=== PATIENT | female | born 1940 | race Caucasian/White ===

== ENCOUNTER 2020-01-09 15:05 | Inpatient (IN) | payer MEDICARE, SELFPAY ==
[2020-01-09] VITALS (9 sets, daily range): BP systolic 129–174; BP diastolic 68–102; PULSE 71–89; RESP 16–24; TEMP 36.3–36.4; O2SAT 91–99; BMI 22.2
--- NOTE | ~2020-01-09 | CT_ITS ---
EXAMINATION: CT brain wo con DATE: 01/09/2020 20:08 INDICATION: Headache TECHNIQUE: Computed tomography (CT) of the head was performed without intravenous contrast. The dose- length product was 605.33 mGy-cm. Contrast is identified from prior CT arteriogram procedure. COMPARISON: None FINDINGS: Mild generalized atrophy. There are scattered mild periventricular and subcortical white ma tter changes, most likely related to small vessel ischemic disease (microangiopathy). There is a meeting specialist madeline lacunar infarction of the courtney. No acute intracranial hemorrhage, infarction, mass or mass effect . Midline sagittal images are unremarkable. IMPRESSION: 1. No acute intracranial abnormality. 2: Chronic lacunar infarction of the courtney. 3: Chronic age-related findings. Reviewed, dictated and finalized at location A.
--- NOTE | ~2020-01-09 | US_ITS ---
EXAMINATION: US arterial duplex UE RT DATE: 01/10/2020 10:10 INDICATION: Right brachial artery occlusion. TECHNIQUE: Multiple grayscale and Doppler ultrasound images of the right upper limb were obtained. COMPARISON: CTA 01/09/2020 FINDINGS: There is thrombus in distal right brachial artery with total occlusion of proximal ulnar ar ashish. There is reconstitution of flow in more distal ulnar artery. Peak systolic velocities are 94 cm /s in right innominate artery, 85 cm/s in right subclavian artery, 69 cm/s in right axillary artery, 114 cm/s in mid right brachial artery, 71 cm/s in right radial artery, and 40 cm/s in right ulnar art anisa. IMPRESSION: 1. Total occlusion of the junction of right brachial artery and ulnar artery with reconstitution. Reviewed, dictated and finalized at location A. IMPRESSION: 1. Total occlusion of the junction of right brachial artery and ulnar artery wi th reconstitution.
--- NOTE | ~2020-01-09 | CT_ITS ---
EXAMINATION: CTA UE RT DATE: 01/09/2020 17:27 INDICATION: Numbness in the arm for one hour. Arm is cold. Physician unable to find ulnar and radial pulses. TECHNIQUE: Computed tomography (CT) of the right upper extremity arteries was performed with 150 cc O mnipaque 350 intravenous contrast. The dose-length product was 1104.87 mGy-cm. Automated exposure con trol and iterative reconstruction technique were employed. COMPARISON: None FINDINGS: There is focal occlusion involving approximately 1.7 cm length of the right brachial artery distally at the level of the antecubital fossa. No adjacent obstructing masses or fluid collections identified. No evidence for hematoma or active extravasation of contrast. There is reconstitution of the radial and ulnar arteries after the segment. Attenuated flow in the ulnar artery. IMPRESSION: 1. Focal segmental occlusion right brachial artery at the level of the antecubital fossa with reconst itution distally in the radial and ulnar arteries. Attenuated flow noted in the ulnar artery. Reviewed, dictated and finalized at location A. IMPRESSION: 1. Focal segmental occlusion right brachial artery at the level of the antecubi jameson fossa with reconstitution distally in the radial and ulnar arteries. Attenu ated flow noted in the ulnar artery.
--- NOTE | 2020-01-09 16:14 | PC.NURSE ---
UNABLE TO PALPATE PULSE R RADIAL, ATTEMPTED TO DOPPLER, UNABLE TO FIND PULSE WITH DOPPLER.
--- NOTE | 2020-01-09 16:22 | PC.NURSE ---
JOHN BASHIR AT BEDSIDE. ATTEMPTING TO DOPPLE PULSES.
[2020-01-09 16:31] LABS: Basophils Percent Auto 0.4 % (0.2-1.2); Eosinophils Absolute Auto 0.1 K/mm3 (0-0.3); Eosinophils Percent Auto 0.7 % (0-4.4); Hematocrit 43.7 % (37.0-47.0); Hemoglobin 15.1 g/dL (12.0-15.0); Immature Granulocyte Percent A 0.9 % (0-0.5); Lymphocytes Absolute Auto 1.61 K/mm3 (0.9-3.2); Lymphocytes Percent Auto 14.1 % (18.3-44.2); Mean Corpuscular HGB Conc 34.6 g/dl (32-36); Mean Corpuscular Hemoglobin 31.2 pg (26-34); Mean Corpuscular Volume 90.3 fl (80-100); Mean Platelet Volume 10.8 fl (7.4-10.4); Monocytes Absolute Auto 0.8 K/mm3 (0.1-0.6); Monocytes Percent Auto 7.1 % (2.6-8.5); Neutrophils Absolute Auto 8.8 K/mm3 (1.3-6.7); Neutrophils Percent Auto 76.8 % (45.5-73.1); Platelet Count Result 151 k/mm3 (150-375); Red Blood Count 4.84 M/mm3 (4.2-5.4); Red Cell Distribution Width 11.9 % (11.5-14.5); White Blood Count 11.4 K/mm3 (4.5-10.0)
--- NOTE | 2020-01-09 16:32 | ED.UPPEXIN ---
HPI - Extremity Injury (Upper) General Chief Complaint: Extremity Injury, Upper Stated Complaint: tingling in arm/cold arm Time Seen by Provider: 01/09/20 16:11 Source: patient Mode of arrival: ambulatory Limitations: no limitations History of Present Illness HPI narrative: This patient is a 79 year old female who presents for evaluation of right arm numbness and tingling. She states starting 2 hours ago she developed tingling to her right arm while working in the garden. She also noticed that her right hand seemed to be cold and her states he felt a weaker pulse in her right hand. She also states she had weakness to right hand. Her symptoms appear to be lessening. She takes coumadin for atrial fibrillation. On Thursday she decreased her coumadin in half to 2 mg because she was starting antibiotics. She denies other focal deficits. She denies slurred speech. complaint: injury to: right Related Data Home Medications Medication Instructions Recorded Confirmed albuterol sulfate 2 puff INHALATION DAILY 01/09/20 01/09/20 doxycycline hyclate 100 mg PO DAILY 01/09/20 01/09/20 lisinopril 20 mg PO DAILY 01/09/20 01/09/20 omeprazole 20 mg PO DAILY 01/09/20 01/09/20 oxycodone-acetaminophen [Percocet] 1 tablet PO Q8H PRN 01/09/20 01/09/20 potassium chloride 20 meq PO DAILY 01/09/20 01/09/20 simvastatin 40 mg PO DAILY 01/09/20 01/09/20 warfarin 4 mg PO DAILY 01/09/20 01/09/20 Allergies Allergy/AdvReac Type Severity Reaction Status Date / Time No Known Allergies Allergy Verified 01/09/20 16:07 Review of Systems Review of Systems: All systems reviewed & are unremarkable except as noted in HPI and below Eyes: Eyes: Reports no additional eye complaints ENT: Denies epistaxis Cardiovascular: Cardiovascular: Denies chest pain Respiratory: Respiratory: Reports cough (chronic) and Denies dyspnea Gastrointestinal: Gastrointestinal: Denies abdominal pain, Denies nausea and Denies vomiting Neurologic: Denies headache(s), Reports focal weakness and Reports numbness PMFSH Past Medical History Medical History (Updated 01/09/20 @ 23:38 by Nicolasa Crowley MD) Atrial fibrillation on chronic anticoagulation with Coumadin GERD (gastroesophageal reflux disease) Kidney stones Rheumatoid arthritis Surgical History Surgical History (Updated 01/09/20 @ 23:29 by Tanisha Dumont DO) History of dilation and curettage 1998 History of lobectomy of lung right middle lobe 12/2013 History of tubal ligation 1974 Family History Family History (Updated 01/09/20 @ 23:30 by Tanisha Dumont DO) Mother Cancer Hypertension CHF (congestive heart failure) Acute myocardial infarction Father Cancer Social History Social History (Updated 01/09/20 @ 23:31 by Tanisha Dumont DO) Social History: Primary care physician: Dr. Kj Langley Code status: Full code Smoking packs per day: 1.5 Smoking cigarettes per day: 30.0 Years smoked: 62 Smoking pack-years: 93.00 Smoking status: Current every day smoker Alcohol intake: current Substance use: never Substance use type: does not use Gender identity (if verbalized by the patient): Female Spiritual care concerns: No Exam Narrative: Exam Narrative: GENERAL: Well-appearing, well-nourished, and in no acute distress. HEAD: Normocephalic, atraumatic EYES: PERRLA and EOMI, conjunctiva clear without discharge EARS: TM's clear bilaterally without erythema or dullness NOSE: Nares clear, no rhinorrhea or epistaxis THROAT:Mucous membranes moist, Oropharynx normal without erythema, exudate, peritonsillar swelling or fluctuance NECK: Supple, without lymphadenopathy or mass RESPIRATORY: No respiratory distress, Airway patent, Respirations non-labored, Clear to auscultation without rales, rhonchi or wheeze HEART: Regular rate and rhythm. No murmur heard. Normal peripheral pulses. ABDOMEN: Soft, nontender, nondistended, normal act
[2020-01-09 16:44] LABS: INR 1.6; Prothrombin Time 18.5 Seconds (11.1-14.7)
[2020-01-09 16:45] LABS: Partial Thromboplastin Time 28.4 SECONDS (22.3-36.8)
[2020-01-09 16:50] LABS: Anion Gap 13.8 mmol/L (7-16); Blood Urea Nitrogen 19 mg/dL (7-17); Calcium 7.7 mg/dL (8.4-10.2); Carbon Dioxide 25 mmol/L (22-30); Chloride 104 mmol/L (98-107); Estimated CRCL calculation 64 ml/min; Estimated Glomerular Filt Rate > 60; Glucose 175 mg/dL (65-105); Potassium 2.8 mmol/L (3.4-5.0); Sodium 140 mmol/L (137-145)
--- NOTE | 2020-01-09 17:02 | PC.NURSE ---
PT IN ULTRASOUND AT THIS TIME WILL MEDICATE PER PROVIDER ORDER UPON RETURN.
--- NOTE | 2020-01-09 17:05 | ECG_ITS ---
Measurements Intervals [place] Rate: 79 P: MI: 0 QRS: 29 QRSD: 92 T: 46 QT: 407 QTc: 469 Interpretive Statements ATRIAL FIBRILLATION BORDERLINE R WAVE PROGRESSION, ANTERIOR LEADS NONSPECIFIC ST & T-WAVE ABNORMALITY- INF/LAT LEADS ABNORMAL ECG Electronically Signed On 01-09-2020 19:59:13 CDT by Rashawn Castro D.O.
[2020-01-09] MEDS: HEPARIN SOD/D5W 100 UNITS/ML 25,000 UNITS/250 ML BAG 13 UNITS IV CONT (17:29)
[2020-01-09] MEDS: HEPARIN SODIUM 5,000 UNITS/ML VIAL 5500 UNITS IV PUSH (17:29)
--- NOTE | 2020-01-09 17:31 | PC.NURSE ---
PT BACK FROM CT/ULTRASOUND, HAS BEEN MEDICATED PER PROVIDER ORDER.
[2020-01-09] MEDS: NITROGLYCERIN OINTMENT 1 INCH DOSE TRANSDERM (18:15)
--- NOTE | 2020-01-09 18:18 | PC.NURSE ---
PER JOHN BASHIR, MEAL TRAY CAN BE CALLED AT THIS TIME PRIOR TO CAFE CLOSING, BUT PT CANNOT EAT UNTIL THE VASCULAR SURGEON CALL THE EDP BACK.
[2020-01-09] MEDS: POTASSIUM CHLORIDE 20 MEQ TABLET 40 MEQ PO (18:23)
--- NOTE | 2020-01-09 19:02 | PC.NURSE ---
PER ERP KRYSTEN, PT CAN EAT, NITRO PASTE IS TO BE MOVED FROM PT CHEST TO HER R LOWER ARM, RADIAL PULSES HAVE RETURNED PER ERP KRYSTEN.
--- NOTE | 2020-01-09 19:07 | PC.NURSE ---
PT REPORT TO JEFFREY ESPARZA AT THIS TIME, HE HAS ASSUMED PT CARE.
--- NOTE | 2020-01-09 20:02 | PC.NURSE ---
Upon assessment this nurse assessment Pt states right side of her head hurts and it radiates to right side of neck. Pt stated to MD Crowley the top of her head hurts with pain radiating to right side of her neck. Denies any leg or arm pain at this time. New orders given and fulfilled at this time.
--- NOTE | 2020-01-09 22:08 | ADMGEN ---
This patient, Sonia Green, was admitted to IMU Room 202-01. Patient/family oriented to hospital policies and general routines including ID bracelet, bed and alarms, visiting hours, pain management, procedures, bathroom and other care routines, personal items, smoking policy, room service/diet, and visiting hours. Valuables list has been completed. Information on how to activate the Rapid Response Team has been discussed. Patient/Family are encouraged to report perceived risks to care and to ask questions if they do not understand what they are told or what they should do.
--- NOTE | 2020-01-09 23:25 | PM.IMHP ---
H&P: HPI History of Present Illness Chief complaint: subtherapeutic INR, intermittent right arm Narrative: Date and time of patient contact: 01/09/2020 at 11:30 p.m. Sonia Green is a 79 year old female with a past medical history of atrial fibrillation on chronic anticoagulation with Coumadin who presented to the ER with cold painful right upper extremity. the patient reports that she was out picking blackberries when she began having tingling in her right hand. Her hand rapidly became cold and quite painful. she noticed that she could no longer see her pulse and her wrist. She was having trouble opening and closing her fist. When the symptoms were worsening over a 20 or 30 minutes. She decided to come immediately to the ER. In the ER was noted that she did not have a pulse in her right radial artery. She had a CTA of the upper extremity which demonstrated focal segmental occlusion of the right brachial artery at the level of the antecubital fossa with reconstitution distally the radial ulnar arteries. Patient was started on heparin drip with immediate improvement in her symptoms. The patient had recently been placed on antibiotic therapy for a bronchitis. Her Coumadin dose had been decreased by her primary care physician at the time of initiation of antibiotic therapy. When she arrived to the ER the patient's INR was noted to be 1.6. Review of Systems Review of Systems: Narrative: 12 systems were reviewed with pertinent positives and negatives per HPI. Except as documented in the HPI, all other systems were reviewed and are negative. [facility] Past Medical History Medical History (Updated 01/10/20 @ 08:40 by Eris Ahumada MD) Atrial fibrillation on chronic anticoagulation with Coumadin GERD (gastroesophageal reflux disease) Kidney stones Rheumatoid arthritis Surgical History Surgical History (Updated 01/10/20 @ 08:45 by Tanisha Dumont DO) History of bilateral carpal tunnel release in the 1980s History of dilation and curettage 1998 History of lobectomy of lung right middle lobe 12/2013 History of tubal ligation 1974 Family History Family History Mother , in her 80s due to heart failure Hypertension CHF (congestive heart failure) Acute myocardial infarction Fallopian tube cancer, carcinoma Father Carcinoma of colon Social History Social History (Updated 01/10/20 @ 08:44 by Tanisha Dumont DO) Social History: Primary care physician: Dr. Kj Langley Code status: Full code Smoking packs per day: 1.5 Smoking cigarettes per day: 30.0 Years smoked: 62 Smoking pack-years: 93.00 Smoking status: Current every day smoker Alcohol intake: current Substance use: never Substance use type: does not use Additional living arrangements comments: She lives with her of 53 years. 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 Gender identity (if verbalized by the patient): Female Spiritual care concerns: No Meds Home Medications and Allergies Home Medications Medication Instructions Recorded Confirmed Type albuterol sulfate 2 puff INHALATION DAILY 01/09/20 01/09/20 History doxycycline hyclate 100 mg PO DAILY 01/09/20 01/09/20 History lisinopril 20 mg PO DAILY 01/09/20 01/09/20 History omeprazole 20 mg PO DAILY 01/09/20 01/09/20 History oxycodone-acetaminophen [Percocet] 1 tablet PO Q8H PRN 01/09/20 01/09/20 History potassium chloride 20 meq PO DAILY 01/09/20 01/09/20 History simvastatin 40 mg PO DAILY 01/09/20 01/09/20 History warfarin 4 mg PO DAILY 01/09/20 01/09/20 History Allergies Allergy/AdvReac Type Severity Reaction Status Date / Time No Known Allergies Allergy Verified 01/09/20 16:07 Vital Signs Vital Signs - 24 hr 01/09/20 15:23 01/09/20 16:22 01/09/20 17:25 Temperature 97.4 F L Pulse Rate 75 71 89 Re
[2020-01-09 23:56] LABS: Partial Thromboplastin Time > 200.0 SECONDS (22.3-36.8)
[2020-01-10] VITALS (12 sets, daily range): BP systolic 138–154; BP diastolic 71–82; PULSE 64–87; RESP 18–20; TEMP 36.1–36.8; O2SAT 95–98
--- NOTE | 2020-01-10 | ECHO_ITS ---
Patient Info Name: Sonia Green Age: 79 years : 1940 Gender: Female Ht: 67 in Wt: 142 lbs BSA: 1.75 m2 HR: 75 bpm BP: 152 / 82 mmHg Heart Rhythm: Atrial Fibrillation Technical Quality: Excellent Exam Date: 01/10/2020 7:58 AM Exam Location: [facility] Patient Status: Outpatient Admit Date: 01/09/2020 Staff Ordering Physician: Eris Ahumada MD Car Dryer: Kajal Layne RDCS Attending Provider: Claudette Valdez PA-C Exam Type: CA echo doppler color flow Study Info Indications I48.1 - Persistent atrial fibrillation Complete two-dimensional, color flow and Doppler transthoracic echocardiogram is performed. Summary 1. Left ventricular chamber dimension is normal. 2. Left ventricular wall thickness is normal. 3. A small intramural thrombus is visualized in the left ventricular apex. 4. Mild hypokinesis of the left ventricular apical cap. 5. Left ventricular systolic function is mildly reduced with an ejection fraction by Biplane Method of Discs of 48 %. 6. Evidence for elevated left venticular end-diastolic pressure. 7. E/e' 16.0 is elevated. 8. Left atrial chamber dimension is moderately enlarged. 9. There is mild to moderate mitral valve regurgitation. 10. There is mild to moderate tricuspid valve regurgitation. 11. Mild pulmonary hypertension, estimated pulmonary arterial systolic pressure is 44 mmHg. Left Ventricle Left ventricular chamber dimension is normal. Left ventricular wall thickness is normal. A small intramural thrombus is visualized in the left ventricular apex. Mild hypokinesis of the left ventricular apical cap. Left ventricular systolic function is mildly reduced with an ejection fraction by Biplane Method of Discs of 48 %. Evidence for elevated left venticular end-diastolic pressure. E/e' 16.0 is elevated. Left ventricular chamber dimension is normal. Left ventricular systolic function is mildly reduced, estimated at Empty. E/e' 16.0 is elevated. Right Ventricle Right ventricular chamber dimension is normal. Right ventricular wall thickness is normal. Right ventricular systolic function is normal. Right ventricular chamber dimension is normal. Right ventricular systolic function is normal. Left Atria Left atrial chamber dimension is moderately enlarged. Left atrial chamber dimension is moderately enlarged. Right Atria Right atrial chamber dimension is mildly enlarged. Right atrial chamber dimension is mildly enlarged. Atrial Septum Interatrial septum not well visualized by 2D imaging. Interatrial septum not well visualized by 2D imaging. Aortic Valve mild sclerosis of the aortic valve leaflets. There is trace aortic valve regurgitation. There is no aortic valve stenosis. There is no aortic valve stenosis. There is trace aortic valve regurgitation. Pulmonic Valve Pulmonary valve is not well visualized. There is trace pulmonic regurgitation. There is no pulmonic valve stenosis. There is no pulmonic valve stenosis. There is trace pulmonic regurgitation. Mitral Valve The mitral valve has thickened leaflets. There is mild to moderate mitral valve regurgitation. There is no mitral valve stenosis. The mitral valve has thickened leaflets. There is no mitral valve stenosis. There is mild to moderate mitral valve regurgitation. Tricuspid Valve The tricuspid valve leaflets are normal. There is mild to moderate tricuspid valve regurgitation. Mild pulmonary hypertension, estimated pulmonary ar
[2020-01-10 05:06] LABS: Basophils Percent Auto 0.3 % (0.2-1.2); Eosinophils Absolute Auto 0.1 K/mm3 (0-0.3); Eosinophils Percent Auto 0.6 % (0-4.4); Hematocrit 41.5 % (37.0-47.0); Hemoglobin 14.1 g/dL (12.0-15.0); Immature Granulocyte Absolute 0.08 K/mm3 (0.00-0.031); Immature Granulocyte Percent A 0.6 % (0-0.5); Immature Platelet Fraction Pct 6.4 % (0.9-11.2); Lymphocytes Percent Auto 25.3 % (18.3-44.2); Mean Corpuscular Hemoglobin 30.3 pg (26-34); Mean Corpuscular Volume 89.2 fl (80-100); Mean Platelet Volume 11.3 fl (7.4-10.4); Monocytes Absolute Auto 0.9 K/mm3 (0.1-0.6); Neutrophils Absolute Auto 8.6 K/mm3 (1.3-6.7); Neutrophils Percent Auto 66.2 % (45.5-73.1); Platelet Count Result 132 k/mm3 (150-375); Red Blood Count 4.65 M/mm3 (4.2-5.4); Red Cell Distribution Width 11.8 % (11.5-14.5)
[2020-01-10 05:20] LABS: Anion Gap 9.9 mmol/L (7-16); Blood Urea Nitrogen 16 mg/dL (7-17); Calcium 7.6 mg/dL (8.4-10.2); Carbon Dioxide 27 mmol/L (22-30); Chloride 104 mmol/L (98-107); Estimated CRCL calculation 64 ml/min; Estimated Glomerular Filt Rate > 60; Glucose 91 mg/dL (65-105); Potassium 2.9 mmol/L (3.4-5.0); Sodium 138 mmol/L (137-145)
--- NOTE | 2020-01-10 08:31 | PM.CNCAR ---
Assessment and Plan Assessment and plan (1) Ischemia of right upper extremity: Code(s): I99.8 - Other disorder of circulatory system Status: Acute Assessment and Plan: She seems to have acute occlusion of right brachial artery, likely is due to thrombus from cardiac source as she has atrial fibrillation. She seems to be much better now with heparin, and nitroglycerin, will repeat arterial duplex to look at the lesion site, now is that she has better pulse is I think the clot is resolved. If there is no residual lesion then she can be switched to Eliquis 10 twice a day for 7 days and continue with 5 bid for treatment for atrial fibrillation (2) Chronic hypokalemia: Code(s): E87.6 - Hypokalemia Status: Acute (3) Subtherapeutic international normalized ratio (INR): Code(s): R79.1 - Abnormal coagulation profile Status: Acute Assessment and Plan: due to the event she has no longer a candidate for Coumadin she should be switched to Eliquis long-term (4) Critical ischemia of upper extremity: Code(s): I99.8 - Other disorder of circulatory system Status: Acute Assessment and Plan: with subacute occlusion of the distal brachial artery, now better with the use of heparin and nitroglycerin, she needs to be on Eliquis for long-term anticoagulation (5) Chronic atrial fibrillation: Code(s): I48.20 - Chronic atrial fibrillation, unspecified Status: Acute Assessment and Plan: she has chronic atrial fibrillation rate is well controlled, which he needs to be on better agent for anticoagulation. Echocardiogram done today showed slightly abnormal left ventricular systolic function with EF 45% and lateral hypokinesis. History of Present Illness History of Present Illness Consult date/time: 01/10/20 08:31 chief complaint is right arm pain and numbness 79-year-old lady with history of hypertension, history of chronic atrial fibrillation and history of dyslipidemia into the hospital because of sudden onset feeling of pain and numbness of the right arm. As she was working outside in the y[place] she had sudden onset feeling of numbness of the l right arm at the level of the elbow and from there below subsequently had significant weakness and pain to that area and then the pain and numbness start climbing up to the level of close to right shoulder. Initially noted not to have pulse at the radial per ER note, CT of the arm was done showed subtotal occlusion of the brachial artery, with some blood flowing distally to ulnar and radial artery. She was started on heparin and nitroglycerin locally, subsequently pulse improved and subsequently she felt better. Apparently she is on Coumadin for atrial fibrillation and her INR is 1.6. Was recently changed due to the fact that she was started on antibiotics. She is on Coumadin for AFib and is managed by primary care physician. No history of stroke nausea palpitation no history of dizziness. No history of known coronary artery disease no history of previous myocardial infarction. Reason For Visit: subtherapeutic INR, intermittent right arm Review of Systems Constitutional: Constitutional: Reports fatigue Cardiovascular: Cardiovascular: Reports as per HPI Respiratory: Respiratory: Reports dyspnea on exertion PMFSH Past Medical History Medical History Atrial fibrillation on chronic anticoagulation with Coumadin GERD (gastroesophageal reflux disease) Kidney stones Rheumatoid arthritis Surgical History Surgical History History of dilation and curettage 1998 History of lobectomy of lung right middle lobe 12/2013 History of tubal ligation 1974 Family History Family History Mother Cancer Hypertension CHF (congestive heart failure) Acute myocardial infarction
[2020-01-10 08:52] LABS: Partial Thromboplastin Time > 200.0 SECONDS (22.3-36.8)
[2020-01-10] MEDS: APIXABAN 5 MG TABLET 10 MG PO (10:05)
[2020-01-10] MEDS: amLODIPine BESYLATE 2.5 MG TABLET PO ×2 (10:06→16:50)
[2020-01-10] MEDS: PANTOPRAZOLE 40 MG TABLET PO (10:08)
[2020-01-10] MEDS: SIMVASTATIN 20 MG TABLET 40 MG PO (10:09)
[2020-01-10] MEDS: POTASSIUM CHLORIDE 20 MEQ TABLET.ER 40 MEQ PO (10:09)
[2020-01-10] MEDS: lisinopriL 20 MG TABLET PO (11:21)
[2020-01-10 12:04] LABS: Potassium 3.7 mmol/L (3.4-5.0)
[2020-01-10 12:07] LABS: Magnesium 0.5 mg/dL (1.6-2.3)
[2020-01-10] MEDS: MAGNESIUM SULFATE 3GM/D5W100ML 3 GM/100 ML BAG IVPB (13:15)
[2020-01-10 15:17] LABS: Magnesium 1.8 mg/dL (1.6-2.3)
--- NOTE | 2020-01-10 15:41 | PM.DS ---
DS: Admitting Diagnosis Admitting Diagnosis Admitting Diagnosis: Other disorder of circulatory system DS: Discharge Diagnosis Discharge Diagnosis (1) Critical ischemia of upper extremity: Code(s): I99.8 - Other disorder of circulatory system Status: Acute Assessment and Plan: ----- on admission, the patient had pain and numbness to right upper extremity and the extremity was cold. In the ER she had an upper extremity CTA which showed focal segmental occlusion of the right brachial artery at the level of the antecubital fossa with reconstruction distally in the radial and ulnar arteries. Attenuated flow noted in the ulnar artery. Patient was already on Coumadin but her INR was subtherapeutic. She was placed on a heparin drip and her symptoms improved. She saw Dr. Ahumada while hospitalized. She had good pulses and was back to baseline throughout her stay. She did undergo a Doppler ultrasound which showed total occlusion although she had good pulses without symptoms. I spoke with Dr. Ahumada about these results and he said to transition her to Eliquis and follow-up in the office in 1 week. The patient has a history of atrial fibrillation with subtherapeutic INR. (2) Chronic atrial fibrillation: Code(s): I48.20 - Chronic atrial fibrillation, unspecified Status: Acute Assessment and Plan: ----- Rate controlled, now on Eliquis. (3) Subtherapeutic international normalized ratio (INR): Code(s): R79.1 - Abnormal coagulation profile Status: Acute Assessment and Plan: ----- Patient transition to Eliquis (4) Chronic hypokalemia: Code(s): E87.6 - Hypokalemia Status: Acute Assessment and Plan: ----- hypokalemic likely due to her magnesium which was 0.6. This was replaced and she was placed on magnesium at discharge. Repeat BMP [address] Ahumada agrees to follow with this. (5) GERD (gastroesophageal reflux disease): Code(s): K21.9 - Gastro-esophageal reflux disease without esophagitis Status: Acute Assessment and Plan: ----- Continue home medications (6) Hypertension: Code(s): I10 - Essential (primary) hypertension Status: Acute Assessment and Plan: ----- blood pressure 138/74. Continue home medications (7) Hypomagnesemia: Code(s): E83.42 - Hypomagnesemia Status: Acute Assessment and Plan: ----- Supplement (8) PVCs (premature ventricular contractions): Code(s): I49.3 - Ventricular premature depolarization Status: Acute Assessment and Plan: ----- asymptomatic and likely due to decreased Mag. Mag was given at discharge as well as metoprolol started. (9) Systolic heart failure: Code(s): I50.20 - Unspecified systolic (congestive) heart failure Status: Acute Assessment and Plan: newly diagnosed but euvolemic and not in exacerbation. Plan is to follow-up with cardiology for an outpatient catheterization. She does have mild hypokinesis with an EF of 48%. DS: Summary Hospital Course Reason for hospitalization: right limb ischemia Hospital Course: patient is a 79-year-old female who presented emergency room for sudden onset of right arm numbness and tingling found to have a cold limb. Vitals were stable in the ER. Initial white blood cell count 11.4, hemoglobin 15.1, hematocrit 43.7, platelets 151. BMP showed a critical potassium 2.8 which was replaced. Patient's symptoms were resolving while in the ER and was admitted to the hospitalist service With cardiology consult. Please see above for further details. Patient was educated about the worrisome signs and symptoms come back to emergency room for was discharged stable condition and plans to follow-up with cardiology in 1 week. Status at Discharge Functional status at discharge: independent ambulation Overall status at discharge: patient is back to baseline Time
== END 2020-01-10 17:27 | disposition home or self-care (01) | DRG 303 ==
LOC: ANHED 19:13 → ANHIMU 20:48
PROVIDERS: Physician Assistant; Admitting Provider Internal Medicine; Emergency Provider General Practice; PCP Family Medicine; Visit Provider Internal Medicine
DX: I99.8 Other disorder of circulatory system (principal); E83.42 Hypomagnesemia; E87.6 Hypokalemia; I48.20 Chronic atrial fibrillation, unspecified; I11.0 Hypertensive heart disease with heart failure; I50.20 Unspecified systolic (congestive) heart failure; I49.3 Ventricular premature depolarization; R79.1 Abnormal coagulation profile; K21.9 Gastro-esophageal reflux disease without esophagitis; M06.9 Rheumatoid arthritis, unspecified; F17.210 Nicotine dependence, cigarettes, uncomplicated; Z79.01 Long term (current) use of anticoagulants; Z79.899 Other long term (current) drug therapy; Z87.442 Personal history of urinary calculi
CPT/HCPCS: 36415; 70450; 73206; 80048; 83735; 84132; 85025; 85055; 85610; 85730; 93005; 93306; 93931; 96365; 96366; 96375; 99285; A9270; G0378; J0131; J1644; J3475; Q9967

== ENCOUNTER 2020-08-14 14:38 | Outpatient (CLI) | payer MEDICARE, SELFPAY | END 2020-08-14 14:39 | disposition home or self-care (01) | LOC: ANHCOVIDVC 14:38 | PROVIDERS: PCP Family Medicine; Visit Provider Family Medicine | DX: Z23 Encounter for immunization (principal) | CPT/HCPCS: 0001A; 91300 ==

== ENCOUNTER 2020-09-04 14:37 | Outpatient (CLI) | payer MEDICARE, SELFPAY | END 2020-09-04 14:38 | disposition home or self-care (01) | LOC: ANHCOVIDVC 14:37 | PROVIDERS: PCP Family Medicine | DX: Z23 Encounter for immunization (principal) | CPT/HCPCS: 0002A; 91300 ==

== ENCOUNTER → 2021-11-18 14:59 | Outpatient (CLI) | payer MEDICARE, SELFPAY ==
--- NOTE | ~2021-11-18 | XR_ITS ---
XR lumbar spine min 4V DATE: 11/18/2021 15:20 INDICATION: Lumbago, sciatica TECHNIQUE: AP, bilateral oblique, lateral and coned lateral lumbosacral views COMPARISON: 05/26/2013 CT abdomen pelvis FINDINGS: Mild rotatory levoscoliosis of the lumbar spine. There is mild to moderate loss of height and anterior wedging of L2 consistent with compression fract ure, not present on 05/26/2013. No other lumbar spine fracture There is moderate degenerative disc disease at L3-4 and L5-S1. Is evident. There is diffuse osteopenia. There is severe degenerative disc disease and minimal grade 1 anterolisthesis at L4-5. There is promi nent degenerative change at the apophyseal joints of the lower lumbar and lumbosacral area. No spondy lolysis is noted. The sacroiliac joints are intact. Abdominal aortic calcification, without apparent aneurysm. Bilateral common iliac artery calcificatio n. IMPRESSION: Mild to moderate L2 compression fracture Osteopenia Severe degenerative disc disease at L4-5 Moderate degenerative disc disease at L3-4 and L5-S1 Middle grade 1 anterolisthesis at L4-5 due to degenerative change at the apophyseal joints Reviewed, dictated and finalized at location A. IMPRESSION: Mild to moderate L2 compression fracture Osteopenia Severe degenerative disc disease at L4-5 Moderate degenerative disc disease at L3-4 and L5-S1 Middle grade 1 anterolisthesis at L4-5 due to degenerative change at the apophy seal joints
== END ==
PROVIDERS: PCP Family Medicine; Visit Provider Family Medicine
DX: M54.40 Lumbago with sciatica, unspecified side (principal); M51.36 Other intervertebral disc degeneration, lumbar region; M51.37 Other intervertebral disc degeneration, lumbosacral region; M85.88 Other specified disorders of bone density and structure, other site
CPT/HCPCS: 72110

== ENCOUNTER 2022-01-16 12:25 | Outpatient (CLI) | payer MEDICARE, SELFPAY ==
--- NOTE | ~2022-01-16 | MR_ITS ---
EXAMINATION: MR brain/brain stem wo con DATE: 01/16/2022 13:07 INDICATION: Altered mental status, unspecified. TECHNIQUE: Magnetic resonance imaging (MRI) of the brain and brainstem was performed without intraven ous contrast. COMPARISON: Head CT 01/09/2020 FINDINGS: There are scattered areas of nonspecific increased T2-weighted signal intensity in the cere bral white matter. There is an old lacunar infarct in the courtney. There is no intracranial hemorrhage, acute infarction, or abnormal intracranial mass lesion. The ventricles are normal in size. The [place] sinuses are clear. There are likely changes of ocular lens replacement surgeries. The mastoid air cells are normal. IMPRESSION: 1. 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 2. Moderate nonspecific cerebral white matter disease , which likely represents chronic small vessel ischemic disease. Reviewed, dictated and finalized at location A.
== END 2022-01-16 12:26 | disposition home or self-care (01) ==
PROVIDERS: PCP Family Medicine; Visit Provider Family Medicine
DX: R41.82 Altered mental status, unspecified (principal); R93.0 Abnormal findings on diagnostic imaging of skull and head, not elsewhere classified
CPT/HCPCS: 70551

== ENCOUNTER 2022-05-15 00:57 | Day surgery (SDC) | payer MEDICARE, SELFPAY ==
[2022-05-05 11:27] VITALS: BMI 22.1
--- NOTE | 2022-05-15 10:34 | PM.HPGS ---
History of Present Illness History of Present Illness Consent: Risks, benefits, and alternatives have been discussed and questions answered. Patient agrees to proceed with procedure. Chief complaint: Diarrhea Narrative: Sonia Green is a 82 year old female Presents for colonoscopy. Patient reports having had diarrhea for 6 months. She has rather persistent loose diarrhea stools. Occasionally will wake her at night. She sometimes light mucous in the small tinge of blood in her stools. She denies any fevers. She has had no weight loss. She reports no recent change in medications. No change in diet. Her family members are all healthy. She has no ill pets. She has not had any significant travel recently. Recent stool cultures found to be negative. She does report that she ate peanut butter in the spring and at that time it was recalled because of salmonella possibly. Review of Systems Review of Systems: Review of systems noncontributory. [facility] Past Medical History Medical History (Updated 05/15/22 @ 10:36 by Will Worley MD) Atrial fibrillation on chronic anticoagulation with Coumadin GERD (gastroesophageal reflux disease) GERD (gastroesophageal reflux disease) Hyperlipidemia Hypertension Kidney stones Rheumatoid arthritis TIA (transient ischemic attack) Surgical History Surgical History (Updated 01/10/20 @ 08:45 by Tanisha Dumont DO) History of bilateral carpal tunnel release in the History of dilation and curettage 1998 History of lobectomy of lung right middle lobe 12/2013 History of tubal ligation 1974 Family History Family History Mother , in her 80s due to heart failure Hypertension CHF (congestive heart failure) Acute myocardial infarction Fallopian tube cancer, carcinoma Father Carcinoma of colon Social History Social History (Updated 01/10/20 @ 08:44 by Tanisha Dumont DO) Social History: Primary care physician: Dr. Kj Langley Code status: Full code Smoking packs per day: 1 Smoking cigarettes per day: 20.0 Years smoked: 60 Smoking pack-years: 60.00 Smoking status: Current every day smoker Tobacco type: cigarettes Alcohol intake: current Alcohol use details: rare Substance use: never Substance use type: does not use Living arrangements: with family Additional living arrangements comments: She lives with her of 53 years. 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 Gender identity (if verbalized by the patient): Female Spiritual care concerns: No Meds Home Medications and Allergies Home Medications Medication Instructions Recorded Confirmed Type albuterol sulfate 90 mcg/actuation 2 puff inhalation DAILY 01/09/20 05/15/22 History aerosol inhaler lisinopril 20 mg tablet 20 mg PO DAILY 01/09/20 05/15/22 History omeprazole 20 mg capsule,delayed 20 mg PO DAILY 01/09/20 05/15/22 History release potassium chloride 20 mEq 20 meq PO DAILY 01/09/20 05/15/22 History tablet,extended release(part/cryst) simvastatin 40 mg tablet 40 mg PO DAILY 01/09/20 05/15/22 History magnesium oxide 200 mg PO BID #60 tabs 01/10/20 05/15/22 Rx metoprolol succinate 25 mg 12.5 mg PO DAILY #30 tabs 01/10/20 05/15/22 Rx tablet,extended release 24 hr warfarin 3 mg tablet 3 mg PO DAILY 05/05/22 05/15/22 History Allergies Allergy/AdvReac Type Severity Reaction Status Date / Time No Known Allergies Allergy Verified 05/15/22 10:14 Exam Narrative: Physical exam reveals patient to be alert. Vital signs stable. HEENT exam is unremarkable. Patient is anicteric. Lungs are clear to auscultation and percussion. Heart is without murmur or extra sounds. Abdomen bowel sounds are present soft nontender with no organomegaly. Digital external rectal exam is normal. Assessment and Plan Assessment and pl
--- NOTE | 2022-05-15 10:35 | WPDANESEPPF ---
Anes - Initial Pre Proc Eval Procedure: Operation Date: 05/15/22 10:30 Proposed Procedures p Colonoscopy - Will Worley MD Date/Time: 05/15/22 10:35 Surgeon: Will Worley MD Pre Op Diagnosis: Diarrhea Patient Data Age: 82 Gender: F Height: 1.7 m Weight: 64 kg Allergies Allergy/AdvReac Type Severity Reaction Status Date / Time No Known Allergies Allergy Verified 05/15/22 10:14 Home Medications Medication Instructions Recorded Confirmed Type albuterol sulfate 90 mcg/actuation 2 puff inhalation DAILY 01/09/20 05/15/22 History aerosol inhaler lisinopril 20 mg tablet 20 mg PO DAILY 01/09/20 05/15/22 History omeprazole 20 mg capsule,delayed 20 mg PO DAILY 01/09/20 05/15/22 History release potassium chloride 20 mEq 20 meq PO DAILY 01/09/20 05/15/22 History tablet,extended release(part/cryst) simvastatin 40 mg tablet 40 mg PO DAILY 01/09/20 05/15/22 History magnesium oxide 200 mg PO BID #60 tabs 01/10/20 05/15/22 Rx metoprolol succinate 25 mg 12.5 mg PO DAILY #30 tabs 01/10/20 05/15/22 Rx tablet,extended release 24 hr warfarin 3 mg tablet 3 mg PO DAILY 05/05/22 05/15/22 History Patient hx anesthesia problems: none Family hx anesthesia problems: none Results Review: All pre-operative results and documents have been reviewed as part of the pre-operative evaluation. [facility] Past Medical History Medical History Atrial fibrillation on chronic anticoagulation with Coumadin GERD (gastroesophageal reflux disease) GERD (gastroesophageal reflux disease) Hyperlipidemia Hypertension Kidney stones Rheumatoid arthritis TIA (transient ischemic attack) Surgical History Surgical History History of bilateral carpal tunnel release in the History of dilation and curettage 1998 History of lobectomy of lung right middle lobe 12/2013 History of tubal ligation 1974 Family History Family History Mother , in her 80s due to heart failure Hypertension CHF (congestive heart failure) Acute myocardial infarction Fallopian tube cancer, carcinoma Father Carcinoma of colon Social History Social History Social History: Primary care physician: Dr. Kj Langley Code status: Full code Smoking packs per day: 1 Smoking cigarettes per day: 20.0 Years smoked: 60 Smoking pack-years: 60.00 Smoking status: Current every day smoker Tobacco type: cigarettes Alcohol intake: current Alcohol use details: rare Substance use: never Substance use type: does not use Living arrangements: with family Additional living arrangements comments: She lives with her of 53 years. 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 Gender identity (if verbalized by the patient): Female Spiritual care concerns: No Anes - Eval Final PreProcedure Day of Procedure 05/15/22 10:35 Patient weight: normal Heart: irregular rhythm Lungs: clear to auscultation Airway: Mallampati scale class II Neurological: other (alert) Last oral intake: >/= 8 hours ASA classification: III Emergent: no Anesthetic plan: proceed Anesthesia type and monitoring: general GIVS and standard monitoring Results Review: All pre-operative results and documents have been reviewed as part of the pre-operative evaluation. Informed Consent: The patient's anesthetic plan and its attendant risks and benefits were discussed with the patient/family/POA. Questions were solicited and answers provided to the satisfaction of the patient/family/POA.
[2022-05-15] MEDS: LACTATED RINGERS 1,000 ML 150 ML IV CONT (10:42)
[2022-05-15 10:49] VITALS: BP 147/94; PULSE 98; RESP 18; TEMP 36.6; O2SAT 98
[2022-05-15 10:59] LABS: INR 1.3
--- NOTE | 2022-05-15 11:20 | SUR.OPER ---
1113: DR HANSEN MADE AWARE OF PT/INR RESULTS, NO NEW ORDERS.
[2022-05-15 11:38] VITALS: BP 153/82; PULSE 76; RESP 20; O2SAT 96
[2022-05-15 11:48] VITALS: BP 148/85; PULSE 83; RESP 26; O2SAT 100
[2022-05-15 11:58] VITALS: BP 159/86; PULSE 74; RESP 21; O2SAT 100
== END 2022-05-15 12:09 | disposition home or self-care (01) ==
PROVIDERS: PCP Family Medicine; Visit Provider Internal Medicine Gastroenterology
PROC: 0DJD8ZZ Inspection of Lower Intestinal Tract, Via Natural or Artificial Opening Endoscopic (ICD-10-PCS; CPT 45378; principal; 2022-05-15 10:30)
DX: K52.832 Lymphocytic colitis (principal); K64.8 Other hemorrhoids; K57.30 Diverticulosis of large intestine without perforation or abscess without bleeding; I48.91 Unspecified atrial fibrillation; I10 Essential (primary) hypertension; E78.5 Hyperlipidemia, unspecified; M06.9 Rheumatoid arthritis, unspecified; K21.9 Gastro-esophageal reflux disease without esophagitis; Z86.73 Personal history of transient ischemic attack (TIA), and cerebral infarction without residual deficits; Z79.51 Long term (current) use of inhaled steroids; Z79.01 Long term (current) use of anticoagulants; Z90.2 Acquired absence of lung [part of]; F17.210 Nicotine dependence, cigarettes, uncomplicated
CPT/HCPCS: 45380; 36415; 85610; 88305; J2704; J7120

== ENCOUNTER 2022-05-27 08:55 | Outpatient (CLI) | payer MEDICARE, SELFPAY ==
--- NOTE | ~2022-05-27 | XR_ITS ---
EXAMINATION: XR small bowel follow through DATE: 05/27/2022 11:27 INDICATION: Diarrhea and bloating TECHNIQUE: Band Aid Machine Operator radiograph(s) of the abdomen was/were obtained. Oral contrast was administered, and sequential radiographs of the abdomen were obtained until oral contrast was noted to be in the proxi mal colon. A total of 16 fluoroscopic images and 7 overhead radiographs of the small bowel were obtai divina. Fluoroscopy exposure time was 2.7 minutes. COMPARISON: 05/26/2013 FINDINGS: Transit time from the stomach to proximal colon was approximately 1 hour. There is a persistent stric ture of an approximately 5-6 cm length of small bowel in the right lower quadrant positioned along th e medial side of the cecum which appears to taper smoothly at the proximal and distal margins with no evident shouldering. On one of the images there appear to be longitudinal folds along the segment. T here is no dilation of the more upstream small bowel to suggest a significant obstruction. The termin al ileum is not well distended but appears unremarkable. There is normal caliber and mucosal fold pat tern throughout the more proximal small bowel. IMPRESSION: 1. Persistent nonobstructing stricture of a 5-6 cm segment of small bowel in the right lower quadrant which could be due to either mural thickening or potentially extrinsic compression. Recommend furthe r evaluation with postcontrast CT of the abdomen and pelvis. Reviewed, dictated and finalized at location A. STRIPPER IMPRESSION: 1. Persistent nonobstructing stricture of a 5-6 cm segment of small bowel in th e right lower quadrant which could be due to either mural thickening or potenti ally extrinsic compression. Recommend further evaluation with postcontrast CT o f the abdomen and pelvis.
== END 2022-05-27 08:56 | disposition home or self-care (01) ==
PROVIDERS: PCP Family Medicine; Visit Provider Internal Medicine Gastroenterology
DX: R19.7 Diarrhea, unspecified (principal)
CPT/HCPCS: 74250

== ENCOUNTER 2022-06-05 09:13 | Outpatient (CLI) | payer MEDICARE, SELFPAY ==
--- NOTE | ~2022-06-05 | CT_ITS ---
CT Abdomen and Pelvis with contrast. History: Abnormal small bowel follow-through, evaluate for bowel obstruction/external compression. Spiral CT of the abdomen and pelvis was performed after the administration of intravenous contrast. 1 00 cc of Omnipaque 350 was administered intravenously without complication. Dose reduction technique was used on this scan by utilizing automated exposure control and iterative reconstruction technique. The dose-length product (DLP) was 310.99 mGy-cm. COMPARISON: 05/26/2013 Findings: Scans through the lung bases demonstrate peripheral, basilar interstitial thickening. The liver, spleen, pancreas, gallbladder, and adrenal glands are within normal limits. Bilateral nono bstructing renal stones are present. No evidence of aortic aneurysm. No lymphadenopathy is seen. There is no evidence of bowel obstruction. There is no evidence to suggest acute appendicitis or dive rticulitis. Images through the pelvis were performed. Urinary bladder unremarkable. No adnexal mass seen. No asci catalino is seen. L2 compression fracture noted. Impression: No significant abnormality of small bowel identified. No extrinsic compression identified. Bilateral nonobstructing nephrolithiasis. L2 compression fracture. Mild bibasilar chronic interstitial pulmonary disease. Reviewed, dictated and finalized at [facility]. W BALER Impression: No significant abnormality of small bowel identified. No extrinsic compression identified. Bilateral nonobstructing nephrolithiasis. L2 compression fracture. Mild bibasilar chronic interstitial pulmonary disease.
[2022-06-05 09:45] LABS: Estimated Glomerular Filt Rate 60
== END 2022-06-05 09:14 | disposition home or self-care (01) ==
PROVIDERS: PCP Family Medicine; Visit Provider Internal Medicine Gastroenterology
DX: R19.7 Diarrhea, unspecified (principal); N20.0 Calculus of kidney; M48.56XA Collapsed vertebra, not elsewhere classified, lumbar region, initial encounter for fracture; J84.9 Interstitial pulmonary disease, unspecified
CPT/HCPCS: 74177; Q9967

== ENCOUNTER 2022-07-19 17:54 | Inpatient (IN) | payer MEDICARE, SELFPAY ==
--- NOTE | ~2022-07-19 | CT_ITS ---
Non-contrast CT scan of the Abdomen and Pelvis Clinical indication: Epigastric pain Technique: 5 mm axial scans were obtained through the abdomen and pelvis without intravenous or oral contrast. Dose reduction technique was used on this scan by utilizing automated exposure control and iterative reconstruction technique. The dose-length product (DLP) was 285.33 mGy-cm. COMPARISON: 06/05/2022 Findings: Images through the lung bases reveal stable mild bibasilar chronic interstitial disease. Bilateral nonobstructing renal stones are present. There is mild left perinephric stranding, which ra ises the possibility of a recently passed left renal stone. No distinct hydronephrosis evident. Proba ble small hyperdense left renal cyst present. The liver, spleen, pancreas, gallbladder, and adrenals appear normal. There is no aortic aneurysm. There is no evidence of bowel obstruction. No evidence to suggest appendicitis. Images through the pelvis were performed. There is no evidence of ascites or lymphadenopathy. Urinary bladder unremarkable. No adnexal mass seen. No ascites. Stable L2 compression fracture noted. Impression: Bilateral nonobstructing nephrolithiasis. Mild asymmetric left perinephric stranding. Correlate for possibility of recently passed left renal s tone. No stoney hydronephrosis evident. No ureteral stone seen currently. Mild bibasilar chronic interstitial pulmonary disease. Reviewed, dictated and finalized at location . PRODUCTION COOK Impression: Bilateral nonobstructing nephrolithiasis. Mild asymmetric left perinephric stranding. Correlate for possibility of recent ly passed left renal stone. No stoney hydronephrosis evident. No ureteral stone seen currently. Mild bibasilar chronic interstitial pulmonary disease.
--- NOTE | ~2022-07-19 | US_ITS ---
Limited Abdominal Sonogram: Real-time sonographic imaging of the right upper quadrant was performed. Clinical History: Epigastric pain Findings: The liver appears normal with no evidence of mass lesion or bile duct dilatation. Main por jameson vein demonstrates normal direction of flow. The gallbladder is well distended, and appears normal with no evidence of gallstone or wall thickening. The common bile duct measures 3 mm. The visualize d pancreas, aorta, and IVC are unremarkable. Impression: No significant abnormality seen. Reviewed, dictated and finalized at location . [employer] Impression: No significant abnormality seen.
--- NOTE | ~2022-07-19 | XR_ITS ---
Clinical Indication: Cough AP and lateral views of the chest: Comparison: 02/02/2015 Findings: The lungs are clear, without evidence of focal consolidation or pleural effusion. Possible COPD. Cardiomediastinal silhouette is within normal limits. Bones and soft tissues are unremarkable. Impression: Possible COPD. Clear lungs. Reviewed, dictated and finalized at location M. CRUSHER OPERATOR Impression: Possible COPD. Clear lungs.
[2022-07-19 17:58] VITALS: BP 114/95; PULSE 87; RESP 18; TEMP 36.7; O2SAT 100
--- NOTE | 2022-07-19 18:08 | ED.WEAKNESS ---
HPI - Weakness General Chief complaint: Weakness <JAMES Clark Last Filed: 07/20/22 01:29> Stated complaint: weakness <JAMES Clark Last Filed: 07/20/22 01:29> Time Seen by Provider: 07/19/22 18:05 <JAMES Clark Last Filed: 07/20/22 01:29> Source: patient and old records reviewed <JAMES Clark Last Filed: 07/20/22 01:29> Mode of arrival: ambulatory <JAMES Clark Last Filed: 07/20/22 01:29> Limitations: no limitations <JAMES Clark Last Filed: 07/20/22 01:29> History of Present Illness HPI Narrative: Patient is an 82 y/o female who presents to the ED with multiple complaints. Patient reports having generalized weakness, intermittent nausea and vomiting, decreased appetite, fatigue, intermittent cough and sore throat. She states her symptoms have been ongoing for the last 2 months. She initially was having issues with diarrhea and underwent upper and lower GI with Dr. Worley which did not reveal any significant abnormalities. She was Rx'd Flagyl for lymphocytic colitis and states her diarrhea has since improved. She denies any fever, abdominal pain, chest pain, difficulty breathing, urinary sx's. Patient states her weakness has gotten to the point that she is hardly able to get around at home. Her children advised her to come to the ED today. <JAMES Clark Last Filed: 07/20/22 01:29> Related Data Home medications: Home Medications Medication Instructions Recorded Confirmed albuterol sulfate 90 mcg/actuation 2 puff inhalation DAILY 01/09/20 05/15/22 aerosol inhaler lisinopril 20 mg tablet 20 mg PO DAILY 01/09/20 05/15/22 omeprazole 20 mg capsule,delayed 20 mg PO DAILY 01/09/20 05/15/22 release potassium chloride 20 mEq 20 meq PO DAILY 01/09/20 05/15/22 tablet,extended release(part/cryst) simvastatin 40 mg tablet 40 mg PO DAILY 01/09/20 05/15/22 warfarin 3 mg tablet 3 mg PO DAILY 05/05/22 05/15/22 <Claudette Yancey PA-C - Last Filed: 07/20/22 01:29> Allergies/Adverse reactions: Allergies Allergy/AdvReac Type Severity Reaction Status Date / Time No Known Allergies Allergy Verified 05/15/22 10:14 <Claudette Yancey PA-C - Last Filed: 07/20/22 01:29> Review of Systems Review of Systems: CONSTITUTIONAL: Reports generalized weakness. Denies fever, chills, or sweats. ENT: See HPI. CARDIOVASCULAR: Denies chest pain. RESPIRATORY: See HPI. GASTROINTESTINAL: See HPI. GENITOURINARY: Denies dysuria or hematuria. MUSCULOSKELETAL: Denies back pain, joint pain, or myalgia. NEUROLOGIC: Denies focal weakness, headache, numbness. <Claudette Yancey PA-C - Last Filed: 07/20/22 01:29> All systems reviewed & are unremarkable except as noted in HPI and below <Claudette Yancey PA-C - Last Filed: 07/20/22 01:29> [facility] Past Medical History Medical History: Medical History Atrial fibrillation on chronic anticoagulation with Coumadin Chronic hypokalemia GERD (gastroesophageal reflux disease) Hyperlipidemia Hypertension Ischemia of right upper extremity (12/2019) Kidney stones Lymphocytic colitis Rheumatoid arthritis TIA (transient ischemic attack) <Claudette Yancey PA-C - Last Filed: 07/20/22 01:29> Surgical History Surgical History: Surgical History History of bilateral carpal tunnel release in the 1980s History of dilation and curettage 1998 History of lobectomy of lung right middle lobe 12/2013 History of tubal ligation 1974 <Claudette Yancey PA-C - Last Filed: 07/20/22 01:29> Family History Family History: Family History Mother , in her 80s due to heart failure Hypertension CHF (congestive heart failure) Acute my
--- NOTE | 2022-07-19 18:20 | ECG_ITS ---
Measurements Intervals [place] Rate: 94 P: ID: 0 QRS: -5 QRSD: 89 T: 50 QT: 338 QTc: 424 Interpretive Statements ATRIAL FIBRILLATION WITH ABERRANT CONDUCTION OR VENTRICULAR PREMATURE COMPLEXES POSSIBLE ANTERIOR MYOCARDIAL INFARCTION , PROBABLY OLD [30 ms Q WAVE IN V3/V4, OR R < 0.2 mV IN V4] ABNORMAL RHYTHM ECG COMPARED TO ECG 01/09/2020 17:38:04 ABERRANT CONDUCTION OF SUPRAVENTRICULAR BEAT(S) NOW PRESENT Electronically Signed On 07-20-2022 11:29:13 MANAGER CLINICAL by Dylan Moser M.D.
[2022-07-19 18:33] LABS: Basophils Percent Auto 0.1 % (0.2-1.2); Eosinophils Percent Auto 0.1 % (0-4.4); Hematocrit 46.5 % (37.0-47.0); Hemoglobin 15.9 g/dL (12.0-15.0); Immature Granulocyte Absolute 1.81 K/mm3 (0.00-0.031); Immature Granulocyte Percent A 6.4 % (0-0.5); Lymphocytes Absolute Auto 2.12 K/mm3 (0.9-3.2); Lymphocytes Percent Auto 7.5 % (18.3-44.2); Mean Corpuscular HGB Conc 34.2 g/dl (32-36); Mean Corpuscular Hemoglobin 30.5 pg (26-34); Mean Corpuscular Volume 89.3 fl (80-100); Mean Platelet Volume 10.4 fl (7.4-10.4); Monocytes Absolute Auto 0.8 K/mm3 (0.1-0.6); Monocytes Percent Auto 2.7 % (2.6-8.5); Neutrophils Absolute Auto 23.4 K/mm3 (1.3-6.7); Neutrophils Percent Auto 83.2 % (45.5-73.1); Platelet Count Result 217 k/mm3 (150-375); Red Blood Count 5.21 M/mm3 (4.2-5.4); Red Cell Distribution Width 14.2 % (11.5-14.5); White Blood Count 28.1 K/mm3 (4.5-10.0)
[2022-07-19] MEDS: SODIUM CHLORIDE 0.9% IV 1,000 ML 999 ML IV CONT ×2 (18:35→19:45)
[2022-07-19 18:52] LABS: Alanine Aminotransferase 374 U/L (6-35); Albumin Level 3.2 g/dL (3.5-5.1); Alkaline Phosphatase 795 U/L (38-126); Anion Gap 10 mmol/L (8-16); Aspartate Amino Transferase 221 U/L (14-36); Bilirubin,Total 1.7 mg/dL (0.2-1.3); Blood Urea Nitrogen 67 mg/dL (7-17); Calcium 8.7 mg/dL (8.4-10.2); Carbon Dioxide 24 mmol/L (22-30); Chloride 104 mmol/L (98-107); Estimated Glomerular Filt Rate 21; Glucose 110 mg/dL (65-110); Sodium 138 mmol/L (137-145)
[2022-07-19 18:57] LABS: Troponin I 0.026 ng/mL (0.000-0.034)
[2022-07-19 19:15] VITALS: BP 159/89; PULSE 83; PULSE 84; RESP 20; O2SAT 100
[2022-07-19 19:22] LABS: Lipase 4438 U/L (23-300)
[2022-07-19 20:05] VITALS: BP 152/86; PULSE 78; RESP 18; O2SAT 97
[2022-07-19 20:14] LABS: Influenza A QL RT-PCR Negative (Negative); Influenza B QL RT-PCR Negative (Negative); SARS-CoV-2 RNA PCR Negative
[2022-07-19 20:48] LABS: Partial Thromboplastin Time 61.4 SECONDS (22.3-36.8); Prothrombin Time 80.8 Seconds (11.1-14.7)
[2022-07-19 21:05] LABS: INR 10.6
[2022-07-19 21:10] LABS: Appearance Urine Clear (Clear); Bilirubin Urine Negative (Negative); Blood Urine 3+ (Negative); Color Urine Yellow (Yellow); Glucose Urine UA Negative (Negative); Ketones Urine Negative (Negative); Leukocyte Esterase Ur Trace LEU/UL (Negative); Nitrate Urine Positive (Negative); Protein Urine 2+ mg/dL (Negative); Urobilinogen Urine 0.2 mg/dL (<2.0); pH Urine 5.5 (5.0-9.0)
[2022-07-19 21:22] LABS: Bacteria Urine Trace /hpf; Mucus Urine Rare /lpf; RBC Urine >75 /hpf (0-2); WBC Urine 51-75 /hpf
[2022-07-19 21:23] LABS: Add Urine Microscopic? YES
[2022-07-19 22:02] VITALS: BP 168/76; PULSE 89; RESP 14; TEMP 36.6; O2SAT 98
--- NOTE | 2022-07-19 22:02 | PC.NURSE ---
pt. number Jacob Lopez [phone]
[2022-07-19 22:18] LABS: Lactic Acid Reflex 1.4 mmol/L (0.7-2.0)
--- NOTE | 2022-07-19 22:41 | PM.IMHP ---
H&P: HPI History of Present Illness Date/Time: 07/19/22 21:50 Chief Complaint: Progressive weakness Narrative: 82-year-old female with a past medical history of chronic atrial fibrillation on chronic anticoagulation with Coumadin, combined systolic and diastolic heart failure, mild pulmonary hypertension and GERD who presented to the ER with complaints of generalized weakness, decreased appetite and nausea. She reports that she had a history of chronic the atria and had a colonoscopy (per records this occurred May 2022) pathology demonstrated lymphocytic colitis. She was given a course of Flagyl which actually resolved her symptoms. She followed up with GI last month and was started on budesonide. Since that time her stools have been soft mushy but only once per day. She denies any significant abdominal pain. However over the last 2 months she has been having sensation of early satiety after only eating 2 or 3 bites of food. She has become so fatigued that she cannot go from her upper for down to her basement to do laundry with resting. She denies any dyspnea on exertion. She denies any chest pain. She has not had any fevers or chills. On exam the patient has no abdominal tenderness even to deep palpation. She does have intermittent dysuria and intermittent urinary frequency on and off for the last month. She has noticed that her urine has been darker for the last 2 months. She denies noticing any scleral icterus but does have subtle scleral icterus on exam. She states due to her decreased appetite her weakness has gotten so bad that she can barely get around. She does still smoke but denies any alcohol use. In the ER labs demonstrated leukocytosis with a white count of 28.1 hemoglobin 15.9, 83% neutrophils, PT 80.8 INR 10.6 PTT 61.4, BUN 67 creatinine 2.2. Bilirubin was elevated at 1.1, AST 221 ALT 374 and alk phos 795 albumin was 3.2 and lipase was 4438. UA demonstrated greater than 75 wbc's and greater than 75 RBCs and positive nitrates. CT of the abdomen pelvis demonstrated bilateral nonobstructing nephrolithiasis, mild asymmetric left perinephric stranding correlate for possible recently passed left renal stone, no stoney hydronephrosis no ureteral stone, mild bibasilar chronic interstitial pulmonary disease. The patient received 2 L in fluid bolus and started on Zosyn. She denies any dysphagia. She is alert oriented x4 and is a relatively good historian but states that she has been having some issues with her short-term memory gradually over the last year. She states that she cannot remember her meds. Review of Systems Review of Systems: 12 systems were reviewed with pertinent positives and negatives per HPI. Except as documented in the HPI, all other systems were reviewed and are negative. 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 Echocardiogram 12/2019: Mild hypokinesis of the left ventricular apical cap, EF 48%, elevated left ventricular end-diastolic pressure, E/E elevated, moderately enlarged left atrium, [id number] mitral valve regurgitation, mild to moderate tricuspid valve regurgitation, mild pulmonary hypertension GERD (gastroesophageal reflux disease) Hyperlipidemia Hypertension Ischemia of right upper extremity (12/2019) Due to thrombotic event Kidney stones Lymphocytic colitis Rheumatoid arthritis TIA (transient ischemic attack) Surgical History Surgical History (Updated 07/20/22 @ 06:32 by Tanisha Dumont DO) History of bilateral carpal tunnel release in the History of bilateral cataract extraction With lens placement in left eye History of dilation and curettage 1998 History of lobectomy of lung right middle lobe 12/2013 History of tubal ligation 1974 Family History Family H
[2022-07-19] MEDS: PHYTONADIONE ADULT INJ 10 MG in DEXTROSE 5% IN WATER 50 ML 100 MG IVPB (22:54)
[2022-07-19 23:15] VITALS: BP 172/90; PULSE 80; RESP 20; TEMP 36.4; O2SAT 99; BMI 20.7
[2022-07-20] MEDS: SODIUM CHLORIDE 0.9% IV 1,000 ML 100 ML IV CONT ×3 (01:00→20:39)
--- NOTE | 2022-07-20 01:53 | PC.NURSE ---
Patient does not know home meds and all the dosages. Patient states she uses both [facility] and [facility]. Patient states that has the list in his wallet.
[2022-07-20 06:00] VITALS: BP 163/111; PULSE 94; RESP 18; TEMP 36.4; O2SAT 99
--- NOTE | 2022-07-20 06:55 | PC.NURSE ---
MD aware of elevated BP and NPO status. Hospitialist working on med req and prn BP meds for hypertension. Patient otherwise stable and unchanged.
[2022-07-20 08:15] LABS: Eosinophils Absolute Auto 0.1 K/mm3 (0-0.3); Eosinophils Percent Auto 0.3 % (0-4.4); Hematocrit 39.1 % (37.0-47.0); Hemoglobin 13.2 g/dL (12.0-15.0); Lymphocytes Absolute Auto 1.93 K/mm3 (0.9-3.2); Lymphocytes Percent Auto 6.8 % (18.3-44.2); Mean Corpuscular HGB Conc 33.8 g/dl (32-36); Mean Corpuscular Hemoglobin 30.6 pg (26-34); Mean Corpuscular Volume 90.5 fl (80-100); Mean Platelet Volume 10.4 fl (7.4-10.4); Monocytes Percent Auto 3.3 % (2.6-8.5); Neutrophils Absolute Auto 23.6 K/mm3 (1.3-6.7); Neutrophils Percent Auto 82.6 % (45.5-73.1); Platelet Count Result 164 k/mm3 (150-375); Red Blood Count 4.32 M/mm3 (4.2-5.4); Red Cell Distribution Width 14.3 % (11.5-14.5); White Blood Count 28.5 K/mm3 (4.5-10.0)
[2022-07-20 08:23] LABS: Alanine Aminotransferase 235 U/L (6-35); Albumin Level 2.6 g/dL (3.5-5.1); Alkaline Phosphatase 524 U/L (38-126); Anion Gap 5 mmol/L (8-16); Aspartate Amino Transferase 105 U/L (14-36); Bilirubin,Total 1.7 mg/dL (0.2-1.3); Blood Urea Nitrogen 51 mg/dL (7-17); Carbon Dioxide 17 mmol/L (22-30); Chloride 110 mmol/L (98-107); Estimated CRCL calculation 24 ml/min; Estimated Glomerular Filt Rate 31; Glucose 83 mg/dL (65-110); Potassium 4.9 mmol/L (3.4-5.0); Sodium 132 mmol/L (137-145)
[2022-07-20 08:34] LABS: Lipase 3273 U/L (23-300)
[2022-07-20] MEDS: hydrALAZINE HCL 20 MG/ML VIAL 10 MG IV PUSH ×2 (09:29→14:13)
[2022-07-20 14:00] VITALS: BP 171/95; PULSE 97; RESP 20; TEMP 36.7; O2SAT 98
--- NOTE | 2022-07-20 14:35 | PM.IMPN ---
Progress Note: A&P Assessment and Plan (1) Sepsis: Code(s): A41.9 - Sepsis, unspecified organism Status: Acute Assessment and Plan: Patient has sepsis present on admission with leukocytosis, elevated LFTs and elevated lipase. Source felt to be UTI with left pyelonephritis. Lactic acid normal. No tachycardia. Started on Zosyn. She is clinical stable. Continue current IV abx and narrow abx as cultures allow. (2) Acute kidney injury: Code(s): N17.9 - Acute kidney failure, unspecified Status: Acute Assessment and Plan: Patient has normal baseline renal function. Cr 2.2 on admission. KAMLESH related to dehydration and sepsis due to acute pyelonephritis. Started on IV fluid hydration and repeat Cr better. Follow. (3) Urinary tract infection: Qualifiers: Urinary tract infection type: acute pyelonephritis Qualified Code(s): N10 - Acute pyelonephritis Code(s): N39.0 - Urinary tract infection, site not specified Status: Acute Assessment and Plan: UA noted. CT of the abdomen demonstrates left perinephric stranding c/w acute left pyelonephritis. The patient may have recently passed a stone. However given the patient's clinical report pyelonephritis more likely. Continue antibiotic therapy with Zosyn. Follow up on BCx and UCx. (4) Supratherapeutic INR: Code(s): R79.1 - Abnormal coagulation profile Status: Acute Assessment and Plan: Patient on Couamdin for cAFib. She was found to have a supratherapeutic INR due to sepsis from pyelonephritis. Coumadin has been placed on hold. Patient did receive a dose of vitamin K in the ER. She has no evidence of acute bleeding. Will monitor hemoglobin. Serial INR. (5) Elevated LFTs: Code(s): R79.89 - Other specified abnormal findings of blood chemistry Status: Acute Assessment and Plan: Patient with transaminitis and elevated lipase without CT evidence of acute pancreatitis or pain. CT of the abdomen pelvis did not demonstrate any overt hepatobiliary mass. RUQ ultrasound showing no significant abnormalities. Patient was NPO and has IV fluids running. LFTs and lipase elevation felt related to sepsis and are trending down. Will start diet. Trend values (6) Elevated lipase: Code(s): R74.8 - Abnormal levels of other serum enzymes Status: Acute Assessment and Plan: As above (7) Dehydration: Code(s): E86.0 - Dehydration Status: Acute Assessment and Plan: As above (8) Hypertension: Qualifiers: Hypertension type: primary hypertension Qualified Code(s): I10 - Essential (primary) hypertension Code(s): I10 - Essential (primary) hypertension Status: Acute Assessment and Plan: Patient's blood pressure was reviewed on 2/5 Blood pressure poorly controlled. Will review home medications. (9) Memory changes: Code(s): R41.3 - Other amnesia Status: Acute Assessment and Plan: The patient reports gradual mild memory changes over the last year. She is likely developing some early cognitive impairment. Patient would benefit from mini-mental status exam after acute illness has resolved. Patient is actually a really good historian despite her reports of memory loss. (10) Chronic atrial fibrillation: Code(s): I48.20 - Chronic atrial fibrillation, unspecified Status: Acute Assessment and Plan: Patient with chronic atrial fibrillation. She is not on rate-controlling agents. INR is supratherapeutic as mentioned above. Subjective Date/time seen: 07/20/22 14:35 Interval history: 82yo female with cAFib, CHF and HTN here for weakness and nausea. Patient denies any chest pain or shortness of breath. She does have dyspnea on exertion when she is walking to the bathroom. No abdominal pain. Slight cough that is nonproductive. Exam Narrative: AF 97.5 163
[2022-07-20 16:05] LABS: INR 1.7; Prothrombin Time 19.1 Seconds (11.1-14.7)
[2022-07-20] MEDS: amLODIPine BESYLATE 5 MG TABLET PO (16:07)
[2022-07-20] MEDS: LIDOCAINE 5% PATCH 1 PATCH TRANSDERM (17:44)
[2022-07-20] MEDS: WARFARIN (*PBKC) 3 MG TABLET PO (18:42)
[2022-07-20 22:00] VITALS: BP 165/95; PULSE 104; RESP 14; TEMP 36.1; O2SAT 97
[2022-07-21 06:00] VITALS: BP 162/92; PULSE 96; RESP 18; TEMP 36.1; O2SAT 98
[2022-07-21] MEDS: SODIUM CHLORIDE 0.9% IV 1,000 ML 100 ML IV CONT (06:14)
[2022-07-21 06:33] LABS: Eosinophils Absolute Auto 0.1 K/mm3 (0-0.3); Eosinophils Percent Auto 0.4 % (0-4.4); Hematocrit 37.1 % (37.0-47.0); Hemoglobin 12.6 g/dL (12.0-15.0); Immature Granulocyte Absolute 1.69 K/mm3 (0.00-0.031); Immature Granulocyte Percent A 6.9 % (0-0.5); Lymphocytes Absolute Auto 2.28 K/mm3 (0.9-3.2); Lymphocytes Percent Auto 9.3 % (18.3-44.2); Mean Corpuscular Hemoglobin 30.1 pg (26-34); Mean Corpuscular Volume 88.8 fl (80-100); Mean Platelet Volume 10.3 fl (7.4-10.4); Monocytes Percent Auto 3.9 % (2.6-8.5); Neutrophils Absolute Auto 19.5 K/mm3 (1.3-6.7); Neutrophils Percent Auto 79.5 % (45.5-73.1); Platelet Count Result 157 k/mm3 (150-375); Red Blood Count 4.18 M/mm3 (4.2-5.4); Red Cell Distribution Width 14.4 % (11.5-14.5); White Blood Count 24.6 K/mm3 (4.5-10.0)
[2022-07-21 06:34] LABS: INR 1.6; Prothrombin Time 18.2 Seconds (11.1-14.7)
[2022-07-21 06:45] LABS: Alanine Aminotransferase 180 U/L (6-35); Albumin Level 2.6 g/dL (3.5-5.1); Alkaline Phosphatase 461 U/L (38-126); Aspartate Amino Transferase 97 U/L (14-36); Blood Urea Nitrogen 32 mg/dL (7-17); Calcium 7.8 mg/dL (8.4-10.2); Carbon Dioxide 19 mmol/L (22-30); Chloride 107 mmol/L (98-107); Estimated CRCL calculation 29 ml/min; Estimated Glomerular Filt Rate 39; Glucose 69 mg/dL (65-110)
[2022-07-21 06:46] LABS: Anion Gap 4 mmol/L (8-16); Bilirubin,Total 1.6 mg/dL (0.2-1.3); Sodium 130 mmol/L (137-145)
[2022-07-21 06:56] LABS: Lipase 2267 U/L (23-300)
[2022-07-21] MEDS: PANTOPRAZOLE 40 MG TABLET PO (09:13)
[2022-07-21] MEDS: LIDOCAINE 5% PATCH 1 PATCH TRANSDERM (09:13)
[2022-07-21] MEDS: amLODIPine BESYLATE 5 MG TABLET PO (09:13)
--- NOTE | 2022-07-21 09:23 | PM.IMPN ---
Progress Note: A&P Assessment and Plan (1) Sepsis: Code(s): A41.9 - Sepsis, unspecified organism Status: Acute Assessment and Plan: Patient had sepsis present on admission with leukocytosis, elevated LFTs and elevated lipase. Source felt to be UTI with left pyelonephritis. Lactic acid normal. No tachycardia. Started on Zosyn. She is clinical stable. BCx NGTD. UCx pending. WBC was up to 28K but now slowly trending down. Continue current IV abx and narrow abx as cultures allow. Follow WBC (2) Acute kidney injury: Code(s): N17.9 - Acute kidney failure, unspecified Status: Acute Assessment and Plan: Patient has normal baseline renal function. Cr 2.2 on admission. KAMLESH related to dehydration and sepsis due to acute pyelonephritis. Started on IV fluid hydration and repeat Cr better. Metabolic nongap acidosis noted and should improve as renal function improves. Stop IV fluids since eating okay. Follow. (3) Urinary tract infection: Qualifiers: Urinary tract infection type: acute pyelonephritis Qualified Code(s): N10 - Acute pyelonephritis Code(s): N39.0 - Urinary tract infection, site not specified Status: Acute Assessment and Plan: UA noted. CT of the abdomen demonstrates left perinephric stranding c/w acute left pyelonephritis. The patient may have recently passed a stone. However given the patient's clinical report pyelonephritis more likely. Continue antibiotic therapy with Zosyn. Follow up on BCx and UCx. (4) Supratherapeutic INR: Code(s): R79.1 - Abnormal coagulation profile Status: Acute Assessment and Plan: Patient on Couamdin for cAFib. She was found to have a supratherapeutic INR due to sepsis from pyelonephritis. Coumadin was placed on hold. Patient did receive a dose of vitamin K in the ER. She has no evidence of acute bleeding. INR now normal. She is not on Eliquis due to cost. Will have care coordination investigate cost for the patient. Continue serial INR if she remains on Coumadin. (5) Elevated LFTs: Code(s): R79.89 - Other specified abnormal findings of blood chemistry Status: Acute Assessment and Plan: Patient with transaminitis and elevated lipase without CT evidence of acute pancreatitis or pain. CT of the abdomen pelvis did not demonstrate any overt hepatobiliary mass. RUQ ultrasound showing no significant abnormalities. Patient was NPO and has IV fluids running. LFTs and lipase elevation felt related to sepsis and are trending down. Will start diet. Trend values (6) Elevated lipase: Code(s): R74.8 - Abnormal levels of other serum enzymes Status: Acute Assessment and Plan: As above (7) Dehydration: Code(s): E86.0 - Dehydration Status: Acute Assessment and Plan: As above (8) Hypertension: Qualifiers: Hypertension type: primary hypertension Qualified Code(s): I10 - Essential (primary) hypertension Code(s): I10 - Essential (primary) hypertension Status: Acute Assessment and Plan: Patient's blood pressure was reviewed on 07/21 Blood pressure better controlled. Home Lisinopril on hold. Norvasc added. Continue the same for now. (9) Memory changes: Code(s): R41.3 - Other amnesia Status: Acute Assessment and Plan: The patient reports gradual mild memory changes over the last year. She is likely developing some early cognitive impairment. Patient is actually a really good historian despite her reports of memory loss. (10) Chronic atrial fibrillation: Code(s): I48.20 - Chronic atrial fibrillation, unspecified Status: Acute Assessment and Plan: Patient with chronic atrial fibrillation. She is not on rate-controlling agents. INR is supratherapeutic as mentioned above. Subjective Date/time seen: 07/21/22 09:23 Interval history: 82yo female with cAFib, CHF an
[2022-07-21 12:46] VITALS: BMI 20.7
[2022-07-21 13:39] VITALS: BP 150/72; PULSE 112; RESP 18; TEMP 36.1; O2SAT 96
[2022-07-21] MEDS: APIXABAN 2.5 MG TABLET PO (20:54)
[2022-07-21 22:00] VITALS: BP 170/89; PULSE 84; RESP 14; TEMP 36.6; O2SAT 98
[2022-07-22 06:00] VITALS: BP 145/95; PULSE 100; RESP 16; TEMP 36.3; O2SAT 98
[2022-07-22 06:32] LABS: Basophils Absolute Auto 0.1 K/mm3 (0.0-0.1); Basophils Percent Auto 0.6 % (0.2-1.2); Eosinophils Absolute Auto 0.1 K/mm3 (0-0.3); Eosinophils Percent Auto 0.6 % (0-4.4); Hematocrit 35.2 % (37.0-47.0); Hemoglobin 11.9 g/dL (12.0-15.0); Immature Granulocyte Absolute 1.02 K/mm3 (0.00-0.031); Immature Granulocyte Percent A 5.1 % (0-0.5); Lymphocytes Absolute Auto 2.19 K/mm3 (0.9-3.2); Lymphocytes Percent Auto 10.9 % (18.3-44.2); Mean Corpuscular HGB Conc 33.8 g/dl (32-36); Mean Corpuscular Hemoglobin 30.4 pg (26-34); Mean Corpuscular Volume 89.8 fl (80-100); Mean Platelet Volume 10.1 fl (7.4-10.4); Monocytes Absolute Auto 0.9 K/mm3 (0.1-0.6); Monocytes Percent Auto 4.6 % (2.6-8.5); Neutrophils Absolute Auto 15.7 K/mm3 (1.3-6.7); Neutrophils Percent Auto 78.2 % (45.5-73.1); Platelet Count Result 138 k/mm3 (150-375); Red Blood Count 3.92 M/mm3 (4.2-5.4); Red Cell Distribution Width 14.4 % (11.5-14.5); White Blood Count 20.1 K/mm3 (4.5-10.0)
[2022-07-22 06:42] LABS: INR 2.4; Prothrombin Time 25.1 Seconds (11.1-14.7)
[2022-07-22 06:46] LABS: Alanine Aminotransferase 130 U/L (6-35); Albumin Level 2.5 g/dL (3.5-5.1); Alkaline Phosphatase 372 U/L (38-126); Anion Gap 4 mmol/L (8-16); Aspartate Amino Transferase 68 U/L (14-36); Bilirubin,Total 1.5 mg/dL (0.2-1.3); Blood Urea Nitrogen 22 mg/dL (7-17); Calcium 7.7 mg/dL (8.4-10.2); Carbon Dioxide 22 mmol/L (22-30); Chloride 106 mmol/L (98-107); Estimated CRCL calculation 37 ml/min; Estimated Glomerular Filt Rate 53; Glucose 92 mg/dL (65-110); Lipase 1828 U/L (23-300); Potassium 3.4 mmol/L (3.4-5.0); Sodium 132 mmol/L (137-145)
[2022-07-22] MEDS: LIDOCAINE 5% PATCH 1 PATCH TRANSDERM (09:10)
[2022-07-22] MEDS: amLODIPine BESYLATE 5 MG TABLET PO (09:10)
[2022-07-22] MEDS: PANTOPRAZOLE 40 MG TABLET PO (09:10)
[2022-07-22] MEDS: APIXABAN 2.5 MG TABLET PO ×2 (09:10→20:37)
--- NOTE | 2022-07-22 12:58 | PC.NURSE ---
Pt has had family at bedside today. Pt is able to ambulate with a cane. Pt has no complaints of pain and expresses no needs at this time. Pt is A&O 4 and has participated and contributed in plan of care for the shift. Will continue to monitor pt.
[2022-07-22 14:00] VITALS: BP 128/69; PULSE 97; RESP 20; TEMP 36.1; O2SAT 97
--- NOTE | 2022-07-22 15:19 | P.PNIM_ITS ---
Progress Note: A&P Assessment and Plan (1) Sepsis: Code(s): A41.9 - Sepsis, unspecified organism Status: Acute Assessment and Plan: Patient had sepsis present on admission with leukocytosis, elevated LFTs and e levated lipase. Source felt to be UTI with left pyelonephritis. Lactic acid normal. No tachycardia. Started was started on Zosyn. She is clinical stable. BCx NGTD. UCx growing flood-sensitive EColi. WBC was up to 28K but now slowly trending down. Continue current IV abx and narrow abx to Rocephin. Follow WBC. Home in 1-2 days (2) Acute kidney injury: Code(s): N17.9 - Acute kidney failure, unspecified Status: Acute Assessment and Plan: Patient has normal baseline renal function. Cr 2.2 on admission. KAMLESH related to dehydration and sepsis due to acute pyelonephritis. Started on IV fluid hydration and repeat Cr normal now. Metabolic nongap acidosis has resolved. IV fluids stopped. Resolved. (3) Urinary tract infection: Qualifiers: Urinary tract infection type: acute pyelonephritis Qualified Code(s): N10 - Acute pyelonephritis Code(s): N39.0 - Urinary tract infection, site not specified Status: Acute Assessment and Plan: UA noted. CT of the abdomen demonstrates left perinephric stranding c/w acute left pyelonephritis. The patient may have recently passed a stone. However given the patient's clinical report, pyelonephritis more likely. BCx NGTD. UC growing pansensitive EColi. Continue IV antibiotic therapy. (4) Supratherapeutic INR: Code(s): R79.1 - Abnormal coagulation profile Status: Acute Assessment and Plan: Patient was on Couamdin for cAFib. She was found to have a supratherapeutic INR due to sepsis from pyelonephritis. Coumadin was placed on hold. Patient did receive a dose of vitamin K in the ER. She has no evidence of acute bleeding. INR improved. She was not on Eliquis due to cost but care coordination priced Eliquis and patient can now afford this. Eliquis started. (5) Elevated LFTs: Code(s): R79.89 - Other specified abnormal findings of blood chemistry Status: Acute Assessment and Plan: Patient with transaminitis and elevated lipase without CT evidence of acute pancreatitis or pain. CT of the abdomen pelvis did not demonstrate any overt hepatobiliary mass or other concerning findings. RUQ ultrasound showing no significant abnormalities. No GS so do not feel she passed a stone. Patient was NPO and on IV fluids. LFTs and lipase elevation felt related to sepsis and are trending down slowly. Since values are trending down and other imaging without concerning findings, would hold off on MRCP for now. Diet started and she is tolerating well without n/v. Continue to trend. (6) Elevated lipase: Code(s): R74.8 - Abnormal levels of other serum enzymes Status: Acute Assessment and Plan: As above (7) Dehydration: Code(s): E86.0 - Dehydration Status: Acute Assessment and Plan: As above (8) Hypertension: Qualifiers: Hypertension type: primary hypertension Qualified Code(s): I10 - Essential (primary) hypertension Code(s): I10 - Essential (primary) hypertension Status: Acute Assessment and Plan: Patient's blood pressure was reviewed on 07/22 Blood pressure still elevated but better controlled overall. Home Lisinopril on hold. Norvasc added. Continue the same for now. (9) Memory changes: Code(s): R41.3 - Other amnesia Status: Acute
[2022-07-22] MEDS: cefTRIAXone 2 GM in SODIUM CHLORIDE 0.9% IV 100 ML 200 ML IVPB (20:37)
[2022-07-22 22:00] VITALS: BP 142/82; PULSE 93; RESP 14; TEMP 36.3; O2SAT 99
[2022-07-23 06:00] VITALS: BP 147/77; PULSE 86; RESP 16; TEMP 36; O2SAT 98
[2022-07-23 06:10] LABS: Basophils Absolute Auto 0.1 K/mm3 (0.0-0.1); Basophils Percent Auto 0.4 % (0.2-1.2); Eosinophils Absolute Auto 0.2 K/mm3 (0-0.3); Eosinophils Percent Auto 1.1 % (0-4.4); Hematocrit 35.7 % (37.0-47.0); Hemoglobin 11.9 g/dL (12.0-15.0); Immature Granulocyte Absolute 0.75 K/mm3 (0.00-0.031); Immature Granulocyte Percent A 4.6 % (0-0.5); Lymphocytes Absolute Auto 2.32 K/mm3 (0.9-3.2); Lymphocytes Percent Auto 14.2 % (18.3-44.2); Mean Corpuscular HGB Conc 33.3 g/dl (32-36); Mean Corpuscular Hemoglobin 30.7 pg (26-34); Mean Platelet Volume 10.4 fl (7.4-10.4); Monocytes Absolute Auto 0.7 K/mm3 (0.1-0.6); Monocytes Percent Auto 4.4 % (2.6-8.5); Neutrophils Absolute Auto 12.4 K/mm3 (1.3-6.7); Neutrophils Percent Auto 75.3 % (45.5-73.1); Platelet Count Result 150 k/mm3 (150-375); Red Blood Count 3.88 M/mm3 (4.2-5.4); Red Cell Distribution Width 14.2 % (11.5-14.5); White Blood Count 16.4 K/mm3 (4.5-10.0)
[2022-07-23 06:20] LABS: Alanine Aminotransferase 104 U/L (6-35); Albumin Level 2.5 g/dL (3.5-5.1); Alkaline Phosphatase 317 U/L (38-126); Anion Gap 6 mmol/L (8-16); Aspartate Amino Transferase 53 U/L (14-36); Bilirubin,Total 1.1 mg/dL (0.2-1.3); Blood Urea Nitrogen 20 mg/dL (7-17); Calcium 7.5 mg/dL (8.4-10.2); Carbon Dioxide 24 mmol/L (22-30); Chloride 108 mmol/L (98-107); Estimated CRCL calculation 37 ml/min; Estimated Glomerular Filt Rate 53; Glucose 85 mg/dL (65-110); Lipase 982 U/L (23-300); Potassium 3.3 mmol/L (3.4-5.0); Sodium 138 mmol/L (137-145)
--- NOTE | 2022-07-23 08:39 | PM.DS ---
DS: Admitting Diagnosis Discharge Date July 23, 2022 Admitting Diagnosis Weakness DS: Discharge Diagnosis Discharge Diagnosis (1) Sepsis: Code(s): A41.9 - Sepsis, unspecified organism Status: Inactive Assessment and Plan: Patient had sepsis present on admission with leukocytosis, elevated LFTs and elevated lipase. Source felt to be UTI with left pyelonephritis. Lactic acid normal. No tachycardia. Started was started on Zosyn. She is clinical stable. BCx NGTD. UCx growing flood-sensitive EColi. WBC was up to 28K but now slowly trending down. Continue current IV abx and narrow abx to Rocephin. Follow WBC. Home in 1-2 days (2) Acute kidney injury: Code(s): N17.9 - Acute kidney failure, unspecified Status: Inactive Assessment and Plan: Patient has normal baseline renal function. Cr 2.2 on admission. KAMLESH related to dehydration and sepsis due to acute pyelonephritis. Started on IV fluid hydration and repeat Cr normal now. Metabolic nongap acidosis has resolved. IV fluids stopped. Resolved. (3) Urinary tract infection: Qualifiers: Urinary tract infection type: acute pyelonephritis Qualified Code(s): N10 - Acute pyelonephritis Code(s): N39.0 - Urinary tract infection, site not specified Status: Inactive Assessment and Plan: UA noted. CT of the abdomen demonstrates left perinephric stranding c/w acute left pyelonephritis. The patient may have recently passed a stone. However given the patient's clinical report, pyelonephritis more likely. BCx NGTD. UC growing pansensitive EColi. Continue IV antibiotic therapy. (4) Supratherapeutic INR: Code(s): R79.1 - Abnormal coagulation profile Status: Inactive Assessment and Plan: Patient was on Couamdin for cAFib. She was found to have a supratherapeutic INR due to sepsis from pyelonephritis. Coumadin was placed on hold. Patient did receive a dose of vitamin K in the ER. She has no evidence of acute bleeding. INR improved. She was not on Eliquis due to cost but care coordination priced Eliquis and patient can now afford this. Eliquis started. (5) Elevated LFTs: Code(s): R79.89 - Other specified abnormal findings of blood chemistry Status: Acute Assessment and Plan: Patient with transaminitis and elevated lipase without CT evidence of acute pancreatitis or pain. CT of the abdomen pelvis did not demonstrate any overt hepatobiliary mass or other concerning findings. RUQ ultrasound showing no significant abnormalities. No GS so do not feel she passed a stone. Patient was NPO and on IV fluids. LFTs and lipase elevation felt related to sepsis and are trending down slowly. Since values are trending down and other imaging without concerning findings, would hold off on MRCP for now. Diet started and she is tolerating well without n/v. Continue to trend. (6) Elevated lipase: Code(s): R74.8 - Abnormal levels of other serum enzymes Status: Acute Assessment and Plan: As above (7) Dehydration: Code(s): E86.0 - Dehydration Status: Inactive Assessment and Plan: As above (8) Hypertension: Qualifiers: Hypertension type: primary hypertension Qualified Code(s): I10 - Essential (primary) hypertension Code(s): I10 - Essential (primary) hypertension Status: Acute Assessment and Plan: Patient's blood pressure was reviewed on 07/22 Blood pressure still elevated but better controlled overall. Home Lisinopril on hold. Norvasc added. Continue the same for now. (9) Memory changes: Code(s): R41.3 - Other amnesia Status: Acute Assessment and Plan: The patient reports gradual mild memory changes over the last year. She is likely developing some early cognitive impairment. Patient is actually a really good historian despite her reports of memory loss. (10) Chronic atrial fibrillation:
[2022-07-23] MEDS: LIDOCAINE 5% PATCH 1 PATCH TRANSDERM (09:33)
[2022-07-23] MEDS: PANTOPRAZOLE 40 MG TABLET PO (09:33)
[2022-07-23] MEDS: amLODIPine BESYLATE 5 MG TABLET PO (09:34)
[2022-07-23] MEDS: APIXABAN 2.5 MG TABLET PO (09:34)
[2022-07-23] MEDS: POTASSIUM CHLORIDE 20 MEQ TABLET 40 MEQ PO (09:37)
[2022-07-23 14:00] VITALS: BP 130/64; PULSE 86; RESP 16; TEMP 36.6; O2SAT 100
--- NOTE | 2022-07-23 20:01 | PC.NURSE ---
Pt has been compliant with care all day. Pt discharged home with family. Pt participated and contributed in care throughout stay. Pt is A&O 4. Pt has no complaints and expresses no needs at time of care. Pt discharged home with family. Pt take out to vehicle in a wheel chair. Pt monitored for changes in status while here.
[2022-07-28 15:11] LABS: Gliadin AB, IgG <1.0 U/mL (<15.0); TTG IGA AB 9.5 U/mL (<15.0)
== END 2022-07-23 17:50 | disposition home or self-care (01) | DRG 872 ==
LOC: ANHED 21:32 → ANH3MEDSUR 21:58
PROVIDERS: Internal Medicine; Physician Assistant; Admitting Provider Internal Medicine; Emergency Provider Emergency Medicine; PCP Family Medicine; Visit Provider Student in an Organized Health Care Education/Training Program
DX: A41.9 Sepsis, unspecified organism (principal); N10 Acute pyelonephritis; N17.9 Acute kidney failure, unspecified; I48.20 Chronic atrial fibrillation, unspecified; I13.0 Hypertensive heart and chronic kidney disease with heart failure and stage 1 through stage 4 chronic kidney disease, or unspecified chronic kidney disease; I50.42 Chronic combined systolic (congestive) and diastolic (congestive) heart failure; B96.20 Unspecified Escherichia coli [E. coli] as the cause of diseases classified elsewhere; Z20.822 Contact with and (suspected) exposure to COVID-19; E86.0 Dehydration; R41.3 Other amnesia; D72.829 Elevated white blood cell count, unspecified; K52.832 Lymphocytic colitis; K21.9 Gastro-esophageal reflux disease without esophagitis; E78.5 Hyperlipidemia, unspecified; M06.9 Rheumatoid arthritis, unspecified; F17.210 Nicotine dependence, cigarettes, uncomplicated; Z79.01 Long term (current) use of anticoagulants; Z87.442 Personal history of urinary calculi; Z86.73 Personal history of transient ischemic attack (TIA), and cerebral infarction without residual deficits; Z98.42 Cataract extraction status, left eye; Z98.41 Cataract extraction status, right eye; Z96.1 Presence of intraocular lens
CPT/HCPCS: 36415; 51701; 71046; 74176; 76705; 80053; 81001; 83516; 83605; 83690; 84443; 84484; 85025; 85610; 85730; 86255; 87040; 87077; 87086; 87186; 87636; 93005; 96361; 96365; 96366; 96375; 96376; 99285; A9270; G0378; J0360; J0696; J2543; J3430; J7030

== ENCOUNTER 2022-08-09 19:10 | Inpatient (IN) | payer MEDICARE, SELFPAY ==
[2022-08-09] VITALS (13 sets, daily range): BP systolic 121–156; BP diastolic 52–90; PULSE 82–121; RESP 18–24; TEMP 36.5; O2SAT 90–97; BMI 23.1
--- NOTE | ~2022-08-09 | CT_ITS ---
EXAMINATION: CT brain wo con DATE: 08/09/2022 20:10 INDICATION: syncope, fall, abbrasion to L side head . TECHNIQUE: Computed tomography (CT) of the head was performed without intravenous contrast. The mA wa s adjusted according to patient size. Iterative reconstruction technique was employed. The dose-lengt h product was 681.00 mGy-cm. COMPARISON: 01/09/2020. FINDINGS: No acute intracranial hemorrhage or extra-axial fluid collection. No hydrocephalus, mass, or herniation. No acute ischemic infarct. Unremarkable dural venous sinus attenuation. No acute osseous abnormality. Mucosal thickening and aerated secretions in the inferior frontal, anterior ethmoid, and left maxilla ry sinuses. Bilateral maxillary retention cysts or polyps. aerated spaces are clear. Moderate atrophy and chronic white matter change. Atherosclerotic intracranial calcification. Small o ld right basal ganglia and pontine lacunar infarcts. Bilateral lens replacements. IMPRESSION: No acute intracranial process. Reviewed, dictated and finalized at location K. ATRIC SOCIAL WORKER
--- NOTE | ~2022-08-09 | XR_ITS ---
EXAMINATION: XR chest 1V portable Exam Date/Time: 08/09/2022 19:40 HARDWOOD FINISHER HISTORY: syncope, weakness Comparison: 07/19/2022. RESULT: Lines, tubes, and devices: Suture lines over the right hilum. Lungs and pleura: Mild diffuse reticular opacities, slightly increased. Cardiomediastinal silhouette: Stable. Other: No acute osseous or upper abdominal finding. IMPRESSION: Pulmonary opacities may represent mild interstitial edema, overlying chronic senescent changes. Reviewed, dictated and finalized at location K. WOOD FINISHER IMPRESSION: Pulmonary opacities may represent mild interstitial edema, overlying chronic se nescent changes.
--- NOTE | ~2022-08-09 | XR_ITS ---
EXAMINATION: XR lumbar spine 2-3V DATE: 08/13/2022 19:51 INDICATION: Low back pain TECHNIQUE: Anteroposterior and lateral views of the lumbar spine, and cone-down lateral view of the l umbosacral junction were obtained. COMPARISON: 11/18/2021 FINDINGS: There is a compression fracture at L2 with interval worsening since the comparison examinat ion. No definite acute fracture is identified. There is severe loss of intervertebral disc space heig ht at L4-5 and moderate loss of intervertebral disc space height at L5-S1. Severe facet joint osteoar thritis is noted in the lower lumbar spine. IMPRESSION: 1. L2 compression fracture with interval worsening since the comparison examination. No acute fractur e identified. 2. Moderate to severe lower lumbar spondylosis. Reviewed, dictated and finalized at location F. [employer] AND RESTAURANT ASSOCIATE IMPRESSION: 1. L2 compression fracture with interval worsening since the comparison examina tion. No acute fracture identified. 2. Moderate to severe lower lumbar spondylosis.
--- NOTE | ~2022-08-09 | CT_ITS ---
EXAMINATION: CT cervical spine wo con DATE: 08/09/2022 20:11 INDICATION: fall TECHNIQUE: Computed tomography (CT) of the cervical spine was performed without intravenous contrast. Automated exposure control and iterative reconstruction technique were employed. The dose-length pro duct was 159.30 mGy-cm. COMPARISON: None. FINDINGS: Vertebral Body Alignment: Intact. . Craniocervical and atlantoaxial alignment: Moderate degenerative change. Alignment intact. Osseous structures/fracture: No evidence of a lytic or blastic process in the visualized spine. No e vidence of acute fracture. . Cervical soft tissues: The paraspinal soft tissues planes are maintained. Biapical pleural scar. Smal l pleural blebs. Right apical pleural calcification. Degenerative changes: Degenerative changes, without severe neural foraminal or central canal narrowin g. IMPRESSION: No acute fracture or traumatic malalignment in the cervical spine. Reviewed, dictated and finalized at location K. [employer] C[employer] DIRECTOR
--- NOTE | 2022-08-09 19:40 | ECG_ITS ---
Measurements Intervals [place] Rate: 121 P: MS: 0 QRS: 14 QRSD: 89 T: 31 QT: 339 QTc: 481 Interpretive Statements ATRIAL FIBRILLATION WITH RAPID VENTRICULAR RESPONSE POSSIBLE ANTERIOR MYOCARDIAL INFARCTION , OLD ABNORMAL ECG COMPARED TO ECG 07/19/2022 18:41:03 NO SIGNIFICANT CHANGES Electronically Signed On 08-10-2022 8:04:37 [employer]IATION PROTECTION SPECIALIST by Gonzalez Ramirez M.D.
[2022-08-09] MEDS: SODIUM CHLORIDE 0.9% IV 1,000 ML 999 ML IV CONT ×2 (19:49→22:24)
[2022-08-09 20:36] LABS: Hematocrit 37.4 % (37.0-47.0); Hemoglobin 12.4 g/dL (12.0-15.0); Mean Corpuscular HGB Conc 33.2 g/dl (32-36); Mean Corpuscular Hemoglobin 30.5 pg (26-34); Mean Corpuscular Volume 91.9 fl (80-100); Mean Platelet Volume 9.8 fl (7.4-10.4); Platelet Count Result 333 k/mm3 (150-375); Red Blood Count 4.07 M/mm3 (4.2-5.4); Red Cell Distribution Width 13.6 % (11.5-14.5); White Blood Count 37.2 K/mm3 (4.5-10.0)
[2022-08-09 20:47] LABS: INR 1.6; Prothrombin Time 18.2 Seconds (11.1-14.7)
[2022-08-09 20:48] LABS: Partial Thromboplastin Time 35.4 SECONDS (22.3-36.8)
--- NOTE | 2022-08-09 20:55 | ED.GENADULT ---
HPI - General Adult General Chief complaint: Altered Mental Status Stated complaint: ams Time Seen by Provider: 08/09/22 19:33 History of Present Illness HPI narrative: Patient 82-year-old female who presents the emergency department with chief complaint of altered mental status. Patient was recently in the hospital for urinary tract infection and was discharged earlier this month the patient was discharged home the family has noticed a progressive decline this evening patient was sitting in the bathroom and the family heard a thud when they went to the room she was laying on the floor they noticed she appeared to be somewhat rigid. Upon arrival to the emergency department the patient is able to answer questions but is somewhat slow to respond is not complaining of any pain Related Data Home Medications Medication Instructions Recorded Confirmed potassium chloride 20 mEq 20 meq PO DAILY 01/09/20 08/04/22 tablet,extended release(part/cryst) simvastatin 40 mg tablet 40 mg PO DAILY 01/09/20 08/04/22 adalimumab 40 mg/0.8 mL See Rx Instructions subcut .COMPLEX 08/04/22 08/04/22 subcutaneous pen kit (Humira Pen) magnesium 250 mg tablet 250 mg PO DAILY 08/04/22 08/04/22 Allergies Allergy/AdvReac Type Severity Reaction Status Date / Time No Known Allergies Allergy Verified 08/04/22 13:11 Review of Systems Review of Systems: A 10 system review of systems was completed on the patient and is negative except for what is stated in the HPI. Nursing and ancillary documentation was reviewed. FOR[facility]LY [facility], [facility] Past Medical History Medical History Acute kidney injury Age-related osteoporosis without current pathological fracture Aortic ectasia, unspecified site Atherosclerosis of aorta Atrial fibrillation on chronic anticoagulation with Coumadin Cerebral ischemia Chronic hypokalemia Chronic obstructive pulmonary disease without exacerbation Combined systolic and diastolic congestive heart failure Echocardiogram 12/2019: Mild hypokinesis of the left ventricular apical cap, EF 48%, elevated left ventricular end-diastolic pressure, E/E elevated, moderately enlarged left atrium, [id number] mitral valve regurgitation, mild to moderate tricuspid valve regurgitation, mild pulmonary hypertension Critical ischemia of upper extremity Dehydration GERD (gastroesophageal reflux disease) Hyperlipidemia Hypertension Ischemia of right upper extremity (12/2019) Due to thrombotic event Kidney stones Lymphocytic colitis Nicotine dependence, cigarettes, 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 Protein-calorie malnutrition, mild 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 PVCs (premature ventricular contractions) Rheumatoid arthritis TIA (transient ischemic attack) Urinary tract infection Surgical History Surgical History History of bilateral carpal tunnel release in the History of bilateral cataract extraction With lens placement in left eye History of dilation and curettage 1998 History of lobectomy of lung right middle lobe 12/2013 History of tubal ligation 1974 Family History Family History Mother , in her 80s due to heart failure Hypertension CHF (congestive heart failure) Acute myocardial infarction Fallopian tube cancer, carcinoma Father Carcinoma of colon Social History Social History Social History: Primary care physician: Dr. Kj Langley Code status: DNR/DNI per patient request. Patient would be willing to have pressors or noninvasive ventilatory support. Surrogate decision maker: Smoking packs per day: 1 Smoking cigarettes per day: 20.0 Years smoked: 60 Smoking
[2022-08-09 20:57] LABS: Lactic Acid Reflex 3.5 mmol/L (0.7-2.0)
[2022-08-09 20:58] LABS: Alanine Aminotransferase 27 U/L (6-35); Albumin Level 3.4 g/dL (3.5-5.1); Alkaline Phosphatase 115 U/L (38-126); Anion Gap 11 mmol/L (8-16); Aspartate Amino Transferase 42 U/L (14-36); Bilirubin,Total 0.8 mg/dL (0.2-1.3); Blood Urea Nitrogen 19 mg/dL (7-17); Calcium 6.6 mg/dL (8.4-10.2); Carbon Dioxide 23 mmol/L (22-30); Chloride 102 mmol/L (98-107); Estimated Glomerular Filt Rate 60; Glucose 182 mg/dL (65-110); Magnesium 0.4 mg/dL (1.6-2.3); Potassium 2.4 mmol/L (3.4-5.0); Sodium 136 mmol/L (137-145)
[2022-08-09 21:00] LABS: CRP 1.3 mg/dL (<1.0)
[2022-08-09 21:08] LABS: Appearance Urine Turbid (Clear); Bacteria Urine 4+ /hpf; Bilirubin Urine Negative (Negative); Blood Urine 1+ (Negative); Color Urine Yellow (Yellow); Glucose Urine UA Negative (Negative); Ketones Urine Trace mg/dL (Negative); Leukocyte Esterase Ur 2+ LEU/UL (Negative); Need Manual Microscopic Reviewed; Nitrate Urine Positive (Negative); Non Pathogenic Casts >20; Protein Urine 2+ mg/dL (Negative); RBC Urine 0-2 /hpf (0-2); Specific Grav Ur 1.016 (1.001-1.035); Squamous Epithelial Cell Urine Few /hpf (Few); WBC Urine >100 /hpf; pH Urine 5.5 (5.0-9.0)
[2022-08-09 21:10] LABS: Add Urine Microscopic? YES
[2022-08-09 21:15] LABS: NT Pro B Type Natriuretic Pept 1500 pg/mL (19.9-100); Troponin I 0.049 ng/mL (0.000-0.034)
[2022-08-09 21:18] LABS: Band Neutrophils Percent 3 % (0-6); Influenza A QL RT-PCR Negative (Negative); Influenza B QL RT-PCR Negative (Negative); Lymphocytes Absolute Manual 1.48 K/mm3 (1.1-4.5); Metamyelocytes Percent 2 %; Monocytes Absolute Manual 0.74 K/mm3 (0.1-0.90); Monocytes Percent Manual 2 % (3-9); Myelocytes Percent 2 %; Neutrophils Absolute Manual 33.48 K/mm3 (1.7-7.2); Neutrophils Percent Manual 87 % (46-73); Platelet Estimate Adequate (Adequate); RSV RNA, RT-PCR Negative (Negative); SARS-CoV-2 RNA PCR Negative; Total Cells Counted 100
[2022-08-09 21:19] LABS: Schistocytes None Seen (NORMAL)
[2022-08-09 21:21] LABS: Procalcitonin 0.2 ng/mL
--- NOTE | 2022-08-09 21:34 | PM.IMHP ---
H&P: HPI History of Present Illness Date/Time: 08/09/22 21:34 Chief Complaint: Generalized weakness Narrative: This is an 82-year-old female with past medical history significant for atrial fibrillation rate control and anticoagulated, rheumatoid arthritis, hypertension. Patient just rated for urinary tract infection acute kidney injury and dehydration and discharged home. Comes back today after family members became concerned for the patient's generalized weakness, poor per orally intake, had syncopal episode was found laying in her bathroom after using the toilet, EMS was called . Patient denies any pain or burning with urination, no nausea, no vomiting, has been feeling very fatigued, weak, generalized malaise. Preliminary workup was significant for urinalysis with numerous WBCs present, CBC showed leukocyte count of 37,000, lactic acid upon presentation was 3.5. A chest x-ray was reported as: IMPRESSION: Pulmonary opacities may represent mild interstitial edema, overlying chronic senescent changes. A CT of the head was reported as FINDINGS: No acute intracranial hemorrhage or extra-axial fluid collection. No hydrocephalus, mass, or herniation. No acute ischemic infarct. Unremarkable dural venous sinus attenuation. No acute osseous abnormality. Mucosal thickening and aerated secretions in the inferior frontal, anterior ethmoid, and left maxillary sinuses. Bilateral maxillary retention cysts or polyps. aerated spaces are clear. Moderate atrophy and chronic white matter change. Atherosclerotic intracranial calcification. Small old right basal ganglia and pontine lacunar infarcts. Bilateral lens replacements. IMPRESSION:? No acute intracranial process. Review of Systems Review of Systems: Generalized malaise, generalized weakness, poor per orally intake, syncopal episode Constitutional: Constitutional: Denies chills, Reports fatigue, Denies fever(s), Reports lethargy, Reports malaise, Denies night sweats, Reports poor appetite and Reports weakness Eyes: Eyes: Denies change in vision ENT: Denies dysphagia and Denies odynophagia Cardiovascular: Cardiovascular: Reports syncope and Denies leg edema Respiratory: Respiratory: Denies chest congestion, Denies cough and Denies dyspnea Gastrointestinal: Gastrointestinal: Denies abdominal pain, Denies dyspepsia, Denies heartburn, Denies diarrhea, Denies nausea and Denies vomiting Genitourinary: Genitourinary: Denies dysuria Musculoskeletal: Musculoskeletal: Reports muscle weakness Integumentary/Breasts: Skin/Breast: Denies rash Neurologic: Denies focal weakness and Denies Sensory deficit (Neuro) Psychiatric: Psychiatric: Reports no additional psychiatric complaints and Reports as per HPI Endocrine: Endocrine: Denies cold intolerance, Denies flushing, Denies heat intolerance, Denies polyphagia, Denies polydipsia and Denies palpitations Hematologic/Lymphatic: Hematologic/Lymphatic: Reports no additional hematologic/lymphatic complaints and Reports as per HPI Allergic/Immunologic: Allergic/Immunologic: Reports no additional allergic/immunologic complaints and Reports as per HPI PMFSH Past Medical History Medical History Acute kidney injury Age-related osteoporosis without current pathological fracture Aortic ectasia, unspecified site Atherosclerosis of aorta Atrial fibrillation on chronic anticoagulation with Coumadin Cerebral ischemia Chronic hypokalemia Chronic obstructive pulmonary disease without exacerbation Combined systolic and diastolic congestive heart failure Echocardiogram 12/2019: Mild hypokinesis of the left ventricular apical cap, EF 48%, elevated left ventricular end-diastolic pressure, E/E elevated, moderately enlarged left atrium, [id number] mitral valve regurgitation, mild to moderate tricuspid valve regurgitation, mild pulmonary hypertension Critical ischemia of upper extremity Deh
[2022-08-09] MEDS: ASPIRIN 81 MG CHEWABLE TABLET 324 MG PO (22:24)
--- NOTE | 2022-08-09 23:18 | PC.NURSE ---
This patient, Sonia Green, was admitted to IMU Room 205-01 at 2300. Patient/family oriented to hospital policies and general routines including ID bracelet, bed and alarms, visiting hours, pain management, procedures, bathroom and other care routines, personal items, smoking policy, room service/diet, and visiting hours. Information on how to activate the Rapid Response Team has been discussed. Patient/Family are encouraged to report perceived risks to care and to ask questions if they do not understand what they are told or what they should do.
[2022-08-09] MEDS: MAGNESIUM SULF 2 GM/WATER 50ML 2 GM/50 ML BAG IVPB (23:19)
[2022-08-09] MEDS: SODIUM CHLORIDE 0.9% IV 1,000 ML 125 ML IV CONT (23:19)
[2022-08-09 23:33] LABS: Reflex Lactic Acid Yes or No Add Lactic
[2022-08-10] VITALS (15 sets, daily range): BP systolic 99–136; BP diastolic 52–83; PULSE 72–106; RESP 16–20; TEMP 35.9–36.8; O2SAT 92–100
[2022-08-10 00:25] LABS: Lactic Acid 1.6 mmol/L (0.7-2.0)
[2022-08-10] MEDS: KCL 20 MEQ/SW 100 ML 100 ML 50 MEQ IVPB (00:27)
[2022-08-10 01:46] LABS: Troponin I 0.225 ng/mL (0.000-0.034)
[2022-08-10] MEDS: SODIUM CHLORIDE 0.9% IV 1,000 ML 999 ML IV CONT (05:49)
[2022-08-10 05:53] LABS: Hematocrit 33.8 % (37.0-47.0); Hemoglobin 11.2 g/dL (12.0-15.0); Mean Corpuscular HGB Conc 33.1 g/dl (32-36); Mean Corpuscular Volume 93.6 fl (80-100); Mean Platelet Volume 11.4 fl (7.4-10.4); Platelet Count Result 272 k/mm3 (150-375); Red Blood Count 3.61 M/mm3 (4.2-5.4); Red Cell Distribution Width 13.7 % (11.5-14.5)
[2022-08-10 05:55] LABS: Anion Gap 7 mmol/L (8-16); Blood Urea Nitrogen 17 mg/dL (7-17); Calcium 6.1 mg/dL (8.4-10.2); Carbon Dioxide 25 mmol/L (22-30); Chloride 106 mmol/L (98-107); Estimated CRCL calculation 53 ml/min; Estimated Glomerular Filt Rate > 60; Glucose 113 mg/dL (65-110); Potassium 2.6 mmol/L (3.4-5.0); Sodium 138 mmol/L (137-145)
[2022-08-10 06:39] LABS: Magnesium 1.1 mg/dL (1.6-2.3)
[2022-08-10] MEDS: POTASSIUM CHLORIDE INJ 40 MEQ in SODIUM CHLORIDE 0.9% IV 500 ML 130 MEQ IVPB (08:14)
[2022-08-10] MEDS: POTASSIUM CHLORIDE 20 MEQ TABLET 40 MEQ PO (08:14)
[2022-08-10] MEDS: BUDESONIDE 3 MG CAP.SR.24H PO (08:14)
[2022-08-10] MEDS: APIXABAN 2.5 MG TABLET PO ×2 (08:14→21:33)
[2022-08-10] MEDS: PANTOPRAZOLE 40 MG TABLET PO (08:15)
--- NOTE | 2022-08-10 08:43 | PM.IMPN ---
Progress Note: A&P Assessment and Plan (1) Acute UTI: Code(s): N39.0 - Urinary tract infection, site not specified Status: Acute Assessment and Plan: Follow-up urine and blood cultures, continue Rocephin Previous UTI was pansensitive E coli (2) Hypomagnesemia: Code(s): E83.42 - Hypomagnesemia Status: Acute Assessment and Plan: Replace, recheck (3) Syncope: Code(s): R55 - Syncope and collapse Status: Acute Assessment and Plan: IV fluids, check echo History of pulmonary hypertension noted, no history of heart failure, however (4) Acute alteration in mental status: Code(s): R41.82 - Altered mental status, unspecified Status: Acute Assessment and Plan: Resolved, likely secondary to the UTI (5) Acute hypokalemia: Code(s): E87.6 - Hypokalemia Status: Acute Assessment and Plan: Still quite low, replace and recheck (6) Elevated troponin: Code(s): R77.8 - Other specified abnormalities of plasma proteins Status: Acute Assessment and Plan: Trend troponins, monitor telemetry Do not suspect acute cardiac etiology, may have chronic heart disease? (7) Nicotine dependence, cigarettes, with other nicotine-induced disorders: Code(s): F17.218 - Nicotine dependence, cigarettes, with other nicotine-induced disorders Status: Acute Assessment and Plan: Smoking cessation strongly recommended (8) Chronic obstructive pulmonary disease without exacerbation: Code(s): J44.9 - Chronic obstructive pulmonary disease, unspecified Status: Acute Assessment and Plan: Not in exacerbation, (9) Rheumatoid arthritis: Code(s): M06.9 - Rheumatoid arthritis, unspecified Status: Acute Assessment and Plan: On adalimumab (10) GERD (gastroesophageal reflux disease): Code(s): K21.9 - Gastro-esophageal reflux disease without esophagitis Status: Acute Assessment and Plan: PPI (11) Chronic atrial fibrillation: Code(s): I48.20 - Chronic atrial fibrillation, unspecified Status: Acute Assessment and Plan: On apixaban and metoprolol (12) Lymphocytic colitis: Code(s): K52.832 - Lymphocytic colitis Status: Acute Assessment and Plan: Noted in chart from earlier this year, treated with Flagyl, had previously had chronic diarrhea that appeared to improve Plan DVT prophylaxis with Eliquis GI prophylaxis on PPI at home Code status full code Subjective Date/time seen: 08/10/22 08:43 Interval history: No overnight events noted. No chest pain or shortness of breath. No more nausea, vomiting or diarrhea. No fevers or chills. Patient states she feels about the same as when she came in, still a little weak. Review of Systems Review of Systems: 12 point review of systems was assessed and was negative except as noted in the HPI Exam Narrative: General: No acute distress, alert and oriented per baseline, appears chronically ill HEENT: Atraumatic, normocephalic, mucous membranes moist CV: Regular rate and rhythm, S1, S2 Lungs: Clear to auscultation bilaterally, no rales or crackles noted, no wheezes, good air entry Abdomen: Soft, nontender, nondistended Extremities: Normal to inspection, no edema Skin: Scattered bruising of upper extremities noted, no petechiae Psych: Euthymic, normal affect Objective Data Vital Signs Vital Signs: Vital Signs - 24 hr 08/09/22 19:17 08/09/22 19:21 08/09/22 19:30 Temperature 97.7 F Pulse Rate 118 H 121 H 82 Respiratory Rate 24 H 21 H Blood Pressure 132/78 124/74 Pulse Oximetry 91 93 Oxygen Delivery Nasal Cannula Oxygen Flow Rate 1 08/09/22 20:14 08/09/22 20:11 08/09/22 20:30 Temperature Pulse Rate 114 H 109 H Respiratory Rate 20 21 H Blood Pressure 121/52 L 156/67 H Pulse Oximetry 91 90 93 Oxygen Delivery Nasal Koffi
[2022-08-10] MEDS: METOPROLOL SUCCINATE EXT REL 25 MG TABCR PO (08:52)
[2022-08-10] MEDS: LIDOCAINE 5% PATCH 1 PATCH TRANSDERM (08:52)
[2022-08-10] MEDS: MAGNESIUM SULF 4 GM/WATER100ML 4 GM/100 ML BAG IVPB (12:30)
--- NOTE | 2022-08-10 13:03 | PC.NURSE ---
This patient, Sonia Green, was transferred to [ [id number]] on 08/10/22 at 1303. Personal belongings sent with patient. Report given to [JEFFREY Silva @ 1672 ]. Appropriate documentation sent with patient.
[2022-08-10] MEDS: SODIUM CHLORIDE 0.9% IV 1,000 ML 125 ML IV CONT ×2 (14:14→22:53)
[2022-08-10 14:20] LABS: Basophils Absolute Auto 0.2 K/mm3 (0.0-0.1); Basophils Percent Auto 0.7 % (0.2-1.2); Eosinophils Percent Auto 0.1 % (0-4.4); Hematocrit 34.1 % (37.0-47.0); Hemoglobin 11.2 g/dL (12.0-15.0); Lymphocytes Absolute Auto 2.21 K/mm3 (0.9-3.2); Lymphocytes Percent Auto 10.1 % (18.3-44.2); Mean Corpuscular HGB Conc 32.8 g/dl (32-36); Mean Corpuscular Hemoglobin 30.8 pg (26-34); Mean Corpuscular Volume 93.7 fl (80-100); Monocytes Absolute Auto 1.1 K/mm3 (0.1-0.6); Monocytes Percent Auto 4.9 % (2.6-8.5); Neutrophils Absolute Auto 17.3 K/mm3 (1.3-6.7); Neutrophils Percent Auto 79.2 % (45.5-73.1); Nucleated Red Blood Cells Perc 0.1 % (0.0-0.2); Platelet Count Result 301 k/mm3 (150-375); Red Blood Count 3.64 M/mm3 (4.2-5.4); Red Cell Distribution Width 14.1 % (11.5-14.5); White Blood Count 21.9 K/mm3 (4.5-10.0)
[2022-08-10 14:49] LABS: Alanine Aminotransferase 26 U/L (6-35); Albumin Level 3.2 g/dL (3.5-5.1); Alkaline Phosphatase 118 U/L (38-126); Anion Gap 8 mmol/L (8-16); Aspartate Amino Transferase 42 U/L (14-36); Bilirubin,Total 0.5 mg/dL (0.2-1.3); Blood Urea Nitrogen 16 mg/dL (7-17); Calcium 6.3 mg/dL (8.4-10.2); Carbon Dioxide 21 mmol/L (22-30); Chloride 106 mmol/L (98-107); Estimated CRCL calculation 47 ml/min; Estimated Glomerular Filt Rate > 60; Glucose 187 mg/dL (65-110); Lipase 184 U/L (23-300); Magnesium 3.7 mg/dL (1.6-2.3); Potassium 3.5 mmol/L (3.4-5.0); Sodium 135 mmol/L (137-145)
[2022-08-10 14:52] LABS: CRP 1.9 mg/dL (<1.0)
[2022-08-10 15:01] LABS: Procalcitonin 0.2 ng/mL
[2022-08-10 15:12] LABS: Troponin I 0.206 ng/mL (0.000-0.034)
[2022-08-10 17:17] LABS: Reflex Lactic Acid Yes or No Add Lactic
[2022-08-11] VITALS (10 sets, daily range): BP systolic 129–171; BP diastolic 70–89; PULSE 50–93; RESP 16–20; TEMP 36.1–36.9; O2SAT 93–99; BMI 22.6
--- NOTE | 2022-08-11 | ECHO_ITS ---
Patient Info Name: Sonia Green Age: 82 years : 1940 Gender: Female Ht: 67 in Wt: 144 lbs BSA: 1.76 m2 HR: 78 bpm BP: 129 / 70 mmHg Heart Rhythm: Atrial Fibrillation Technical Quality: Good Exam Date: 08/11/2022 10:11 AM Exam Location: [facility] Card Pulmonary Patient Status: Inpatient Admit Date: 08/09/2022 Staff Ordering Physician: Concepcion Lopez DO Senior Telecommunications Consultant: Jonas Benson RDCS, RT Attending Provider: Denise Ingram MD Referring Physician: John COTTER; Exam Type: CA echo doppler color flow Study Info Indications R55 - Syncope and collapse Complete two-dimensional, color flow and Doppler transthoracic echocardiogram is performed. Strain analysis performed. Summary 1. Complete two-dimensional, color flow and Doppler transthoracic echocardiogram is performed. 2. Left ventricular chamber dimension is normal. 3. Left ventricular systolic function is normal, estimated at 55-60%. 4. There is mildly increased left ventricular wall thickness. 5. The left ventricular diastolic function is abnormal. 6. E/e' 10 is mildly elevated. 7. Global longitudinal strain is abnormal at -12.5%. 8. Atrial fibrillation. 9. Right ventricular systolic function is reduced based on abnormal TAPSE 1.2 cm. 10. Left atrial chamber dimension is mildly enlarged. 11. Right atrial chamber dimension is mildly enlarged. 12. There is mild aortic valve sclerosis. 13. There is mild mitral valve regurgitation. 14. There is mild tricuspid valve regurgitation. 15. Mild pulmonary hypertension, estimated pulmonary arterial systolic pressure is 44 mmHg. 16. There is trace pulmonic regurgitation. 17. Dilated inferior vena cava with <50% collapse upon inspiration consistent with significantly elevated right atrial pressure, 15 mmHg. Left Ventricle Atrial fibrillation. E/e' 10 is mildly elevated. Global longitudinal strain is abnormal at -12.5%. Left ventricular chamber dimension is normal. Left ventricular systolic function is normal, estimated at 55-60%. There is mildly increased left ventricular wall thickness. The left ventricular diastolic function is abnormal. Right Ventricle Right ventricular systolic function is reduced based on abnormal TAPSE 1.2 cm. Right ventricular chamber dimension is not well visualized. Left Atria Left atrial chamber dimension is mildly enlarged. Right Atria Right atrial chamber dimension is mildly enlarged. Aortic Valve The aortic valve is trileaflet. There is mild aortic valve sclerosis. There is no aortic valve stenosis. There is no aortic valve regurgitation. Pulmonic Valve There is trace pulmonic regurgitation. Mitral Valve There is no mitral valve stenosis. There is mild mitral valve regurgitation. Tricuspid Valve There is mild tricuspid valve regurgitation. Mild pulmonary hypertension, estimated pulmonary arterial systolic pressure is 44 mmHg. Pericardium/Pleural There is no pericardial effusion. Inferior Vena Cava Dilated inferior vena cava with <50% collapse upon inspiration consistent with significantly elevated right atrial pressure, 15 mmHg. Aorta The aortic root size at the sinus of Valsalva is normal. Left Ventricular Outflow Tract Name Value Normal LVOT 2D
[2022-08-11 05:43] LABS: Basophils Absolute Auto 0.1 K/mm3 (0.0-0.1); Basophils Percent Auto 0.5 % (0.2-1.2); Eosinophils Percent Auto 0.1 % (0-4.4); Hematocrit 31.8 % (37.0-47.0); Hemoglobin 10.3 g/dL (12.0-15.0); Immature Granulocyte Absolute 0.79 K/mm3 (0.00-0.031); Immature Granulocyte Percent A 4.1 % (0-0.5); Lymphocytes Absolute Auto 2.38 K/mm3 (0.9-3.2); Lymphocytes Percent Auto 12.3 % (18.3-44.2); Mean Corpuscular HGB Conc 32.4 g/dl (32-36); Mean Corpuscular Hemoglobin 30.2 pg (26-34); Mean Corpuscular Volume 93.3 fl (80-100); Monocytes Absolute Auto 1.1 K/mm3 (0.1-0.6); Monocytes Percent Auto 5.7 % (2.6-8.5); Neutrophils Percent Auto 77.3 % (45.5-73.1); Platelet Count Result 231 k/mm3 (150-375); Red Blood Count 3.41 M/mm3 (4.2-5.4); Red Cell Distribution Width 14.4 % (11.5-14.5); White Blood Count 19.4 K/mm3 (4.5-10.0)
[2022-08-11 05:54] LABS: Alanine Aminotransferase 23 U/L (6-35); Albumin Level 2.8 g/dL (3.5-5.1); Alkaline Phosphatase 103 U/L (38-126); Anion Gap 4 mmol/L (8-16); Aspartate Amino Transferase 31 U/L (14-36); Bilirubin,Total 0.5 mg/dL (0.2-1.3); Blood Urea Nitrogen 15 mg/dL (7-17); Calcium 6.4 mg/dL (8.4-10.2); Carbon Dioxide 22 mmol/L (22-30); Chloride 109 mmol/L (98-107); Estimated CRCL calculation 53 ml/min; Estimated Glomerular Filt Rate > 60; Glucose 95 mg/dL (65-110); Magnesium 1.6 mg/dL (1.6-2.3); Potassium 3.2 mmol/L (3.4-5.0); Sodium 135 mmol/L (137-145)
[2022-08-11] MEDS: SODIUM CHLORIDE 0.9% IV 1,000 ML 125 ML IV CONT ×2 (07:00→16:53)
[2022-08-11] MEDS: BUDESONIDE 3 MG CAP.SR.24H PO (09:40)
[2022-08-11] MEDS: METOPROLOL SUCCINATE EXT REL 25 MG TABCR PO (09:40)
[2022-08-11] MEDS: MAGNESIUM SULF 2 GM/WATER 50ML 2 GM/50 ML BAG IVPB (09:40)
[2022-08-11] MEDS: PANTOPRAZOLE 40 MG TABLET PO (09:40)
[2022-08-11] MEDS: APIXABAN 2.5 MG TABLET PO ×2 (09:40→21:36)
[2022-08-11 13:38] LABS: Lactic Acid Reflex 2.6 mmol/L (0.7-2.0)
--- NOTE | 2022-08-11 15:01 | PM.IMPN ---
Progress Note: A&P Assessment and Plan (1) Acute UTI: Code(s): N39.0 - Urinary tract infection, site not specified Status: Acute Assessment and Plan: Follow-up urine and blood cultures, continue Rocephin Leukocytosis improving Previous UTI was pansensitive E coli (2) Hypomagnesemia: Code(s): E83.42 - Hypomagnesemia Status: Acute Assessment and Plan: Replace, recheck (3) Syncope: Code(s): R55 - Syncope and collapse Status: Acute Assessment and Plan: History of pulmonary hypertension noted, no history of heart failure, however Echo showed EF of 55-60% with abnormal diastolic function, mild pulmonary hypertension and diffuse mild valvular disease noted (4) Acute alteration in mental status: Code(s): R41.82 - Altered mental status, unspecified Status: Acute Assessment and Plan: Resolved, likely secondary to the UTI (5) Acute hypokalemia: Code(s): E87.6 - Hypokalemia Status: Acute Assessment and Plan: Improving, replace and recheck tomorrow (6) Elevated troponin: Code(s): R77.8 - Other specified abnormalities of plasma proteins Status: Acute Assessment and Plan: Trend troponins, monitor telemetry Do not suspect acute cardiac etiology, may have chronic heart disease? (7) Nicotine dependence, cigarettes, with other nicotine-induced disorders: Code(s): F17.218 - Nicotine dependence, cigarettes, with other nicotine-induced disorders Status: Acute Assessment and Plan: Smoking cessation strongly recommended (8) Chronic obstructive pulmonary disease without exacerbation: Code(s): J44.9 - Chronic obstructive pulmonary disease, unspecified Status: Acute Assessment and Plan: Not in exacerbation, on no home meds for COPD F/u outpatient for PFTs (9) Rheumatoid arthritis: Code(s): M06.9 - Rheumatoid arthritis, unspecified Status: Acute Assessment and Plan: On adalimumab (10) GERD (gastroesophageal reflux disease): Code(s): K21.9 - Gastro-esophageal reflux disease without esophagitis Status: Acute Assessment and Plan: PPI (11) Chronic atrial fibrillation: Code(s): I48.20 - Chronic atrial fibrillation, unspecified Status: Acute Assessment and Plan: On apixaban and metoprolol (12) Lymphocytic colitis: Code(s): K52.832 - Lymphocytic colitis Status: Acute Assessment and Plan: Noted in chart from earlier this year, treated with Flagyl, had previously had chronic diarrhea that appeared to improve Resolved at this time (13) Lactic acidosis: Code(s): E87.20 - Acidosis, unspecified Status: Acute Assessment and Plan: likely 2/2 sepsis, recheck tomorrow, cont IVF, IV abx Plan DVT prophylaxis with Eliquis GI prophylaxis on PPI at home Code status full code Subjective Date/time seen: 08/11/22 15:01 Interval history: No overnight events noted. No chest pain or shortness of breath. No more nausea, vomiting or diarrhea. No fevers or chills. Patient states she feels much better today than yesterday. Review of Systems Review of Systems: 12 point review of systems was assessed and was negative except as noted in the HPI Exam Narrative: General: No acute distress, alert and oriented per baseline, appears chronically ill HEENT: Atraumatic, normocephalic, mucous membranes moist CV: Regular rate and rhythm, S1, S2 Lungs: Clear to auscultation bilaterally, no rales or crackles noted, no wheezes, good air entry Abdomen: Soft, nontender, nondistended Extremities: Normal to inspection, no edema Skin: Scattered bruising of upper extremities noted, no petechiae Psych: Euthymic, normal affect Objective Data Vital Signs Vital Signs: Vital Signs - 24 hr 08/10/22 16:00 08/10/22 18:20 08/10/22 20:42 Temperature 9
[2022-08-11] MEDS: ACETAMINOPHEN 500 MG TABLET 1000 MG PO (15:13)
[2022-08-11 16:22] LABS: Reflex Lactic Acid Yes or No Add Lactic
[2022-08-11 16:32] LABS: Troponin I 0.057 ng/mL (0.000-0.034)
[2022-08-11] MEDS: POTASSIUM CHLORIDE 20 MEQ TABLET 40 MEQ PO (16:53)
[2022-08-11 17:32] LABS: Lactic Acid 1.6 mmol/L (0.7-2.0)
[2022-08-11] MEDS: diphenhydrAMINE HCl CAP 25 MG CAPSULE 50 MG PO (21:36)
[2022-08-12] VITALS (10 sets, daily range): BP systolic 128–164; BP diastolic 63–104; PULSE 58–86; RESP 14–18; TEMP 36–36.9; O2SAT 96–100
[2022-08-12] MEDS: ACETAMINOPHEN 500 MG TABLET 1000 MG PO ×3 (03:19→20:28)
[2022-08-12 05:56] LABS: Basophils Absolute Auto 0.1 K/mm3 (0.0-0.1); Basophils Percent Auto 0.5 % (0.2-1.2); Eosinophils Absolute Auto 0.1 K/mm3 (0-0.3); Eosinophils Percent Auto 0.4 % (0-4.4); Hemoglobin 10.3 g/dL (12.0-15.0); Immature Granulocyte Absolute 0.49 K/mm3 (0.00-0.031); Lymphocytes Absolute Auto 2.48 K/mm3 (0.9-3.2); Lymphocytes Percent Auto 15.1 % (18.3-44.2); Mean Corpuscular HGB Conc 32.2 g/dl (32-36); Mean Corpuscular Hemoglobin 30.3 pg (26-34); Mean Corpuscular Volume 94.1 fl (80-100); Mean Platelet Volume 10.1 fl (7.4-10.4); Monocytes Absolute Auto 0.8 K/mm3 (0.1-0.6); Monocytes Percent Auto 5.1 % (2.6-8.5); Neutrophils Absolute Auto 12.4 K/mm3 (1.3-6.7); Neutrophils Percent Auto 75.9 % (45.5-73.1); Platelet Count Result 212 k/mm3 (150-375); Red Cell Distribution Width 14.2 % (11.5-14.5); White Blood Count 16.4 K/mm3 (4.5-10.0)
[2022-08-12 06:01] LABS: Lactic Acid Reflex 0.8 mmol/L (0.7-2.0)
[2022-08-12 06:08] LABS: Alanine Aminotransferase 29 U/L (6-35); Albumin Level 2.9 g/dL (3.5-5.1); Alkaline Phosphatase 106 U/L (38-126); Anion Gap 4 mmol/L (8-16); Aspartate Amino Transferase 34 U/L (14-36); Bilirubin,Total 0.6 mg/dL (0.2-1.3); Blood Urea Nitrogen 15 mg/dL (7-17); Calcium 7.4 mg/dL (8.4-10.2); Carbon Dioxide 21 mmol/L (22-30); Chloride 110 mmol/L (98-107); Estimated CRCL calculation 53 ml/min; Estimated Glomerular Filt Rate > 60; Glucose 83 mg/dL (65-110); Magnesium 1.6 mg/dL (1.6-2.3); Potassium 3.6 mmol/L (3.4-5.0); Sodium 135 mmol/L (137-145)
[2022-08-12] MEDS: SODIUM CHLORIDE 0.9% IV 1,000 ML 125 ML IV CONT (06:42)
[2022-08-12] MEDS: SIMVASTATIN 20 MG TABLET 40 MG PO (08:29)
[2022-08-12] MEDS: POTASSIUM CHLORIDE 20 MEQ TABLET.ER PO (08:30)
[2022-08-12] MEDS: BUDESONIDE 3 MG CAP.SR.24H PO (08:30)
[2022-08-12] MEDS: APIXABAN 2.5 MG TABLET PO ×2 (08:30→20:25)
[2022-08-12] MEDS: amLODIPine BESYLATE 5 MG TABLET PO (08:30)
[2022-08-12] MEDS: lisinopriL 20 MG TABLET PO (08:31)
[2022-08-12] MEDS: METOPROLOL SUCCINATE EXT REL 25 MG TABCR PO (08:31)
[2022-08-12] MEDS: LIDOCAINE 5% PATCH 1 PATCH TRANSDERM (08:32)
[2022-08-12] MEDS: PANTOPRAZOLE 40 MG TABLET PO (08:32)
--- NOTE | 2022-08-12 09:02 | PM.IMPN ---
Progress Note: A&P Assessment and Plan (1) Acute UTI: Code(s): N39.0 - Urinary tract infection, site not specified Status: Acute Assessment and Plan: Follow-up urine and blood cultures, continue Rocephin Leukocytosis improving, however, urine culture showing Enterococcus, will discontinue Rocephin in favor of ampicillin, follow urine culture Previous UTI was pansensitive E coli (2) Hypomagnesemia: Code(s): E83.42 - Hypomagnesemia Status: Acute Assessment and Plan: Replace, recheck Stable, continue to monitor (3) Syncope: Code(s): R55 - Syncope and collapse Status: Acute Assessment and Plan: History of pulmonary hypertension noted, no history of heart failure, however Echo showed EF of 55-60% with abnormal diastolic function, mild pulmonary hypertension and diffuse mild valvular disease noted Appears euvolemic (4) Acute alteration in mental status: Code(s): R41.82 - Altered mental status, unspecified Status: Acute Assessment and Plan: Resolved, likely secondary to the UTI (5) Acute hypokalemia: Code(s): E87.6 - Hypokalemia Status: Acute Assessment and Plan: Resolved, monitor (6) Elevated troponin: Code(s): R77.8 - Other specified abnormalities of plasma proteins Status: Acute Assessment and Plan: Trend troponins, monitor telemetry Do not suspect acute cardiac etiology, may have chronic heart disease? (7) Nicotine dependence, cigarettes, with other nicotine-induced disorders: Code(s): F17.218 - Nicotine dependence, cigarettes, with other nicotine-induced disorders Status: Acute Assessment and Plan: Smoking cessation strongly recommended (8) Chronic obstructive pulmonary disease without exacerbation: Code(s): J44.9 - Chronic obstructive pulmonary disease, unspecified Status: Acute Assessment and Plan: Not in exacerbation, on no home meds for COPD F/u outpatient for PFTs (9) Rheumatoid arthritis: Code(s): M06.9 - Rheumatoid arthritis, unspecified Status: Acute Assessment and Plan: On adalimumab (10) GERD (gastroesophageal reflux disease): Code(s): K21.9 - Gastro-esophageal reflux disease without esophagitis Status: Acute Assessment and Plan: PPI (11) Chronic atrial fibrillation: Code(s): I48.20 - Chronic atrial fibrillation, unspecified Status: Acute Assessment and Plan: On apixaban and metoprolol (12) Lymphocytic colitis: Code(s): K52.832 - Lymphocytic colitis Status: Acute Assessment and Plan: Noted in chart from earlier this year, treated with Flagyl, had previously had chronic diarrhea that appeared to improve Resolved at this time (13) Lactic acidosis: Code(s): E87.20 - Acidosis, unspecified Status: Acute Assessment and Plan: Resolved, discontinue IV fluids Plan DVT prophylaxis with Eliquis GI prophylaxis on PPI at home Code status full code Subjective Date/time seen: 08/12/22 09:02 Interval history: No overnight events noted. No chest pain or shortness of breath. No more nausea, vomiting or diarrhea. No fevers or chills. Patient states she feels much better today than yesterday. Review of Systems Review of Systems: 12 point review of systems was assessed and was negative except as noted in the HPI Exam Narrative: General: No acute distress, alert and oriented per baseline, appears chronically ill HEENT: Atraumatic, normocephalic, mucous membranes moist CV: Regular rate and rhythm, S1, S2 Lungs: Clear to auscultation bilaterally, no rales or crackles noted, no wheezes, good air entry Abdomen: Soft, nontender, nondistended Extremities: Normal to inspection, no edema Skin: Scattered bruising of upper extremities noted, no petechiae Psych: Euthymic, normal affect Objective Data
--- NOTE | 2022-08-12 11:11 | PC.NURSE ---
On 08/12/22, the student, [Phuc Aquino], provided care and completed [facility] documentation on this patient. I have reviewed the student's documentation and agree with the findings.
[2022-08-12] MEDS: AMPICILLIN 1 GM/NS 50 ML 1 GM/50 ML BAG IVPB ×2 (17:44→23:54)
[2022-08-12] MEDS: ALBUTEROL SULFATE NEB 2.5 MG/3 ML INH INHALATION (19:14)
[2022-08-12] MEDS: IPRATROPIUM BR 0.02% INH SOLN 0.5 MG/2.5 ML VIAL INHALATION (19:14)
[2022-08-12] MEDS: diphenhydrAMINE HCl CAP 25 MG CAPSULE 50 MG PO (20:26)
[2022-08-13] VITALS (17 sets, daily range): BP systolic 146–173; BP diastolic 66–75; PULSE 53–67; RESP 16–20; TEMP 36.3–36.6; O2SAT 98–99
[2022-08-13 05:13] LABS: Alanine Aminotransferase 30 U/L (6-35); Albumin Level 2.6 g/dL (3.5-5.1); Alkaline Phosphatase 108 U/L (38-126); Anion Gap 5 mmol/L (8-16); Aspartate Amino Transferase 31 U/L (14-36); Bilirubin,Total 0.6 mg/dL (0.2-1.3); Blood Urea Nitrogen 18 mg/dL (7-17); Calcium 7.8 mg/dL (8.4-10.2); Carbon Dioxide 23 mmol/L (22-30); Chloride 113 mmol/L (98-107); Estimated CRCL calculation 53 ml/min; Estimated Glomerular Filt Rate > 60; Glucose 76 mg/dL (65-110); Magnesium 1.2 mg/dL (1.6-2.3); Potassium 3.9 mmol/L (3.4-5.0); Sodium 141 mmol/L (137-145)
[2022-08-13 05:16] LABS: Basophils Absolute Auto 0.1 K/mm3 (0.0-0.1); Basophils Percent Auto 0.3 % (0.2-1.2); Eosinophils Absolute Auto 0.1 K/mm3 (0-0.3); Eosinophils Percent Auto 0.5 % (0-4.4); Hematocrit 30.7 % (37.0-47.0); Hemoglobin 9.8 g/dL (12.0-15.0); Immature Granulocyte Absolute 0.34 K/mm3 (0.00-0.031); Immature Granulocyte Percent A 2.2 % (0-0.5); Lymphocytes Absolute Auto 2.43 K/mm3 (0.9-3.2); Lymphocytes Percent Auto 15.4 % (18.3-44.2); Mean Corpuscular HGB Conc 31.9 g/dl (32-36); Mean Corpuscular Volume 97.2 fl (80-100); Mean Platelet Volume 10.3 fl (7.4-10.4); Monocytes Absolute Auto 0.8 K/mm3 (0.1-0.6); Neutrophils Absolute Auto 12.1 K/mm3 (1.3-6.7); Neutrophils Percent Auto 76.6 % (45.5-73.1); Platelet Count Result 195 k/mm3 (150-375); Red Blood Count 3.16 M/mm3 (4.2-5.4); Red Cell Distribution Width 14.1 % (11.5-14.5); White Blood Count 15.8 K/mm3 (4.5-10.0)
[2022-08-13] MEDS: AMPICILLIN 1 GM/NS 50 ML 1 GM/50 ML BAG IVPB ×3 (06:01→17:00)
[2022-08-13] MEDS: MAGNESIUM SULFATE 3GM/D5W100ML 3 GM/100 ML BAG IVPB (08:10)
[2022-08-13] MEDS: LIDOCAINE 5% PATCH 1 PATCH TRANSDERM (08:11)
[2022-08-13] MEDS: BUDESONIDE 3 MG CAP.SR.24H PO (08:12)
[2022-08-13] MEDS: METOPROLOL SUCCINATE EXT REL 25 MG TABCR PO (08:12)
[2022-08-13] MEDS: ACETAMINOPHEN 500 MG TABLET 1000 MG PO ×2 (08:12→21:02)
[2022-08-13] MEDS: SIMVASTATIN 20 MG TABLET 40 MG PO (08:12)
[2022-08-13] MEDS: amLODIPine BESYLATE 5 MG TABLET PO (08:13)
[2022-08-13] MEDS: POTASSIUM CHLORIDE 20 MEQ TABLET.ER PO (08:13)
[2022-08-13] MEDS: APIXABAN 2.5 MG TABLET PO ×2 (08:13→21:03)
[2022-08-13] MEDS: PANTOPRAZOLE 40 MG TABLET PO (08:13)
[2022-08-13] MEDS: lisinopriL 20 MG TABLET PO (08:13)
[2022-08-13] MEDS: IPRATROPIUM BR 0.02% INH SOLN 0.5 MG/2.5 ML VIAL INHALATION ×3 (10:02→20:36)
[2022-08-13] MEDS: ALBUTEROL SULFATE NEB 2.5 MG/3 ML INH INHALATION ×3 (10:02→20:37)
--- NOTE | 2022-08-13 12:02 | PC.NURSE ---
Charge nurse called and reported patient having periodic episodes of bradycardia in the 40's. The patient was asleep during this event. Continue to monitor.
--- NOTE | 2022-08-13 15:54 | WPDURCON ---
Assessment and Plan Assessment and plan (1) Acute UTI: Code(s): N39.0 - Urinary tract infection, site not specified Status: Acute Assessment and Plan: Continue Ampicillin, tailor to culture results. (2) Bilateral kidney stones: Code(s): N20.0 - Calculus of kidney Status: Acute Assessment and Plan: Not obstructive, patient is not interested in doing a lithotripsy at this time. We will just monitor yearly with a KUB. (3) Chronic UTI: Code(s): N39.0 - Urinary tract infection, site not specified Status: Acute Assessment and Plan: Start Cephalexin QD 250mg when finished with treatment for this infection to prevent further UTI's. We discussed increasing water intake and doing a bladder scan to ensure proper emptying. She will f/u in the office for a cystoscopy with Dr. Peña. Urology Consult Note HPI Date Seen: 08/13/22 Time Seen: 12:30 Requesting Physician: Denise Ingram MD Primary Care Provider: Kj Langley MD Consult Narrative Reason for consult: Chronic UTI Narrative: Sonia Green is a 82 year old female who was admitted after a suspected UTI and altered mental status changes/ a fall at home on 08/09/22. She describes having dysuria, frequency, urgency and incontinence. She states she has had frequent UTI's since 08/05 and has a long history of kidney stones that she has passed spontaneously. She denies previous kidney stone surgery. WBC 15.8 which is down from 16.4, creatinine is 0.70. A CT scan was done on 07/19/22 showing bilateral renal stones that are non obstructive and mild left fat stranding at that time. She has never had a cystoscopy or seen a Urologist to her knowledge. Her urine culture at this time is growing Enterococcus, but no sensitivity report has been resulted yet. Review of Systems Cardiovascular: Cardiovascular: Denies chest pain Respiratory: Respiratory: Reports no additional respiratory complaints Gastrointestinal: Gastrointestinal: Denies abdominal pain, Denies nausea and Denies vomiting Genitourinary: Genitourinary: Denies hematuria, Reports nocturia, Reports dysuria, Denies flank pain and Reports urinary urgency PMFSH Past Medical History Medical History Acute kidney injury Age-related osteoporosis without current pathological fracture Aortic ectasia, unspecified site Atherosclerosis of aorta Atrial fibrillation on chronic anticoagulation with Coumadin Cerebral ischemia Chronic hypokalemia Chronic obstructive pulmonary disease without exacerbation Combined systolic and diastolic congestive heart failure Echocardiogram 12/2019: Mild hypokinesis of the left ventricular apical cap, EF 48%, elevated left ventricular end-diastolic pressure, E/E elevated, moderately enlarged left atrium, [id number] mitral valve regurgitation, mild to moderate tricuspid valve regurgitation, mild pulmonary hypertension Critical ischemia of upper extremity Dehydration GERD (gastroesophageal reflux disease) Hyperlipidemia Hypertension Ischemia of right upper extremity (12/2019) Due to thrombotic event Kidney stones Lymphocytic colitis Lymphocytic colitis Nicotine dependence, cigarettes, 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 Protein-calorie malnutrition, mild 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 PVCs (premature ventricular contractions) Rheumatoid arthritis TIA (transient ischemic attack) Urinary tract infection Surgical History Surgical History History of bilateral carpal tunnel release in the 1980s History of bilateral cataract extraction With lens placement in left eye History of dilation and curettage 1998 History of lobectomy of lung right middle lobe 12/2013 History of tubal ligation 1974 Family History Family History (Reviewed
--- NOTE | 2022-08-13 17:25 | PM.IMPN ---
Progress Note: A&P Assessment and Plan (1) Acute UTI: Code(s): N39.0 - Urinary tract infection, site not specified Status: Acute Assessment and Plan: Patient with WBC of 37K on admisison. CXR showing pulmonary opacities, possibly edema. BCx NGTD. UA concerning for UTI. She was started on Rocephin but changed to Ampicillin with UCx growing Enterococcus. Sensitivites have returned growing Vanco resistant enterococcus faecium. WBC is still trending down. She is on Humira for her RA. Will change to Linezolid. Plan for Cephalexin 250mg daily after she completes treatment. Appreciate urology consult. (2) Syncope: Code(s): R55 - Syncope and collapse Status: Acute Assessment and Plan: Patient brought to ED for generalized weakness probably due to poor per orally intake. She had a syncopal episode and was found lying in her bathroom after using the toilet.??History of pulmonary hypertension noted, no history of heart failure, however Echo showed EF of 55-60% with abnormal diastolic function, mild pulmonary hypertension and diffuse mild valvular disease noted. Some mild bradycardia noted by telemetry. Probably syncope related to dehydration and/or vagal etiology. Appears euvolemic. Change scheduled Benadryl to prn. Complains of low back pain. Will check xray. (3) Hypomagnesemia: Code(s): E83.42 - Hypomagnesemia Status: Acute Assessment and Plan: Mag low again. Will replace. Follow (4) Acute alteration in mental status: Code(s): R41.82 - Altered mental status, unspecified Status: Acute Assessment and Plan: Resolved, likely secondary to the UTI (5) Acute hypokalemia: Code(s): E87.6 - Hypokalemia Status: Acute Assessment and Plan: Resolved, monitor. Continue oral potassium replacement. (6) Elevated troponin: Code(s): R77.8 - Other specified abnormalities of plasma proteins Status: Acute Assessment and Plan: Troponin climbed to 0.37. Echo showing EF 55-60% and abnormal diastolic function. She has mild pHTN and mild valvular disease. No wall motion abnormalities. EKG showing AFib with possible old anterior KS but no change from prior. Will continue Metoprolol and Zocor. Not on ASA but takes Eliquis for her AFib. Have her follow up with Cardiology after discharge (7) Nicotine dependence, cigarettes, with other nicotine-induced disorders: Code(s): F17.218 - Nicotine dependence, cigarettes, with other nicotine-induced disorders Status: Acute Assessment and Plan: Patient was educated about the benefits of smoking cessation. (8) Chronic obstructive pulmonary disease without exacerbation: Code(s): J44.9 - Chronic obstructive pulmonary disease, unspecified Status: Acute Assessment and Plan: Not in exacerbation, on no home meds for COPD F/u outpatient for PFTs (9) Rheumatoid arthritis: Code(s): M06.9 - Rheumatoid arthritis, unspecified Status: Acute Assessment and Plan: On adalimumab for RA. Hold given her ongoing inection. (10) Chronic atrial fibrillation: Code(s): I48.20 - Chronic atrial fibrillation, unspecified Status: Acute Assessment and Plan: Rate controlled. Tele showing occasional bradycardia but she is asymptomatic. Continue apixaban and metoprolol (11) Lymphocytic colitis: Code(s): K52.832 - Lymphocytic colitis Status: Acute Assessment and Plan: Noted in chart from earlier this year, treated with Flagyl, had previously had chronic diarrhea that appeared to improve Resolved at this time (12) Lactic acidosis: Code(s): E87.20 - Acidosis, unspecified Status: Acute Assessment and Plan: Resolved, discontinue IV fluids Plan DVT prophylaxis with Eliquis Code status full code Subjective Date/time seen: 08/13/22 17:25 Interval history: 82yo female with cAFib, RA
[2022-08-13] MEDS: LINEZOLID 600 MG TABLET PO (21:03)
[2022-08-13] MEDS: diphenhydrAMINE HCl CAP 25 MG CAPSULE PO (21:03)
[2022-08-14] VITALS (12 sets, daily range): BP systolic 154–169; BP diastolic 81–82; PULSE 52–73; RESP 16–18; TEMP 36.5–36.6; O2SAT 96–98
--- NOTE | 2022-08-14 03:04 | PCRCNOTE ---
pt asked not to be woken up for 0200 UPD. informed to call if in need of UPD.
[2022-08-14 05:53] LABS: Basophils Absolute Auto 0.1 K/mm3 (0.0-0.1); Basophils Percent Auto 0.5 % (0.2-1.2); Eosinophils Absolute Auto 0.1 K/mm3 (0-0.3); Eosinophils Percent Auto 0.8 % (0-4.4); Hematocrit 30.4 % (37.0-47.0); Hemoglobin 9.7 g/dL (12.0-15.0); Immature Granulocyte Absolute 0.28 K/mm3 (0.00-0.031); Immature Granulocyte Percent A 1.8 % (0-0.5); Lymphocytes Absolute Auto 3.14 K/mm3 (0.9-3.2); Lymphocytes Percent Auto 20.2 % (18.3-44.2); Mean Corpuscular HGB Conc 31.9 g/dl (32-36); Mean Corpuscular Hemoglobin 30.1 pg (26-34); Mean Corpuscular Volume 94.4 fl (80-100); Mean Platelet Volume 10.2 fl (7.4-10.4); Monocytes Absolute Auto 0.8 K/mm3 (0.1-0.6); Monocytes Percent Auto 4.8 % (2.6-8.5); Neutrophils Absolute Auto 11.1 K/mm3 (1.3-6.7); Neutrophils Percent Auto 71.9 % (45.5-73.1); Platelet Count Result 202 k/mm3 (150-375); Red Blood Count 3.22 M/mm3 (4.2-5.4); Red Cell Distribution Width 14.1 % (11.5-14.5); White Blood Count 15.5 K/mm3 (4.5-10.0)
[2022-08-14 06:05] LABS: Alanine Aminotransferase 26 U/L (6-35); Albumin Level 2.7 g/dL (3.5-5.1); Alkaline Phosphatase 98 U/L (38-126); Anion Gap 2 mmol/L (8-16); Aspartate Amino Transferase 26 U/L (14-36); Bilirubin,Total 0.7 mg/dL (0.2-1.3); Blood Urea Nitrogen 17 mg/dL (7-17); Calcium 8.5 mg/dL (8.4-10.2); Carbon Dioxide 26 mmol/L (22-30); Chloride 107 mmol/L (98-107); Estimated CRCL calculation 47 ml/min; Estimated Glomerular Filt Rate > 60; Glucose 78 mg/dL (65-110); Magnesium 1.4 mg/dL (1.6-2.3); Potassium 3.9 mmol/L (3.4-5.0); Sodium 135 mmol/L (137-145)
[2022-08-14] MEDS: IPRATROPIUM BR 0.02% INH SOLN 0.5 MG/2.5 ML VIAL INHALATION ×2 (07:28→13:24)
[2022-08-14] MEDS: MAGNESIUM OXIDE 200 MG TABLET PO (08:54)
[2022-08-14] MEDS: LIDOCAINE 5% PATCH 1 PATCH TRANSDERM (08:54)
[2022-08-14] MEDS: ACETAMINOPHEN 500 MG TABLET 1000 MG PO (09:01)
[2022-08-14] MEDS: MAGNESIUM SULF 2 GM/WATER 50ML 2 GM/50 ML BAG IVPB (09:01)
[2022-08-14] MEDS: APIXABAN 2.5 MG TABLET PO (09:02)
[2022-08-14] MEDS: POTASSIUM CHLORIDE 20 MEQ TABLET.ER PO (09:02)
[2022-08-14] MEDS: SIMVASTATIN 20 MG TABLET 40 MG PO (09:02)
[2022-08-14] MEDS: LINEZOLID 600 MG TABLET PO (09:02)
[2022-08-14] MEDS: BUDESONIDE 3 MG CAP.SR.24H PO (09:02)
[2022-08-14] MEDS: METOPROLOL SUCCINATE EXT REL 25 MG TABCR PO (09:02)
[2022-08-14] MEDS: amLODIPine BESYLATE 5 MG TABLET PO (09:02)
[2022-08-14] MEDS: PANTOPRAZOLE 40 MG TABLET PO (09:03)
[2022-08-14] MEDS: lisinopriL 20 MG TABLET PO (09:05)
--- NOTE | 2022-08-14 10:39 | PCPTNOTE ---
Patient refused treatment this session due to patient wanting to rest at this time. Patient reported she is tired and asked if therapy can come back later. Encouraged patient to participate with PT in room, however patient continued to refuse.
--- NOTE | 2022-08-14 13:01 | PM.DS ---
DS: Admitting Diagnosis Discharge Date 08/14/22 Admitting Diagnosis Syncope, Generalized weakness DS: Discharge Diagnosis Discharge Diagnosis (1) Sepsis: Code(s): A41.9 - Sepsis, unspecified organism Status: Acute (2) Acute UTI: Code(s): N39.0 - Urinary tract infection, site not specified Status: Acute (3) Syncope: Code(s): R55 - Syncope and collapse Status: Acute (4) Lactic acidosis: Code(s): E87.20 - Acidosis, unspecified Status: Acute (5) Hypomagnesemia: Code(s): E83.42 - Hypomagnesemia Status: Acute (6) Acute alteration in mental status: Code(s): R41.82 - Altered mental status, unspecified Status: Acute (7) Acute hypokalemia: Code(s): E87.6 - Hypokalemia Status: Acute (8) Elevated troponin: Code(s): R77.8 - Other specified abnormalities of plasma proteins Status: Acute (9) Chronic obstructive pulmonary disease without exacerbation: Code(s): J44.9 - Chronic obstructive pulmonary disease, unspecified Status: Acute (10) Chronic atrial fibrillation: Code(s): I48.20 - Chronic atrial fibrillation, unspecified Status: Acute (11) Lymphocytic colitis: Code(s): K52.832 - Lymphocytic colitis Status: Acute (12) Nicotine dependence, cigarettes, with other nicotine-induced disorders: Code(s): F17.218 - Nicotine dependence, cigarettes, with other nicotine-induced disorders Status: Acute (13) Rheumatoid arthritis: Code(s): M06.9 - Rheumatoid arthritis, unspecified Status: Acute DS: Summary Hospital Course Reason for hospitalization: 82yo female with cAFib, RA and HTN here for generalized weakness. Please see H&P for details Hospital Course: Patient brought to ED for generalized weakness and syncopal episode probably due to poor per orally intake. She had a syncopal episode and was found lying in her bathroom after using the toilet.??Brain CT showing no acute findings. Cervical spine CT showing no fracture. Echo showed EF of 55-60% with abnormal diastolic function, mild pulmonary hypertension and diffuse mild valvular disease noted. Some brief bradycardia noted by telemetry but not consistently noted. Syncope probably syncope related to dehydration and/or vagal etiology. She appears euvolemic now. Nighttime Benadryl changed to prn and will be stopped at discharge. She was complaining of low back pain. Lumbar xray shows L2 compression fracture with interval worsening since last year but not felt to be acute. Patient with sepsis present on admission with leukocytosis, tachycardia, lactic acidosis and tachypnea. Patient with WBC of 37K on admission. CXR showing pulmonary opacities, possibly edema vs chronic changes. BCx NGTD. UA concerning for UTI. She was started on Rocephin but changed to Ampicillin with UCx growing Enterococcus. Sensitivities have returned growing Vanco resistant enterococcus faecium. WBC trended down. She is on Humira for her RA which was held. She was changed to Linezolid. Urology was consulted with plan for Cephalexin 250mg daily after she completes Linezolid treatment. Appreciate urology consult. Troponin climbed to 0.37. Echo as above. No wall motion abnormalities. EKG showing AFib with possible old anterior [place] but no change from prior. We continued Metoprolol and Zocor. Not on ASA but takes Eliquis for her AFib. Will have her follow up with Cardiology after discharge. Patient was educated about the benefits of smoking cessation. She was up ambulating to the bathroom with a walker. She feels well and feels ready for discharge. She overall did well and was able to be discharged on 08/14/22 Status at Discharge Cognitive/behavioral status at discharge: stable Time Spent with Patient Time attestation: Total time spent providing and/or coordinating discharge services: 34 minutes Time spent: Greater than 30 minutes Exam Narrative: AF 17
== END 2022-08-14 15:14 | disposition home health service (06) | DRG 690 ==
LOC: ANHED 21:40 → ANHIMU 22:28 → ANH2MED 08-10 13:33
PROVIDERS: Student in an Organized Health Care Education/Training Program; Admitting Provider Internal Medicine; Emergency Provider Emergency Medicine; PCP Family Medicine; Visit Provider Internal Medicine
DX: N39.0 Urinary tract infection, site not specified (principal); I48.20 Chronic atrial fibrillation, unspecified; I50.42 Chronic combined systolic (congestive) and diastolic (congestive) heart failure; Z16.21 Resistance to vancomycin; E87.20 Acidosis, unspecified; B95.2 Enterococcus as the cause of diseases classified elsewhere; Z20.822 Contact with and (suspected) exposure to COVID-19; R55 Syncope and collapse; E83.42 Hypomagnesemia; E87.6 Hypokalemia; N20.0 Calculus of kidney; J44.9 Chronic obstructive pulmonary disease, unspecified; K52.832 Lymphocytic colitis; M06.9 Rheumatoid arthritis, unspecified; K21.9 Gastro-esophageal reflux disease without esophagitis; W19.XXXA Unspecified fall, initial encounter; N39.41 Urge incontinence; E78.5 Hyperlipidemia, unspecified; I11.0 Hypertensive heart disease with heart failure; I70.0 Atherosclerosis of aorta; F17.210 Nicotine dependence, cigarettes, uncomplicated; M81.0 Age-related osteoporosis without current pathological fracture; Z96.1 Presence of intraocular lens; Z66 Do not resuscitate; Z79.01 Long term (current) use of anticoagulants; Z86.73 Personal history of transient ischemic attack (TIA), and cerebral infarction without residual deficits; Z98.42 Cataract extraction status, left eye; Z98.41 Cataract extraction status, right eye; Z85.118 Personal history of other malignant neoplasm of bronchus and lung
CPT/HCPCS: 36415; 70450; 71045; 72100; 72125; 80048; 80053; 81001; 83605; 83690; 83735; 83880; 84145; 84484; 85025; 85027; 85610; 85730; 86140; 87040; 87077; 87086; 87088; 87186; 87637; 93005; 93306; 94640; 96360; 97110; 97161; 97165; 97530; 97535; 99285; A9270; J0290; J0696; J3475; J3480; J7030; J7040

== ENCOUNTER 2022-10-02 19:03 | Emergency (ER) | payer MEDICARE, SELFPAY ==
--- NOTE | 2022-10-02 19:12 | ED.NAVMDI ---
HPI - Nausea/Vomiting/Diarrhea General Chief complaint: Nausea/Vomiting/Diarrhea Stated complaint: body tremble Time Seen by Provider: 10/02/22 19:12 Source: patient Mode of arrival: ambulatory Limitations: no limitations Related Data Home Medications Medication Instructions Recorded Confirmed potassium chloride 20 mEq 20 meq PO DAILY 01/09/20 08/25/22 tablet,extended release(part/cryst) adalimumab 40 mg/0.8 mL See Rx Instructions subcut .COMPLEX 08/04/22 08/25/22 subcutaneous pen kit (Humira Pen) magnesium 250 mg tablet 250 mg PO DAILY 08/04/22 08/25/22 metoprolol succinate 25 mg 25 mg PO DAILY 08/10/22 08/25/22 tablet,extended release 24 hr omeprazole 20 mg capsule,delayed 20 mg PO DAILY 08/25/22 08/25/22 release Allergies Allergy/AdvReac Type Severity Reaction Status Date / Time No Known Allergies Allergy Verified 08/25/22 14:30 FOR[facility]LY [facility], [facility] Past Medical History Medical History Acute kidney injury Age-related osteoporosis without current pathological fracture Aortic ectasia, unspecified site Atherosclerosis of aorta Atrial fibrillation on chronic anticoagulation with Coumadin Cerebral ischemia Chronic hypokalemia Chronic obstructive pulmonary disease without exacerbation Combined systolic and diastolic congestive heart failure Echocardiogram 12/2019: Mild hypokinesis of the left ventricular apical cap, EF 48%, elevated left ventricular end-diastolic pressure, E/E elevated, moderately enlarged left atrium, [id number] mitral valve regurgitation, mild to moderate tricuspid valve regurgitation, mild pulmonary hypertension Critical ischemia of upper extremity Dehydration GERD (gastroesophageal reflux disease) Hyperlipidemia Hypertension Ischemia of right upper extremity (12/2019) Due to thrombotic event Kidney stones Lymphocytic colitis Lymphocytic colitis Nicotine dependence, cigarettes, 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 Protein-calorie malnutrition, mild 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 PVCs (premature ventricular contractions) Rheumatoid arthritis TIA (transient ischemic attack) Urinary tract infection Surgical History Surgical History History of bilateral carpal tunnel release in the 1980s History of bilateral cataract extraction With lens placement in left eye History of dilation and curettage 1998 History of lobectomy of lung right middle lobe 12/2013 History of tubal ligation 1974 Family History Family History Mother , in her 80s due to heart failure Hypertension CHF (congestive heart failure) Acute myocardial infarction Fallopian tube cancer, carcinoma Father Carcinoma of colon Social History Social History (Updated 08/25/22 @ 14:37 by Nilsa Sandy MA) Social History: Primary care physician: Dr. Kj Langley Code status: DNR/DNI per patient request. Patient would be willing to have pressors or noninvasive ventilatory support. Surrogate decision maker: Smoking packs per day: 1 Smoking cigarettes per day: 20.0 Years smoked: 60 Smoking pack-years: 60.00 Smoking status: Current every day smoker Tobacco type: cigarettes Second hand tobacco smoke exposure: No Alcohol intake: current Alcohol use details: rare Substance use: never Substance use type: does not use Lack of Transportation: No Lack of Food: Never True Current Housing: I Have Housing Concerned About Future Housing: No Difficulty Paying Gas/Electric Bills: No Difficulty Paying for Meds: No Currently Unemployed: No Education: High School Diploma/GED Difficulty w/ Childcare or Family Care: No Living arrangements: with family Occupation/Education: retired Additional occupation/educatio
--- NOTE | 2022-10-02 19:20 | ED.GENADULT ---
HPI - General Adult General Chief complaint: Unspecified Stated complaint: body tremble Time Seen by Provider: 10/02/22 19:12 Source: patient and family Mode of arrival: ambulatory Limitations: no limitations History of Present Illness HPI narrative: 82-year-old female presents requesting lab work to rule out sepsis. Patient reports that she has had the shakes to her hands today. She does report that since her multiple stays in the hospital she has been feeling some generalized weakness, unsteady but nothing new. She mentioned that shaking to her son over the phone and he told her that ?she was septic and needed to go to the emergency department ?. Patient reports that she has been feeling fine. She has no URI symptoms. She has no UTI symptoms. She is afebrile. Patient finished taking Keflex 5-6 days ago for urinary tract infection. She states since then she has had diarrhea 1 time a day for the past 4 days. She states this is normal for her after taking an antibiotic. She denies nausea vomiting. No abdominal pain. She is well-appearing and talkative. She reports in July she was in the hospital multiple times for IV antibiotics for urinary tract infection. All systems reviewed and negative except as noted above. Related Data Home Medications Medication Instructions Recorded Confirmed potassium chloride 20 mEq 20 meq PO DAILY 01/09/20 10/02/22 tablet,extended release(part/cryst) adalimumab 40 mg/0.8 mL See Rx Instructions subcut .COMPLEX 08/04/22 10/02/22 subcutaneous pen kit (Humira Pen) magnesium 250 mg tablet 250 mg PO DAILY 08/04/22 10/02/22 metoprolol succinate 25 mg 25 mg PO DAILY 08/10/22 10/02/22 tablet,extended release 24 hr omeprazole 20 mg capsule,delayed 20 mg PO DAILY 08/25/22 10/02/22 release Allergies Allergy/AdvReac Type Severity Reaction Status Date / Time No Known Allergies Allergy Verified 10/02/22 19:23 Review of Systems Review of Systems: CONSTITUTIONAL: Denies fever, chills, or sweats. Reports shaking to hands. EYES: Denies visual changes, redness, or discharge. ENT: Denies rhinorrhea, congestion, sore throat, or otalgia. CARDIOVASCULAR: Denies chest pain, palpitations, or edema. RESPIRATORY: Denies cough or dyspnea. GASTROINTESTINAL: Denies abdominal pain, nausea, vomiting, or diarrhea. GENITOURINARY: Denies dysuria or hematuria. SKIN: Denies rash or itching. MUSCULOSKELETAL: Denies back pain, joint pain, or myalgia. NEUROLOGIC: Denies headache, numbness, or weakness. PSYCHIATRIC: Denies anxiety or depression. All other systems reviewed are negative, except as documented in HPI. [facility] Past Medical History Medical History Acute kidney injury Age-related osteoporosis without current pathological fracture Aortic ectasia, unspecified site Atherosclerosis of aorta Atrial fibrillation on chronic anticoagulation with Coumadin Cerebral ischemia Chronic hypokalemia Chronic obstructive pulmonary disease without exacerbation Combined systolic and diastolic congestive heart failure Echocardiogram 12/2019: Mild hypokinesis of the left ventricular apical cap, EF 48%, elevated left ventricular end-diastolic pressure, E/E elevated, moderately enlarged left atrium, [id number] mitral valve regurgitation, mild to moderate tricuspid valve regurgitation, mild pulmonary hypertension Critical ischemia of upper extremity Dehydration GERD (gastroesophageal reflux disease) Hyperlipidemia Hypertension Ischemia of right upper extremity (12/2019) Due to thrombotic event Kidney stones Lymphocytic colitis Lymphocytic colitis Nicotine dependence, cigarettes, 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 Protein-calorie malnutrition, mild 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 PVCs (premature ventricular contractions) Rheumatoid arthritis TIA (transient ischemic attack) [facility]
[2022-10-02 19:23] VITALS: BP 169/92; PULSE 78; RESP 20; TEMP 36.6; O2SAT 100
== END 2022-10-02 19:50 | disposition home or self-care (01) ==
PROVIDERS: Emergency Provider Nurse Practitioner Family; PCP Family Medicine
DX: N39.0 Urinary tract infection, site not specified (principal); M81.0 Age-related osteoporosis without current pathological fracture; I70.0 Atherosclerosis of aorta; I48.91 Unspecified atrial fibrillation; Z79.01 Long term (current) use of anticoagulants; I67.82 Cerebral ischemia; J44.9 Chronic obstructive pulmonary disease, unspecified; I11.0 Hypertensive heart disease with heart failure; I50.40 Unspecified combined systolic (congestive) and diastolic (congestive) heart failure; K21.9 Gastro-esophageal reflux disease without esophagitis; E78.5 Hyperlipidemia, unspecified; I27.23 Pulmonary hypertension due to lung diseases and hypoxia; M06.9 Rheumatoid arthritis, unspecified; Z86.73 Personal history of transient ischemic attack (TIA), and cerebral infarction without residual deficits; Z98.42 Cataract extraction status, left eye; Z98.41 Cataract extraction status, right eye; Z96.1 Presence of intraocular lens; Z90.2 Acquired absence of lung [part of]
CPT/HCPCS: 81003; 87086; 87088; 99213; G0463

== ENCOUNTER 2022-10-03 09:54 | Outpatient (CLI) | payer MEDICARE, SELFPAY | END 2022-10-03 09:55 | disposition home or self-care (01) | PROVIDERS: PCP Family Medicine; Visit Provider Family Medicine | DX: R68.89 Other general symptoms and signs (principal) | CPT/HCPCS: 87040 ==

== ENCOUNTER 2022-12-23 09:50 | Outpatient (CLI) | payer MEDICARE, SELFPAY ==
--- NOTE | ~2022-12-23 | NM_ITS ---
EXAMINATION: NM jeff stress w perfusion DATE: 12/23/2022 13:46 INDICATION: Chest pain TECHNIQUE: Rest images were obtained following intravenous administration of 8.5 mCi Tc99m tetrofosmi n (Myoview). The patient was infused intravenously with Lexiscan (Regadenoson). Then, 28.1 mCi Tc99m tetrofosmin (Myoview) was administered intravenously, and stress images were obtained. Data was recon structed into short axis and horizontal and vertical long axis SPECT images. Gated SPECT images were also obtained. COMPARISON: None. FINDINGS: There is no definite reversible or fixed perfusion abnormality to suggest ischemia or infar ction. There is normal left ventricular chamber size, wall motion and ejection fraction. Left ventr icular ejection fraction measures 69%. IMPRESSION: 1. Normal myocardial perfusion at rest and during stress. 2. Left ventricular ejection fraction measuring 69%. Reviewed, dictated and finalized at location A.
--- NOTE | 2022-12-23 10:05 | EST_ITS ---
Patient Info Name: Sonia Green Age: 82 years : 1940 Gender: Female Ht: 67 in Wt: 132 lbs BSA: 1.68 m2 HR: 57 bpm BP: 118 / 86 mmHg Exam Date: 12/23/2022 12:28 PM Exam Location: [facility] Stress Patient Status: Outpatient Admit Date: 12/23/2022 Staff Ordering Physician: Kj Langley MD Attending Provider: Kj Langley MD Exercise Technologist: Luann Whitley CT Exercise Physician: Rashawn Castro DO Exam Type: CA stress jeff w NM Study Info Indications R07.9 - Chest pain, unspecified A regadenoson stress test was performed. Summary 1. 1. Negative lexiscan stress test for ischemic ST changes by ECG criteria. 2. 2. Stable hemodynamics throughout the test. 3. 3. Nuclear scan to follow and will be reported separately. Please correlate with it. 4. 4. Patient informed of the above results. Protocol: Lexiscan Stress ECG Details Stage: REST Duration (min): 1 min : 10 sec HR (bpm): 55 SBP (mmHg): 118 DBP (mmHg): 86 Stage: REST Duration (min): 6 min : 32 sec HR (bpm): 61 SBP (mmHg): 118 DBP (mmHg): 86 Stage: STAGE 1 Duration (min): 1 min : 0 sec HR (bpm): 68 SBP (mmHg): 118 DBP (mmHg): 86 Stage: RECOVERY Duration (min): 1 min : 0 sec HR (bpm): 69 SBP (mmHg): 138 DBP (mmHg): 73 Stage: RECOVERY Duration (min): 2 min : 0 sec HR (bpm): 69 SBP (mmHg): 138 DBP (mmHg): 73 Stage: RECOVERY Duration (min): 3 min : 0 sec HR (bpm): 66 SBP (mmHg): 153 DBP (mmHg): 75 Stage: RECOVERY Duration (min): 3 min : 10 sec HR (bpm): 64 SBP (mmHg): 153 DBP (mmHg): 75 Rest HR: 61 bpm Peak HR: 76 bpm Rest Sys BP: 118 mmHg Peak Sys BP: 153 mmHg Max Pred HR: 139 bpm % Max Pred HR: 55 % Target HR: 118 bpm Max RPP: 11,628 bpm*mmHg Termination Reason: Completed protocol Cardiac Symptoms: Shortness of breath Total Time: 1 min : 0 sec Rest Moreno BP: 86 mmHg Peak Moreno BP: 75 mmHg Total Dose: 0.4 mg Resting ECG Atrial fibrillation. Stress ECG Borderline ST-T wave abnormality in inferior leads. Arrhythmias No other arrhythmias. Report Signatures
== END 2022-12-23 09:51 | disposition home or self-care (01) ==
PROVIDERS: PCP Family Medicine; Visit Provider Family Medicine
DX: R07.9 Chest pain, unspecified (principal)
CPT/HCPCS: 78452; 93017; A9502; J2785

== ENCOUNTER 2023-04-18 16:25 | Emergency (ER) | payer MEDICARE, SELFPAY ==
--- NOTE | ~2023-04-18 | CT_ITS ---
EXAMINATION: CT abdomen pelvis w con INDICATION: Nausea, vomiting, and abdominal pain TECHNIQUE: Computed tomographic images of the abdomen and pelvis were obtained after the administrati on of 100 cc of Omnipaque 350 intravenous contrast. The dose-length product (DLP) was 436.57 mGy-cm. Automated exposure control and iterative reconstruction technique were employed. COMPARISON: 07/19/2022 FINDINGS: Moderate dependent atelectasis is present in the lung bases. The heart size is normal. Ther e are stable chronic interstitial opacities in the visualized lung bases. The liver, spleen, pancreas , gallbladder, and adrenal glands are normal. There are at least four nonobstructing stones of the ri ght kidney which measure up to 3 mm. There are two nonobstructing stones of the left kidney which torey sure up to 4 mm. No pathologically enlarged abdominal or pelvic lymph nodes are identified. No free i ntraperitoneal gas or evidence of bowel obstruction. There is calcified atherosclerosis of the aorta and many of the other arteries. There is a chronic compression fracture of L2. There are new compress ion deformities at T11 and L1. IMPRESSION: 1. Nonobstructing bilateral nephrolithiasis. 2. New compression fractures of T11 and L1. Reviewed, dictated and finalized at location F. 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
--- NOTE | 2023-04-18 16:28 | ED.NAVMDI ---
HPI - Nausea/Vomiting/Diarrhea General Chief complaint: Nausea/Vomiting/Diarrhea <JAMES Clark Last Filed: 04/18/23 18:56> Stated complaint: N//V <JAMES Clark Last Filed: 04/18/23 18:56> Time Seen by Provider: 04/18/23 16:28 <JAMES Clark Last Filed: 04/18/23 18:56> Source: patient <JAMES Clark Last Filed: 04/18/23 18:56> Mode of arrival: ambulatory <JAMES Clark Last Filed: 04/18/23 18:56> Limitations: no limitations <JAMES Clark Last Filed: 04/18/23 18:56> History of Present Illness HPI Narrative: Patient is an 83 y/o female who presents to the ED with c/o N/V. at bedside assisted in providing information. Patient developed vomiting around 130pm today and has had numerous episodes of emesis since then. Unable to keep anything down. Patient does feel nauseous currently. She feels weak. She denies any diarrhea, hematemesis, fevers, abdominal pain. No other family members with similar symptoms. No bad food exposure. <JAMES Clark Last Filed: 04/18/23 18:56> Related Data Home medications: Home Medications Medication Instructions Recorded Confirmed adalimumab 40 mg/0.8 mL See Rx Instructions subcut .COMPLEX 08/04/22 02/06/23 subcutaneous pen kit (Humira Pen) metoprolol succinate 25 mg 25 mg PO DAILY 08/10/22 02/06/23 tablet,extended release 24 hr cephalexin 250 mg capsule 250 mg PO DAILY 01/28/23 02/06/23 pravastatin 40 mg tablet 40 mg PO DAILY 02/06/23 02/06/23 <JAMES Clark Last Filed: 04/18/23 18:56> Allergies/Adverse reactions: Allergies Allergy/AdvReac Type Severity Reaction Status Date / Time No Known Allergies Allergy Verified 04/18/23 16:55 <Claudette Yancey PA-C - Last Filed: 04/18/23 18:56> Review of Systems Review of Systems: CONSTITUTIONAL: Denies fever, chills, or sweats. ENT: Denies rhinorrhea, congestion, sore throat. CARDIOVASCULAR: Denies chest pain. RESPIRATORY: Denies cough or dyspnea. GASTROINTESTINAL: See HPI. GENITOURINARY: Denies dysuria or hematuria. <Claudette Yancey PA-C - Last Filed: 04/18/23 18:56> All systems reviewed & are unremarkable except as noted in HPI and below <Claudette Yancey PA-C - Last Filed: 04/18/23 18:56> [facility] Past Medical History Medical History: Medical History Age-related osteoporosis without current pathological fracture Aortic ectasia, unspecified site Atherosclerosis of aorta Atrial fibrillation on chronic anticoagulation with Coumadin Bilateral kidney stones Cerebral ischemia Chronic hypokalemia Chronic obstructive pulmonary disease with (acute) exacerbation Chronic obstructive pulmonary disease without exacerbation Chronic UTI Combined systolic and diastolic congestive heart failure Echocardiogram 12/2019: Mild hypokinesis of the left ventricular apical cap, EF 48%, elevated left ventricular end-diastolic pressure, E/E elevated, moderately enlarged left atrium, [id number] mitral valve regurgitation, mild to moderate tricuspid valve regurgitation, mild pulmonary hypertension GERD (gastroesophageal reflux disease) Hyperlipidemia Hypertension Hypertensive chronic kidney disease with stage 1 through stage 4 chronic kidney disease, or unspecified chronic kidney disease Hypomagnesemia Ischemia of right upper extremity (12/2019) Due to thrombotic event Lymphocytic colitis Memory changes Nicotine dependence, cigarettes, 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 Protein-calorie malnutrition, mild 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 Rheumatoid arthritis Stage 3a chronic kidney disease <Claudette Yancey PA-C - Last Filed: 04/18/23 18:56> Surgical History Surgical History: Surgical History (
[2023-04-18 16:36] VITALS: BP 165/105; PULSE 79; RESP 20; TEMP 36.7; O2SAT 99
[2023-04-18 16:56] LABS: Basophils Absolute Auto 0.1 K/mm3 (0.0-0.1); Basophils Percent Auto 0.4 % (0.2-1.2); Eosinophils Absolute Auto 0.1 K/mm3 (0-0.3); Eosinophils Percent Auto 0.4 % (0-4.4); Hematocrit 47.4 % (37.0-47.0); Hemoglobin 15.9 g/dL (12.0-15.0); Immature Granulocyte Absolute 0.21 K/mm3 (0.00-0.031); Immature Granulocyte Percent A 1.3 % (0-0.5); Lymphocytes Percent Auto 18.5 % (18.3-44.2); Mean Corpuscular HGB Conc 33.5 g/dl (32-36); Mean Corpuscular Hemoglobin 31.7 pg (26-34); Mean Corpuscular Volume 94.6 fl (80-100); Mean Platelet Volume 9.5 fl (7.4-10.4); Monocytes Absolute Auto 0.8 K/mm3 (0.1-0.6); Neutrophils Absolute Auto 11.7 K/mm3 (1.3-6.7); Neutrophils Percent Auto 74.4 % (45.5-73.1); Platelet Count Result 229 k/mm3 (150-375); Red Blood Count 5.01 M/mm3 (4.2-5.4); Red Cell Distribution Width 12.6 % (11.5-14.5); White Blood Count 15.7 K/mm3 (4.5-10.0)
[2023-04-18] MEDS: SODIUM CHLORIDE 0.9% IV 1,000 ML 999 ML IV CONT ×2 (17:02→18:17)
[2023-04-18] MEDS: ONDANSETRON INJ 4 MG/2 ML VIAL IV PUSH (17:02)
--- NOTE | 2023-04-18 17:07 | PC.NURSE ---
N/V worse with movement. patient does not want to do orthostat BP at this time. provider aware
[2023-04-18 17:20] LABS: Alanine Aminotransferase 23 U/L (6-35); Albumin Level 4.1 g/dL (3.5-5.1); Alkaline Phosphatase 97 U/L (38-126); Anion Gap 10 mmol/L (8-16); Aspartate Amino Transferase 24 U/L (14-36); Bilirubin,Total 0.8 mg/dL (0.2-1.3); Blood Urea Nitrogen 22 mg/dL (7-17); Carbon Dioxide 25 mmol/L (22-30); Chloride 102 mmol/L (98-107); Estimated CRCL calculation 43 ml/min; Estimated Glomerular Filt Rate 60; Glucose 176 mg/dL (65-110); Lipase 131 U/L (23-300); Potassium 3.6 mmol/L (3.4-5.0); Sodium 137 mmol/L (137-145)
[2023-04-18 17:45] LABS: Magnesium 1.4 mg/dL (1.6-2.3)
[2023-04-18] MEDS: MAGNESIUM SULF 2 GM/WATER 50ML 2 GM/50 ML BAG IVPB (18:13)
[2023-04-18 19:17] VITALS: BP 131/82; PULSE 66; RESP 15; O2SAT 99
[2023-04-18 19:38] LABS: Appearance Urine Clear (Clear); Bilirubin Urine Negative (Negative); Blood Urine Negative (Negative); Color Urine Yellow (Yellow); Glucose Urine UA Negative (Negative); Ketones Urine Negative (Negative); Leukocyte Esterase Ur Negative LEU/UL (Negative); Nitrate Urine Negative (Negative); Protein Urine Negative (Negative); Specific Grav Ur 1.011 (1.001-1.035); Urobilinogen Urine 0.2 mg/dL (<2.0); pH Urine 6.5 (5.0-9.0)
[2023-04-18 19:41] LABS: Add Urine Microscopic? NO
[2023-04-18] MEDS: diphenhydrAMINE HCl INJ 50 MG/ML VIAL 25 MG IV PUSH (20:52)
[2023-04-18] MEDS: METOCLOPRAMIDE HCL INJ 10 MG/2 ML VIAL IV PUSH (20:52)
[2023-04-18 23:32] VITALS: BP 128/61; PULSE 81; RESP 16; O2SAT 94
[2023-04-19 01:14] VITALS: BP 155/61; PULSE 56; RESP 15; O2SAT 100
== END 2023-04-19 01:17 | disposition home or self-care (01) ==
PROVIDERS: Emergency Medicine; Emergency Provider Physician Assistant; PCP Family Medicine
DX: R11.2 Nausea with vomiting, unspecified (principal); E83.42 Hypomagnesemia; I70.0 Atherosclerosis of aorta; I48.91 Unspecified atrial fibrillation; I67.82 Cerebral ischemia; E87.6 Hypokalemia; J44.9 Chronic obstructive pulmonary disease, unspecified; I13.0 Hypertensive heart and chronic kidney disease with heart failure and stage 1 through stage 4 chronic kidney disease, or unspecified chronic kidney disease; N18.31 Chronic kidney disease, stage 3a; I50.40 Unspecified combined systolic (congestive) and diastolic (congestive) heart failure; I27.20 Pulmonary hypertension, unspecified; M06.9 Rheumatoid arthritis, unspecified; M81.0 Age-related osteoporosis without current pathological fracture; F17.210 Nicotine dependence, cigarettes, uncomplicated; Z66 Do not resuscitate; Z85.110 Personal history of malignant carcinoid tumor of bronchus and lung; Z87.442 Personal history of urinary calculi; Z98.41 Cataract extraction status, right eye; Z98.42 Cataract extraction status, left eye; Z96.1 Presence of intraocular lens; Z90.2 Acquired absence of lung [part of]; N20.0 Calculus of kidney; Z79.4 Long term (current) use of insulin; Z79.01 Long term (current) use of anticoagulants
CPT/HCPCS: 36415; 74177; 80053; 81003; 83690; 83735; 85025; 96361; 96365; 96375; 99284; J1200; J2405; J2765; J3475; J7030; Q9967

== ENCOUNTER 2024-08-10 14:50 | Outpatient (CLI) | payer MEDICARE, SELFPAY ==
--- NOTE | ~2024-08-10 | XR_ITS ---
EXAM: XR lumbar spine min 4V DATE: 08/10/2024 16:24 HISTORY: Arthropathic psoriasis . COMPARISON: None available. FINDINGS: Decreased mineralization. 5 nonrib-bearing lumbar-type vertebral bodies. Pedicles intact. 2 mm anterolistheses at L3-4 through L5-S1. Increased but still mild superior endplate deformity at L 1. Stable moderate anterior wedge deformity at L2. Degenerative changes at all lumbar levels, severe at L4-5 and L5-S1. Severe lower lumbar facet hypertrophy and sclerosis. No pars defects. No fracture or dislocation. IMPRESSION: Mild wedge compression fracture at L1, slightly increased since the prior exam. Stable mo derate compression deformity at L2. Multilevel lower lumbar grade 1 anterolistheses. Severe lumbar de generative disc disease at L4-5 and L5-S1. Severe lower lumbar facet arthropathy. Reviewed, dictated and finalized at location K. HICS ARTIST IMPRESSION: Mild wedge compression fracture at L1, slightly increased since the prior exam. Stable moderate compression deformity at L2. Multilevel lower lumb ar grade 1 anterolistheses. Severe lumbar degenerative disc disease at L4-5 and L5-S1. Severe lower lumbar facet arthropathy.
--- NOTE | ~2024-08-10 | XR_ITS ---
EXAM: XR foot LT 2V, XR foot RT 2V DATE: 08/10/2024 16:24 HISTORY: Arthropathic psoriasis . COMPARISON: None available. FINDINGS: Decreased mineralization. No fracture or dislocation. No lytic or blastic lesion. Moderate bilateral hallux valgus. Mild degenerative changes at the bilateral first MTP joints and multiple mi dfoot joints. Small osseous spur along the dorsal aspect of the right anterior talus. Mild bilateral Achilles and plantar enthesopathy. No erosion or periosteal change. Scattered vascular calcifications . IMPRESSION: Osteopenia. Moderate bilateral hallux valgus. 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 Reviewed, dictated and finalized at location K. T ELECTRICIAN IMPRESSION: Osteopenia. Moderate bilateral hallux valgus. Mild polyarticular os teoarthritic arthritis of the foot.
--- NOTE | ~2024-08-10 | XR_ITS ---
EXAM: XR hand LT 2V, XR hand RT 2V DATE: 08/10/2024 16:24 HISTORY: Arthropathic psoriasis . COMPARISON: None available. FINDINGS: Decreased mineralization. No fracture or dislocation. No lytic or blastic lesion. Mild sca ttered arthritic changes, typical of osteoarthritis, most notably in the bilateral DIP and PIP joints and bilateral first CMC and triscaphe joints. Chondrocalcinosis. Status post partial right second di git amputation. No erosion or periosteal change. Soft tissues within normal limits. IMPRESSION: Osteopenia. Mild polyarticular osteoarthritis. Reviewed, dictated and finalized at location K. ARCH ANALYST IMPRESSION: Osteopenia. Mild polyarticular osteoarthritis.
--- NOTE | ~2024-08-10 | XR_ITS ---
EXAM: XR sacroiliac joints min 3V DATE: 08/10/2024 16:24 HISTORY: Arthropathic psoriasis . COMPARISON: CT abdomen pelvis 04/18/2023. FINDINGS: Decreased mineralization. Severe lumbar degenerative disc disease. Mild bilateral SI joint degenerative change. Mild degenerative changes in the bilateral hips. Scattered vascular calcificati ons. No fracture or dislocation. IMPRESSION: Osteopenia. Mild bilateral SI joint and hip joint osteoarthritis. Reviewed, dictated and finalized at location K. ADVICE
--- OUTSIDE RECORDS SUMMARY | 2024-08-10 17:13 | XMS_ITS | Encounter Summary ---
Author Organization [facility] Address [address] [place] [address] Care Team Providers Care Shovel Handle Assembler Name Role Phone Kj Langley MD Primary Care Provider [phone] Alexis Jolley MD Unavailable Unavailable Encounter Details Date Type Department Care Team (Late st Contact Info) Description 02/12/2024 Lab Requisition [facility] - DermPath Lab [address] [place] [id number] Brooke House, PA-C [address] [place] [address] Neoplasm of uncertain behavior of skin; Inflamed seborrheic keratosis; Other specified erythematous conditions Social History Tobacco Use Types Packs/Day Years Used Date Smoking Tobacco: Former Cigarettes 1 50 1 08/10/1962 - 06/09/2013 Smokeless Tobacco: Never Comments:on e cig now. no ci gs since 06/09/13 Alcohol Use Standard Drinks/Week Comments Yes 2.5 (1 standard drink = 0.6 oz p ure alcohol) occ Sex and Gender Information Value Date Recorded Sex Assigned at Not on file Gender Identity Not on file Sexual Orientation Not on file documented as of this encounter Plan of Treatment Not on file documented as of this encounter Procedures Procedure Name Priority Date/Time Associated Diagnosis Comments DERMATOPATHOLOGY Routine 02/12/2024 12:0 0 AM CDT Neoplasm of uncertain behavior of skin Inflamed seborrheic keratosis Other specified erythematous conditions documented in this encounter Results * DERMATOPATHOLOGY (02/12/2024 12:00 AM CDT) Case Report Dermatopathology Report Case: [id number] Authorizing Provider: Brooke House PA-C Collected: 02/12/2024 12:00 AM Ordering Location: [facility] - Received: 02/16/2024 12:59 PM DermPath Lab Pathologist: Lexie Diaz MD Specimens: A) - Skin, right nasal ala B) - Skin, left posterior neck C) - Skin, left clavicular chest D) - Skin, left upper back E) - Skin, left nasal ala F) - Skin, left upper arm G) - Skin, right anterior neck 4:37 PM CDT DERMATOPATHOLOGY LABORATORY Final Diagnosis Specimen A. SKIN, right nasal ala: BASAL CELL CARCINOMA, NODULAR TYPE (C44.311) Specimen B. SKIN, left posterior neck: VERRUCA VULGARIS (B07.8) OVERLYING CUTANEOUS HORN (L85.8) Specimen C. SKIN, left clavicular chest: HYPERPLASTIC (HYPERTROPHIC) ACTINIC KERATOSIS (L57.0) Specimen D. SKIN, left upper back: SEBORRHEIC KERATOSIS, INFLAMED (L82.0) Specimen E. SKIN, left nasal ala: BASAL CELL CARCINOMA, NODULAR TYPE (C44.311) Specimen F. SKIN, left upper arm: BENIGN VERRUCOUS KERATOSIS, INFLAMED (L82.1) Specimen G. SKIN, right anterior neck: SEBORRHEIC KERATOSIS, IRRITATED (L82.0) 4:37 PM CDT DERMATOPATHOLOGY LABORATORY Clinical History A: BCC B: SCC C: SCC D: ISK E: BCC F: SCC G: ISK 4:37 PM CDT DERMATOPATHOLOGY LABORATORY Gross Description Specimen A: Received is one formalin filled container labeled with the patient's name and designated right nasal ala. The specimen consists of a shave biopsy measuring 7x6x3;8x6x3 mm. Jar 0. Specimen B: Received is one formalin filled container labeled with the patient's name and designated left posterior neck. The specimen consists of a shave biopsy measuring 83g51l4 mm. Jar 0. Specimen C: Received is one formalin filled container labeled with the patient's name and designated left clavicular chest. The specimen consists of a shave biopsy measuring 7x4x2 mm. Jar 0. Specimen D: Received is one formalin filled container labeled with the patients name and designated left upper back. The specimen consists of a shave removal measuring 34h58o0;11n49i5;20x 14x3;49e97h1;32x20x 8 mm. Jar 0. Specimen E: Received is one formalin filled container labeled with the patient's name and designated left nasal ala. The specimen consists of a shave biopsy measuring 5x5x1 mm. Jar 0. Specimen F: Received is one formalin filled container labeled with the patient's name and designated left upper arm. The specimen consists of a shave biopsy measuring 7x7x4 mm. Jar 0. Specimen G: Received is one formalin filled container labeled with the patients name and designated right anterior neck. The specimen consists of a shave removal measuring 27r15m46 mm. Jar 0. 4 4:37 PM T DERMATOPATHOLOGY LABORATORY Microscopic Description Specimen A. SKIN, right nasal ala: Within the dermis there are aggregates of basaloid cells with a high nuclear to cytoplasmic ratio and peripheral palisading. Specimen B. SKIN, left posterior neck: There is digitated epidermal hyperplasia, hypergranulosis, vacuolated granular layer cells, and compact hyperorthokeratosis . There is a column of marked compact hyperkeratosis. Specimen C. SKIN, left clavicular chest: There is hyperkeratosis alternating with parakeratosis. There is epidermal hyperplasia with disorderly maturation of keratinocytes with nuclear pleomorphism confined to the lower half of the epidermis. Specimen D. SKIN, left upper back: There is hyperkeratosis, parakeratosis, papillomatosis, and acanthosis of the epidermis. There is a lymphohistiocytic infiltrate within the papillary dermis that is focally lichenoid. Specimen E. SKIN, left nasal ala: Within the dermis there are aggregates of basaloid cells with a high nuclear to cytoplasmic ratio and peripheral palisading. Specimen F. SKIN, left upper arm: Sections show hyperkeratosis, papillomatosis, hypergranulosis, and acanthosis. Inflammatory cells are present within the dermis. These histological findings can be seen in a verruca vulgaris or a seborrheic keratosis. Specimen G. SKIN, right anterior neck: There is acanthosis consisting of fairly uniform squamous cells with eosinophilic cytoplasm and squamous eddies. 4 4:37 PM CDT DERMATOPATHOLOGY LABORATORY Disclaimer An external and internal positive and negative controls are appropriate for the histochemical, immunohistochemical and immunofluorescence stain(s) in this case (if any), except where stated explicitly. The performance characteristics of the stain(s) cited in this report were developed and its performance characteristic determined by the Dermatopathology Laboratory at [facility], directed by Dr. Dileep Diaz. These tests need not be, and therefore are not, approved by the [place] Food and Drug Administration. The tests are used for clinical purposes. Billing Codes Specimen Charges Stain Charges 74618 [id number] [id number] [id number] 33200 1 1 1 1 1 1 1 4 4:37 PM CDT DERMATOPATHOLOGY LABORATORY Embedded Images 4:37 PM CDT DERMATOPATHOLOGY LABORATORY Pathology/Cytology TISSUE SPECIMEN FROM SKIN / Unknown 02/12/2024 02/16/2024 12:59 PM CDT Miscellaneous samples (specimen) TISSUE SPECIMEN FROM SKIN / Unknown 02/12/2024 02/16/2024 12:59 PM CDT Miscellaneous samples (specimen) TISSUE SPECIMEN FROM SKIN / Unknown 02/12/2024 02/16/2024 12:59 PM CDT Miscellaneous samples (specimen) TISSUE SPECIMEN FROM SKIN / Unknown 02/12/2024 02/16/2024 12:59 PM CDT Miscellaneous samples (specimen) TISSUE SPECIMEN FROM SKIN / Unknown 02/12/2024 02/16/2024 12:59 PM CDT Miscellaneous samples (specimen) TISSUE SPECIMEN FROM SKIN / Unknown 02/12/2024 02/16/2024 12:59 PM CDT Miscellaneous samples (specimen) TISSUE SPECIMEN FROM SKIN / Unknown 02/12/2024 02/16/2024 12:59 PM CDT Brooke House PA-C LAB - PATHOLOGY/CYTO LOGY ORDERABLES DERMATOPATHOLOGY LABORATORY [facility] - Department of Dermatology [address] [phone] documented in this encounter Visit Diagnoses Diagnosis Neoplasm of uncertain behavior of skin Inflamed seborrheic keratosis Other specified erythematous conditions documented in this encounter Care Teams Shovel Handle Assembler Relationship Specialty Start Date End Date Kj Langley MD [address] [place] [address] PCP - General 12/04/09 Alexis Jolley MD [address] [place] [address] Rheumatology 04/30/11 documented as of this encounter
--- OUTSIDE RECORDS SUMMARY | 2024-08-10 17:13 | XMS_ITS | Encounter Summary ---
Author Organization [facility] Address [address] [address] Care Team Providers Care Video Game Maker Name Role Phone Kj Langley MD Primary Care Provider [phone] Alexis Jolley MD Unavailable Unavailable Encounter Details Date Type Department Care Team (Late st Contact Info) Description 10/05/2013 SS Outpatient Visit EXTERNAL NON-[facility] DEPT Alexis Jolley MD Social History Tobacco Use Types Packs/Day Years [...] on file documented as of this encounter Visit Diagnoses Not on filedocumented in this encounter Care Teams Video Game Maker Relationship Specialty Start Date End Date Kj Langley MD [address] [place] [address] PCP - General 12/04/09 Alexis Jolley MD [address] [place] [address] Rheumatology 04/30/11 documented as of this encounter
--- OUTSIDE RECORDS SUMMARY | 2024-08-10 17:13 | XMS_ITS | Patient Health Summary ---
Author Organization [facility] Address [address] [place] [address] Care Team Providers Care Dice Manager Name Role Phone Kj Langley MD Primary Care Provider [phone] Alexis Jolley MD Unavailable Unavailable Note from [facility],non-owned Affiliates and Associated Physician Practices is amultiple site organization consisting of ambulatory clinics and hospital sitesin [place], [place], [place] and [place]. This disclosure is being madepursuant to the Care Everywhere program and may not contain all information available regarding this patient. Last updated 18.[facility] Allergies * Oxycodone-Acetaminophen Medications * Be aware that medications may not be up to date on this document. Alwaysverify current medications with the patient. * Vitamin D 2000 UNIT TABS Take 2000 Units by mouth daily. * Elbow Support MISC(Started 12/04/2009) Use. On right elbow * simvastatin (ZOCOR) 40 MG tablet Take 40 mg by mouth at bedtime. * omeprazole (PRILOSEC) 20 MG capsule(Started 07/15/2010) Take 1 Cap by mouth daily before breakfast. 3 refills left * varenicline (CHANTIX STARTING MONTH ) 0.5 MG X 11 & 1 MG X 42 tablets Take by mouth as directed. Take 0.5 mg daily days 1-3, twice daily days 4-7, then 1 mg twice daily * acetaminophen (TYLENOL) 500 MG tablet(Started 10/28/2012) Take 2 Tabs by mouth 3 times daily. Maximum allowable Acetaminophen amount = 4 Grams / 24 hours. 12 refills left * Aspirin 81 MG TBEC Take by mouth. * predniSONE (DELTASONE) 5 MG tablet(Started 10/09/2013) TAKE ONE TABLET BY MOUTH ONCE DAILY 3 refills left * ibuprofen (MOTRIN) 200 MG tablet Take 400 mg by mouth every 8 hours as needed for Pain. * JANTOVEN 3 MG tablet(Started 07/24/2014) * Tuberculin-Allergy Syringes 25G X 5/8 1 ML MISC(Started 08/17/2014) Inject 1 mL subcutaneously every 7 days. 2 refills left * leflunomide (ARAVA) 10 MG tablet(Started 08/17/2014) Take 1 Tab by mouth once daily. 2 refills left * folic acid (FOLVITE) 1 MG tablet(Started 11/13/2014) TAKE ONE TABLET BY MOUTH ONCE DAILY 3 refills left * traMADol (ULTRAM) 50 MG tablet(Started 11/20/2014) Take 0.5-1 Tabs by mouth 3 times daily as needed for Pain. 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/01/2011 Lateral epicondylitis 12/04/2009 High risk medications (not anticoagulants) long- term use 12/04/2009 Rheumatoid arthritis 12/04/1994 Social History Tobacco Use Types Packs/Day Years [...] on file Sexual Orientation Not on file Last Filed Vital Signs Vital Sign Reading Time Taken Comments Blood Pressure 118/72 03/06/2015 11:38 AM CDT Pulse 80 03/06/2015 11:38 AM CDT Temperature - - Respiratory Rate - - Oxygen Saturation - - Inhaled Oxygen Concentration - - Weight 72.5 kg (159 lb 12.8 oz) 015 11:38 AM CDT Height 172.7 cm (5' 8 ) 03/06/2015 11:3 8 AM CDT Body Mass Index 24.3 03/06/2015 11:38 AM CDT Procedures * DERMATOPATHOLOGY(Performed 02/12/2024) Performed for Neoplasm of uncertain behavior of skin, Inflamed seborrheic keratosis, Other specified erythematous conditions * DEXA BONE DENSITY AXIAL SKELETON(Performed 07/20/2017) Performed for 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), Drug therapy, Arthritis ofboth knees * XR KNEE BILAT 2VW OR LESS(Performed 10/20/2016) Performed for Arthritis of both knees * CBC W AUTO DIFFERENTIAL(Performed 03/06/2015) Performed for High risk medications (not anticoagulants) long-term use * COMPREHENSIVE METABOLIC PANEL(Performed 03/06/2015) Performed for High risk medications (not anticoagulants) long-term use * DEXA BONE DENSITY 2 SITES(Performed 09/14/2014) * LAB RESULTS ORDER(Performed 08/17/2014) * COMPREHENSIVE METABOLIC PANEL(Performed 01/16/2014) Performed for High risk medications (not anticoagulants) long-term use * CBC W AUTO DIFFERENTIAL(Performed 01/16/2014) Performed for High risk medications (not anticoagulants) long-term use * QUANTIFERON IN TUBE REFLEXED(Performed 10/10/2013) Performed for Screening examination for pulmonary tuberculosis * QUANTIFERON TB-GOLD(Performed 10/10/2013) Performed for Screening examination for pulmonary tuberculosis * COMPREHENSIVE METABOLIC PANEL(Performed 10/10/2013) Performed for Encounter for long-term (current) use of other medications * CBC W AUTO DIFFERENTIAL(Performed 10/10/2013) Performed for Encounter for long-term (current) use of other medications * XR HAND BILAT 1VW(Performed 06/28/2013) Performed for Rheumatoid Arthritis (Hcc) * COMPREHENSIVE METABOLIC PANEL(Performed 10/28/2012) Performed for High risk medications (not anticoagulants) long-term use * CBC W AUTO DIFFERENTIAL(Performed 10/28/2012) Performed for High risk medications (not anticoagulants) long-term use * XR HAND BILAT 1VW(Performed 04/30/2012) Performed for Rheumatoid arthritis (HCC) * COMPREHENSIVE METABOLIC PANEL(Performed 04/29/2012) Performed for High risk medications (not anticoagulants) long-term use * CBC W AUTO DIFFERENTIAL(Performed 04/29/2012) Performed for High risk medications (not anticoagulants) long-term use * US EXTREMITY LEFT COMP JOINT(Performed 11/05/2011) Performed for Rheumatoid arthritis (HCC) * US EXTREMITY NON VASCULAR RIGHT(Performed 11/05/2011) Performed for Rheumatoid arthritis (HCC) * C-REACTIVE PROTEIN(Performed 10/30/2011) Performed for Rheumatoid arthritis (HCC) * COMPREHENSIVE METABOLIC PANEL(Performed 10/30/2011) Performed for High risk medications (not anticoagulants) long-term use * CBC W AUTO DIFFERENTIAL(Performed 10/30/2011) Performed for High risk medications (not anticoagulants) long-term use * DEXA BONE DENSITY 2 SITES(Performed 05/15/2011) * DEXA BONE DENSITY 2 SITES(Performed 05/15/2011) * XR HAND BILAT 1VW(Performed 05/02/2011) Performed for Rheumatoid arthritis (HCC) * C-REACTIVE PROTEIN(Performed 05/01/2011) Performed for Rheumatoid arthritis (HCC) * COMPREHENSIVE METABOLIC PANEL(Performed 05/01/2011) Performed for High risk medications (not anticoagulants) long-term use * CBC W AUTO DIFFERENTIAL(Performed 05/01/2011) Performed for High risk medications (not anticoagulants) long-term use * HEPATIC FUNCTION PANEL(Performed 12/27/2010) Performed for High risk medications (not anticoagulants) long-term use * CBC W AUTO DIFFERENTIAL(Performed 12/27/2010) Performed for High risk medications (not anticoagulants) long-term use * HEPATIC FUNCTION PANEL(Performed 04/09/2010) Performed for High risk medications (not anticoagulants) long-term use * CBC W AUTO DIFFERENTIAL(Performed 04/09/2010) Performed for High risk medications (not anticoagulants) long-term use * LAB RESULTS ORDER(Performed 12/14/2009) * URIC ACID BLOOD(Performed 12/04/2009) * VITAMIN D 25-HYDROXY(Performed 12/04/2009) Performed for Rheumatoid Arthritis (HCC) * C-REACTIVE PROTEIN(Performed 12/04/2009) Performed for Rheumatoid Arthritis (HCC) * COMPREHENSIVE METABOLIC PANEL(Performed 12/04/2009) Performed for Rheumatoid Arthritis (HCC), Encounter for Long-Term (Current) Use of NSAIDs * CBC W AUTO DIFFERENTIAL(Performed 12/04/2009) Performed for Rheumatoid Arthritis (HCC), Encounter for Long-Term (Current) Use of NSAIDs Results * DERMATOPATHOLOGY (02/12/2024 12:00 AM CDT) Case Report Dermatopathology Report Case: [id number] Authorizing Provider: Brooke House PA-C Collected: 02/12/2024 12:00 AM Ordering Location: [facility] - Received: 02/16/2024 12:59 PM [...] specimen consists of a shave biopsy measuring [id number] mm. Jar 0. Specimen C: Received is one formalin filled container labeled with the patient's name and designated left clavicular chest. The specimen consists of a shave biopsy measuring 7x4x2 mm. Jar 0. Specimen D: Received is one formalin filled container labeled with the patients name and designated left upper back. The specimen consists of a shave removal measuring 91v14k3;46d40l6;20x 14x3;65x16i2;32x20x 8 mm. Jar 0. Specimen E: Received [...] specimen consists of a shave removal measuring [id number] mm. Jar 0. 4 4:37 PM T [...] cells with eosinophilic cytoplasm and squamous eddies. 4:37 PM CDT DERMATOPATHOLOGY LABORATORY Disclaimer An external and internal positive and negative controls are appropriate for the histochemical, immunohistochemical and immunofluorescence stain(s) in this case (if any), except where stated explicitly. The performance characteristics of the stain(s) cited in this report were developed and its performance characteristic determined by the Dermatopathology Laboratory at [facility], directed by Dr. Dileep Diaz. These tests need not be, and therefore are not, approved by the [place] Food and Drug Administration. The tests are used for clinical purposes. Billing Codes Specimen Charges Stain Charges 54914 [id number] 1 1 1 1 1 1 1 [...] LAB - PATHOLOGY/CYTO LOGY ORDERABLES DERMATOPATHOLOGY LABORATORY 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 FINDINGS: The average bone mineral density from L1 to L4 is1.176 g/cm2. T-score is 0. Z-score is 1.7. The average bone mineral density of the total right hip is 0.857 g/cm2. T-score is -1.2. Z-score is 0.6. ASSESSMENT: This patient is considered osteopenic according to World Health Organization criteria. Bone density is between 10 and 25% below young normal. Fracture risk is mild. Treatment is advised. WORLD HEALTH ORGANIZATION DEFINITIONS OSTEOPENIA = -1 TO -2.5 SD BELOW T-SCORE. OSTEOPOROSIS = LESS THAN -2.5 SD BELOW T-SCORE Procedure Note Sheila Shannon MD - 07/20/2017 BONE MINERAL DENSITY STUDY INDICATION: Postmenopausal ovarian failure - osteoporosis screening. FINDINGS: The average bone mineral density from L1 to L4 is1.176 g/cm2. T-score is 0. Z-score is 1.7. The average bone mineral density of the total right hip is 0.857 g/cm2. T-score is -1.2. Z-score is 0.6. ASSESSMENT: This patient is considered osteopenic according to World Health Organization criteria. Bone density is between 10 and 25% below young normal. Fracture risk is mild. Treatment is advised. WORLD HEALTH ORGANIZATION DEFINITIONS OSTEOPENIA = -1 TO -2.5 SD BELOW T-SCORE. OSTEOPOROSIS = LESS THAN -2.5 SD BELOW T-SCORE Alexis Jolley MD DEXA ORDERABLES * XR KNEE BILAT ONE OR TWO VIEWS (10/20/2016 2:40 PM CDT) Anatomical Region Laterality Modality Lower Extremity Radiographic Zoraida ging 10/20/2016 2:57 PM CDT Impressions 10/20/2016 3:03 PM CDT No acute osseous abnormality Narrative 10/20/2016 3:03 PM CDT Bilateral knees 2 views each INDICATION: Bilateral knee pain FINDINGS: 2 views of each knee without prior shows no evidence of acute fracture, subluxation or dislocation. Vascular calcifications are present. Procedure Note Dylan Soriano MD - 10/20/2016 Bilateral knees 2 views each INDICATION: Bilateral knee pain FINDINGS: 2 views of each knee without prior shows no evidence of acute fracture, subluxation or dislocation. Vascular calcifications are present. IMPRESSION No acute osseous abnormality Alexis Jolley MD DIAGNOSTIC IMAGING O RDERABLES * (ABNORMAL) CBC W AUTO DIFFERENTIAL (03/06/2015 12:22 PM CDT) Only the most recent of10 resultswithin the time period is included. WBC 5.3 4.4 - 10.7 x10E9/L [facility] INSURANCE BILL RBC 4.37 3.80 - 5.20 x10E12/L [facility] INSURANCE BILL Hemoglobin 12.8 12.0 - 15.6 gm/dL [facility] INSURANCE BILL Hematocrit 40.8 35.9 - 45.5 % [facility] INSURANCE BILL MCV 93.4 80.7 - 98.3 fL [facility] INSURANCE BILL MCH 29.3 26.7 - 34.0 pg [facility] INSURANCE BILL MCHC 31.4 30.8 - 35.9 gm/dL [facility] INSURANCE BILL RDW 15.3(H) 12.1 - 14.9 % [facility] INSURANCE BILL Platelet Count 268 153 - 416 x10E9/L [facility] INSURANCE BILL Comment:MPV FL BLOOD (SSM) 1 0.4 fl 9.4-12.9 Granulocytes % 60.7 44.0 - 73.0 % [facility] INSURANCE BILL Lymphocytes % 20.9 20.0 - 43.0 % [facility] INSURANCE BILL Monocytes % 12.9 5.0 - 13.0 % [facility] INSURANCE BILL Eosinophils % 4.4 0.0 - 6.0 % [facility] INSURANCE BILL Basophils % 0.2 0.0 - 2.0 % [facility] INSURANCE BILL Granulocytes Absolute 3.20 2.01 - 7.14 x10E9/L [facility] INSURANCE BILL Lymphocytes Absolute 1.10 1.07 - 3.94 x10E9/L [facility] INSURANCE BILL Monocytes Absolute 0.68 0.26 - 1.07 x10E9/L [facility] INSURANCE BILL Eosinophils Absolute 0.23 0 - 0.47 x10E9/L [facility] INSURANCE BILL Basophils Absolute 0.01 0 - 0.08 x10E9/L [facility] INSURANCE BILL Immature Granulocytes 0.9 0 - 1 % [facility] INSURANCE BILL Immature Granulocytes Absolute 0.05 0.00 - 0.06 x10E9/L [facility] INSURANCE BILL nRBC 0 /100 WBC [facility] INSURANCE BILL Blood specimen (specimen) BLOOD SPECIMEN / Unknown 03/06/2015 12:22 PM CDT 03/06/2015 6:49 PM CDT Narrative Resulting Agency Comment [facility] [address] [place] [phone] Alexis Jolley MD LAB - HEMATOLOGY ORD ERABLES [facility] INSURANCE BILL * COMPREHENSIVE METABOLIC PANEL (03/06/2015 12:22 PM CDT) Only the most recent of8 resultswithin the time period is included. Glucose 90 74 - 106 mg/dL [facility] INSURANCE BILL BUN 16 7 - 21 mg/dL [facility] INSURANCE BILL Creatinine 0.74 0.50 - 1.30 mg/dL [facility] INSURANCE BILL eGFR by MDRD >60 mL/min/1.7 3m2 [facility] INSURANCE BILL eGFR by MDRD >60 mL/min/1.7 3m2 [facility] INSURANCE BILL Sodium 144 136 - 145 mmol/L [facility] INSURANCE BILL Potassium 4.2 3.5 - 5.1 mmol/L [facility] INSURANCE BILL Chloride 106 98 - 107 mmol/L [facility] INSURANCE BILL CO2 30 22 - 31 mmol/L [facility] INSURANCE BILL Calcium 9.3 8.5 - 10.1 mg/dL [facility] INSURANCE BILL Protein Total 6.9 6.4 - 8.2 gm/dL [facility] INSURANCE BILL Albumin 3.6 3.4 - 5.0 gm/dL [facility] INSURANCE BILL Bilirubin Total 0.5 0.2 - 1.0 mg/dL [facility] INSURANCE BILL Alkaline Phosphatase 115 38 - 126 U/L [facility] INSURANCE BILL AST 22 5 - 40 U/L [facility] INSURANCE BILL ALT 33 12 - 78 U/L [facility] INSURANCE BILL Blood specimen (specimen) BLOOD SPECIMEN / Unknown 03/06/2015 12:22 PM CDT 03/06/2015 6:49 PM CDT Narrative Resulting Agency Comment [facility] [address] [place] [phone] Alexis Jolley MD LAB - [facility] INSURANCE BILL * DEXA BONE DENSITY 2 SITES (09/14/2014) Only the most recent of3 resultswithin the time period is included. Anatomical Region Laterality Modality Other Alexis Jolley MD DEXA ORDERABLES * LAB RESULTS ORDER (08/17/2014) Only the most recent of2 resultswithin the time period is included. Alexis Jolley MD LAB - THERAPEUTIC MONITORING ORDERABLES * QUANTIFERON IN TUBE REFLEXED (PO REF LAB) (10/10/2013 10:54 AM CDT) QuantiFERON TB Gold Negative Negative [facility] INSURANCE BILL QuantiFERON Criteria [facility] INSURANCE BILL Comment: To be considered positive a specimen should have a TB Ag minus Nil value greater than or equal to 0.35 IU/mL and in addition the TB Ag minus Nil value must be greater than or equal to 25% of the Nil value. There may be insufficient information in these values to differentiate between some negative and some indeterminate test values. QuantiFERON TB Ag Value 0.06 IU/mL [facility] INSURANCE BILL QuantiFERON Nil Value 0.07 IU/mL [facility] INSURANCE BILL QuantiFERON Mitogen Value 1.21 IU/mL [facility] INSURANCE BILL QFT TB Ag Minus Nil Value IU/mL <0.00 IU/mL [facility] INSURANCE BILL Interpretation [facility] INSURANCE BILL Comment: The QuantiFERON TB Gold (in Tube) assay is intended for use as an aid in the diagnosis of TB infection. Negative results suggest that there is no TB infection. In patients with high suspicion of exposure, a negative test should be repeated. A positive test indicates infection with Mycobacterium tuberculosis. Among individuals without tuberculosis infection, a positive test may be due to exposure to M. kansasii, M. szulgai or M. marinum. On the Internet, go to cdc.gov/tb for further details. 10/10/2013 10:5 4 AM CDT 10/10/2013 1:00 PM CDT Narrative Resulting Agency Comment [facility] [address] [phone] Alexis Jolley MD LAB - CHEMISTRY IVORY ZHU Performing Organization Address City/[facility]/ZIP Co de Phone Number [facility] INSURANCE BILL * QUANTIFERON TB-GOLD (10/10/2013 10:54 AM CDT) [facility] QuantiFERON Incubation [facility] INSURANCE BILL Comment:Incubated, testing t o follow. Blood specimen (specimen) BLOOD SPECIMEN / Unknown 10/10/2013 10:54 AM CDT 10/10/2013 1:00 PM CDT Narrative Resulting Agency Comment [facility] [address] [place] [phone] Alexis Jolley MD LAB - CHEMISTRY IVORY ZHU Performing Organization Address City/[facility]/ZIP Co de Phone Number [facility] INSURANCE BILL * XR HANDS BILAT SINGLE VIEW (06/28/2013 12:35 PM PROFESSOR OF BIOCHEMISTRY) Only the most recent of4 resultswithin the time period is included. Anatomical Region Laterality Modality Wrist / Hand, Upper Extremity Ot her Narrative 06/28/2013 12:35 PM PROFESSOR OF BIOCHEMISTRY Alexis Jolley MD 06/28/2013 12:35 PM [id number] Procedure Note Alexis Jolley MD - 06/28/2013 12:35 PM CST [id number] Alexis Jolley MD DIAGNOSTIC IMAGING O RDERABLES * US EXTREMITY NON VASCULAR RIGHT (11/05/2011 9:16 AM CDT) Anatomical Region Laterality Modality Lower Extremity, Upper Extremity Other Narrative 11/05/2011 9:16 AM CDT Alexis Jolley MD 11/05/2011 9:16 AM Bilateral Hand Ultrasound Protocol: Complete Bilateral Hand Study for RA Activity and Median nerve dimensions using MyLab5 Ultrasound Apparatus with a 438 probe at 18mHz. This standardized study consists of dorsal and volar views of the MCP (2,3,5) and PIP (2,3) joints, with medial and lateral views as clinically indicated to show erosive change. The wrists are evaluated with medial dorsal views (combined as PW ) and a transverse volar view (AW). The median nerve is identified using a sweep technique starting in the mid forearm and measured at the proximal margin of the Quadratus and at the entrance to the carpal tunnel wrist crease immediately proximal to the carpal tunnel. An increase in median nerve diameter of over 4 mm immediately proximal the flexor retinaculum suggests significant Median nerve compression. Synovitis, erosions and power doppler signal are recorded as 0-3. Tenosynovitis is noted when present. Incidental findings of tophi, crystal deposition, that might effect the diagnostic impression are recorded by the recreation establishment manager under the direction of the attending physician and interpreted by Dr Jolley. Right Synovitis Erosion Doppler Left Synovitis Erosion Doppler 2M 3 2 2 2M 2 2 0 2P 0 0 0 2P 0 0 0 3M 0 0 0 3M 0 0 0 3P 2 0 0 3P 0 0 0 5M 0 0 0 5M 0 0 0 PW 0 0 0 PW 2 0 0 RMN 5-8 mm2 LMN 6-7mm2 Findings : Joint damage is limited to second MCP both hands. Synovitis is compatible with mild without PDUS. Median nerve changes are normal. IMP: Mild inflammatory arthritis with early mild joint damage Contact Alexis Jolley MD directly to discuss this case at [phone]. Procedure Note Alexis Jolley MD - 11/05/2011 9:14 AM CDT Bilateral Hand Ultrasound Protocol: Complete Bilateral Hand Study for RA Activity and Median nerve dimensionsusing MyLab5 Ultrasound Apparatus with a 438 probe at 18mHz. Thisstandardized study consists of dorsal and volar views of the MCP (2,3,5)and PIP (2,3) joints, with medial and lateral views as clinicallyindicated to show erosive change. The wrists are evaluated with medialdorsal views (combined as PW ) and a transverse volar view (AW). Themedian nerve is identified using a sweep technique starting in the midforearm and measured at the proximal margin of the Quadratus and at theentrance to the carpal tunnel wrist crease immediately proximal to thecarpal tunnel. An increase in median nerve diameter of over 4 mmimmediately proximal the flexor retinaculum suggests significant Mediannerve compression. Synovitis, erosions and power doppler signal arerecorded as 0-3. Tenosynovitis is noted when present. Incidentalfindings of tophi, crystal deposition, that might effect the diagnosticimpression are recorded by the recreation establishment manager under the direction of theattending physician and interpreted by Dr Jolley. Right Synovitis Erosion Doppler Left Synovitis Erosion Doppler 2M 3 2 2 2M 2 2 0 2P 0 0 0 2P 0 0 0 3M 0 0 0 3M 0 0 0 3P 2 0 0 3P 0 0 0 5M 0 0 0 5M 0 0 0 PW 0 0 0 PW 2 0 0 RMN 5-8 mm2 LMN 6-7mm2 Findings : Joint damage is limited to second MCP both hands. Synovitis iscompatible with mild without PDUS. Median nerve changes are normal. IMP: Mild inflammatory arthritis with early mild joint damage Contact Alexis Jolley MD directly to discuss this case at [phone]. Alexis Jolley MD US ORDERABLES * US EXTREMITY LEFT COMPLT NONVASC (11/05/2011 9:16 AM CDT) Anatomical Region Laterality Modality Lower Extremity, Upper Extremity Other Narrative 11/05/2011 9:16 AM CDT Alexis Jolley MD 11/05/2011 9:16 AM Bilateral Hand Ultrasound Protocol: Complete Bilateral Hand Study for RA Activity and Median nerve dimensions using Fusion [employer]odiesLab5 Ultrasound Apparatus with a 438 probe at 18mHz. This standardized study consists of dorsal and volar views of the MCP (2,3,5) and PIP (2,3) joints, with medial and lateral views as clinically indicated to show erosive change. The wrists are evaluated with medial dorsal views (combined as PW ) and a transverse volar view (AW). The median nerve is identified using a sweep technique starting in the mid forearm and measured at the proximal margin of the Quadratus and at the entrance to the carpal tunnel wrist crease immediately proximal to the carpal tunnel. An increase in median nerve diameter of over 4 mm immediately proximal the flexor retinaculum suggests significant Median nerve compression. Synovitis, erosions and power doppler signal are recorded as 0-3. Tenosynovitis is noted when present. Incidental findings of tophi, crystal deposition, that might effect the diagnostic impression are recorded by the recreation establishment manager under the direction of the attending physician and interpreted by Dr Jolley. Right Synovitis Erosion Doppler Left Synovitis Erosion Doppler 2M 3 2 2 2M 2 2 0 2P 0 0 0 2P 0 0 0 3M 0 0 0 3M 0 0 0 3P 2 0 0 3P 0 0 0 5M 0 0 0 5M 0 0 0 PW 0 0 0 PW 2 0 0 RMN 5-8 mm2 LMN 6-7mm2 Findings : Joint damage is limited to second MCP both hands. Synovitis is compatible with mild without PDUS. Median nerve changes are normal. IMP: Mild inflammatory arthritis with early mild joint damage Contact Alexis Jolley MD directly to discuss this case at [phone]. Procedure Note Alexis Jolley MD - 11/05/2011 9:14 AM CDT Bilateral Hand Ultrasound Protocol: Complete Bilateral Hand Study for RA Activity and Median nerve dimensionsusing MyLab5 Ultrasound Apparatus with a 438 probe at 18mHz. Thisstandardized study consists of dorsal and volar views of the MCP (2,3,5)and PIP (2,3) joints, with medial and lateral views as clinicallyindicated to show erosive change. The wrists are evaluated with medialdorsal views (combined as PW ) and a transverse volar view (AW). Themedian nerve is identified using a sweep technique starting in the midforearm and measured at the proximal margin of the Quadratus and at theentrance to the carpal tunnel wrist crease immediately proximal to thecarpal tunnel. An increase in median nerve diameter of over 4 mmimmediately proximal the flexor retinaculum suggests significant Mediannerve compression. Synovitis, erosions and power doppler signal arerecorded as 0-3. Tenosynovitis is noted when present. Incidentalfindings of tophi, crystal deposition, that might effect the diagnosticimpression are recorded by the recreation establishment manager under the direction of theattending physician and interpreted by Dr Jolley. Right Synovitis Erosion Doppler Left Synovitis Erosion Doppler 2M 3 2 2 2M 2 2 0 2P 0 0 0 2P 0 0 0 3M 0 0 0 3M 0 0 0 3P 2 0 0 3P 0 0 0 5M 0 0 0 5M 0 0 0 PW 0 0 0 PW 2 0 0 RMN 5-8 mm2 LMN 6-7mm2 Findings : Joint damage is limited to second MCP both hands. Synovitis iscompatible with mild without PDUS. Median nerve changes are normal. IMP: Mild inflammatory arthritis with early mild joint damage Contact Alexis Jolley MD directly to discuss this case at [phone]. Alexis Jolley MD US ORDERABLES * (ABNORMAL) C-REACTIVE PROTEIN (10/30/2011 11:13 AM CDT) Only the most recent of3 resultswithin the time period is included. C-Reactive Protein 12.6(H) 0.0 - 4.9 mg/L [facility] INSURANCE BILL Blood specimen (specimen) BLOOD SPECIMEN / Unknown 10/30/2011 11:13 AM CDT 10/30/2011 5:21 PM CDT Narrative Resulting Agency Comment [facility] [address] [id number] Alexis Jolley MD LAB - CHEMISTRY IVORY ZHU [facility] Organization Address City/State/ZIP Co de Phone Number [facility] INSURANCE BILL * HEPATIC FUNCTION PANEL (12/27/2010 10:36 AM CDT) Only the most recent of2 resultswithin the time period is included. Protein Total 6.7 6.0 - 8.5 g/dL [facility] INSURANCE BILL Albumin 4.0 3.6 - 4.8 g/dL [facility] INSURANCE BILL Bilirubin Total 0.2 0.0 - 1.2 mg/dL [facility] INSURANCE BILL Bilirubin Direct 0.07 0.00 - 0.40 mg/dL [facility] INSURANCE BILL Alkaline Phosphatase 77 25 - 165 IU/L [facility] INSURANCE BILL AST 21 0 - 40 IU/L [facility] INSURANCE BILL ALT 20 0 - 40 IU/L [facility] INSURANCE BILL BLOOD SPECIMEN / Unknown 12/27/2010 10:36 AM CDT 12/27/2010 5:58 PM CDT Narrative [facility] INSURANCE BILL - 12/28/2010 6:12 AM CDT A courtesy copy of this report has been sent to the patient. Resulting Agency [facility] [address] [phone] Alexis Jolley MD LAB - CHEMISTRY IVORY ZHU Performing Organization Address City/[facility]/ZIP Co de Phone Number [facility] INSURANCE BILL * URIC ACID BLOOD (12/04/2009 8:59 AM CDT) Uric Acid 4.9 2.4 - 8.2 mg/dL [facility] INSURANCE BILL 12/04/2009 8:59 AM CDT 12/04/2009 4:51 PM CDT Narrative Resulting Agency [facility] [address] [phone] Alexis Jolley MD LAB - CHEMISTRY IVORY ZHU Performing Organization Address [facility] Co de Phone Number [facility] INSURANCE BILL * VITAMIN D 25-HYDROXY (12/04/2009 8:59 AM CDT) Vitamin D, 25 Hydroxy 62.9 32.0 - 100.0 ng/mL [facility] INSURANCE BILL Comment: Recent studies consider the lower limit of 32.0 ng/mL to be a threshold for optimal health. Gurmeet DILLARD. J Nutr. 2005 Jul;135(2):317-22. BLOOD SPECIMEN / Unknown 12/04/2009 8:59 AM CDT 12/04/2009 4:51 PM CDT Narrative Resulting Agency Comment [facility] [address] [phone] Alexis Jolley MD LAB - CHEMISTRY IVORY ZHU [facility] INSURANCE BILL Care Teams Dice Manager Relationship Specialty Start Date End Date Kj Langley MD [address] [facility] [place] [address] PCP - General 12/04/09 Alexis Jolley MD [address] [place] [address] Rheumatology 04/30/11
--- OUTSIDE RECORDS SUMMARY | 2024-08-10 17:13 | XMS_ITS | Referral Summary ---
Author Organization [facility] Address [address] [facility] [place] [address] Care Team Providers Care Fruit Or Nut Farmer Name Role Phone Kj Langley MD Primary Care Provider [phone] Alexis Jolley MD Unavailable Unavailable Source Comments [facility],non-owned Affiliates and Associated Physician Practices is amultiple site organization consisting of ambulatory clinics and hospital sitesin [place], [place], [place] and [place]. This disclosure is being madepursuant to the Care Everywhere program and may not contain all information available regarding this patient. Last updated 18.[facility] Allergies Active Allergy Reactions Criticality Noted Date Comments Oxycodone-Acetaminophen 01/16/2014 Medications * Be aware that medications may not be up to date on this document. Alwaysverify current medications with the patient. Medication Sig Dispensed Refills Start Date End Date Status Vitamin D 2000 UNIT TABS Take 2000 Units by mouth daily. Active Elbow Support MISCIndications:Late ral epicondylitis Use. On right elbow 1 0 12/04/2009 Active simvastatin (ZOCOR) 40 MG tablet Take 40 mg by mouth at bedtime. Active omeprazole (PRILOSEC) 20 MG capsule Take 1 Cap by mouth daily before breakfast. 90 Cap 3 07/15/2010 Active varenicline (CHANTIX STARTING MONTH ) 0.5 MG X 11 & 1 MG X 42 tablets Take by mouth as directed. Take 0.5 mg daily days 1-3, twice daily days 4-7, then 1 mg twice daily Active acetaminophen (TYLENOL) 500 MG tabletIndications:Rh eumatoid arthritis(714.0) ([facility]) Take 2 Tabs by mouth 3 times daily. Maximum allowable Acetaminophen amount = 4 Grams / 24 hours. 30 Tab 12 10/28/2012 Active Aspirin 81 MG TBEC Take by mouth. Ac tive predniSONE (DELTASONE) 5 MG tablet TAKE ONE TABLET BY MOUTH ONCE DAILY 90 Tab 3 10/09/2013 Active ibuprofen (MOTRIN) 200 MG tablet Take 400 mg by mouth every 8 hours as needed for Pain. Active JANTOVEN 3 MG tablet 07/24/2014 Acti ve Tuberculin-Allergy Syringes 25G X 5/8 1 ML MISCIndications:Rheu matoid arthritis(714.0) ([facility]) Inject 1 mL subcutaneously every 7 days. 12 Each 2 08/17/2014 Active leflunomide (ARAVA) 10 MG tabletIndications:Rh eumatoid arthritis(714.0) ([facility]) Take 1 Tab by mouth once daily. 90 Tab 2 08/17/2014 Active folic acid (FOLVITE) 1 MG tablet TAKE ONE TABLET BY MOUTH ONCE DAILY 90 Tab 3 11/13/2014 Active traMADol (ULTRAM) 50 MG tabletIndications:Rh eumatoid arthritis(714.0) ([facility]) Take 0.5-1 Tabs by mouth 3 times daily as needed for Pain. 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 Overview (03/07/2015): 05/01/2011 on chronic low dose steroids checking BMD testing today 04/29/2012 Frax 20% global 5.2% hip Treatment initiated 03/07/2015 09/14/14 Bone density looks good will continue calcium and vitamin-D without bisphosphonate Lateral epicondylitis 12/04/2009 Overview (12/04/2009): RIGHT High risk medications (not anticoagulants) long- term use 12/04/2009 Rheumatoid arthritis 12/04/1994 Overview (04/22/2015): 12/04/2009 normal ESR and CRP will check [facility] MCV and Hand Xray 01/14/2010 MCV positive 05/01/2011 R3-0 on MTX and prednisone 04/29/2012 R3=4.3 06/28/2013 R3=6.7 S10T3 Diagnostic ultrasound for causes of bilateral hand pain will continue MTX add arava 10 mg daily lab every 6 weeks times 2 Social History Tobacco Use Types Packs/Day Years [...] Mass Index 24.3 03/06/2015 11:38 AM CDT Plan of Treatment Not on file Procedures Procedure Name Priority Date/Time Associated Diagnosis Comments DEXA BONE DENSITY AXIAL SKELETON Routine 07/20/2017 2:31 PM ENTRY LEVEL SALES REPRESENTATIVE 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) Drug therapy Arthritis of both knees from Last 3 Months or Most Recently Relevant to Health Maintenance Results * DEXA BONE DENSITY AXIAL SKELETON (07/20/2017 2:31 PM ENTRY LEVEL SALES REPRESENTATIVE) Anatomical Region Laterality Modality Mammography 07/20/2017 2:33 PM ENTRY LEVEL SALES REPRESENTATIVE Narrative 07/20/2017 2:34 PM [facility] BONE MINERAL DENSITY STUDY INDICATION: Postmenopausal ovarian [...] BELOW T-SCORE Alexis Jolley MD DEXA ORDERABLES from Last 3 Months or Most Recently Relevant to Health Maintenance Care Teams Fruit Or Nut Farmer Relationship Specialty Start Date End Date Kj Langley MD [address] [place] [address] [place] [address] PCP - General 12/04/09 Alexis Jolley MD [address] [place] [address] [place] [address] Rheumatology 04/30/11
--- OUTSIDE RECORDS SUMMARY | 2024-08-10 17:13 | XMS_ITS | Clinical Summary ---
Author Organization [facility] Address [address] [facility] [place] [address] Care Team Providers Care Echocardiography Technologist Name Role Phone Kj Langley MD Primary Care Provider [phone] Alexis Jolley MD Unavailable Unavailable Source Comments [facility],non-owned Affiliates and Associated Physician Practices is amultiple site organization consisting of ambulatory clinics and hospital sitesin [place], [place], [place] and [place]. This disclosure is being madepursuant to the Care Everywhere program and may not contain all information available regarding this patient. Last updated 18.[facility] Allergies Active Allergy Reactions Criticality Noted Date [...] acetaminophen (TYLENOL) 500 MG tabletIndications:Rh eumatoid arthritis(714.0) ([facility]) Take 2 Tabs by mouth 3 times [...] X 5/8 1 ML MISCIndications:Rheu matoid arthritis(714.0) ([facility]) Inject 1 mL subcutaneously every 7 days. 12 Each 2 08/17/2014 Active leflunomide (ARAVA) 10 MG tabletIndications:Rh eumatoid arthritis(714.0) ([facility]) Take 1 Tab by mouth once daily. 90 Tab 2 08/17/2014 Active folic acid (FOLVITE) 1 MG tablet TAKE ONE TABLET BY MOUTH ONCE DAILY 90 Tab 3 11/13/2014 Active traMADol (ULTRAM) 50 MG tabletIndications:Rh eumatoid arthritis(714.0) ([facility]) Take 0.5-1 Tabs by mouth 3 times [...] daily lab every 6 weeks times 2 Family History Medical History Relation Name Comments Cancer Father Cancer - Other Father CAD (Coronary Artery Disease) Mother Relation Name Status Comments Father Mother Social History Tobacco Use Types Packs/Day Years [...] 03/06/2015 11:38 AM CDT Plan of Treatment Health Maintenance Due Date Last Done Comments DTAP/TDAP/TD VACCINES (1 - Tdap) 1960 PNEUMOCOCCAL VACCINE 50+ (1 of 1 - PCV) 1991 ZOSTER VACCINE (1 of 2) 1991 Respiratory Syncytial Virus (RSV) Vaccine Pt: or over 60 yrs (1 - 1-dose 75+ series) 2016 COVID-19 VACCINE (1 - 2024-25 season) 2024 INFLUENZA VACCINE (#1) 2024 DEPRESSION SCREENING 06/15/2024 MEDICARE AWV CALENDAR YEAR 2024 BONE DENSITY TESTING Completed 07/20/2017, 09/14/2014, 05/15/2011, Additional history exists HEPATITIS B VACCINE Aged Out No longe r eligible based on patient's age to complete this topic HIB VACCINE Aged Out No longer eligi ble based on patient's age to complete this topic HPV VACCINE Aged Out No longer eligi ble based on patient's age to complete this topic MENINGOCOCCAL (Group B) VACCINE Aged Out No longer eligible based on patient's age to complete this topic MENINGOCOCCAL VACCINE Aged Out No manjeet shukri eligible based on patient's age to complete this topic Procedures Procedure Name Priority Date/Time Associated Diagnosis Comments DEXA BONE DENSITY AXIAL SKELETON Routine 07/20/2017 2:31 PM DISASTER RECOVERY COORDINATOR 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) Drug therapy Arthritis of both knees from Last 3 Months or Most Recently Relevant to Health Maintenance Results * DEXA BONE DENSITY AXIAL SKELETON (07/20/2017 2:31 PM DISASTER RECOVERY COORDINATOR) Anatomical Region Laterality Modality Mammography 07/20/2017 2:33 PM DISASTER RECOVERY COORDINATOR Narrative 07/20/2017 2:34 PM DISASTER RECOVERY COORDINATOR BONE MINERAL DENSITY STUDY INDICATION: Postmenopausal ovarian [...] Recently Relevant to Health Maintenance Care Teams Echocardiography Technologist Relationship Specialty Start Date End Date Kj Langley MD [address] [place] [address] PCP - General 12/04/09 Alexis Jolley MD [address] [place] [address] Rheumatology 04/30/11
[2024-08-10 17:51] LABS: Basophils Absolute Auto 0.1 K/mm3 (0.0-0.1); Basophils Percent Auto 0.7 % (0.2-1.2); Eosinophils Absolute Auto 0.2 K/mm3 (0-0.3); Eosinophils Percent Auto 1.6 % (0-4.4); Hematocrit 49.2 % (37.0-47.0); Immature Granulocyte Absolute 0.17 K/mm3 (0.00-0.031); Immature Granulocyte Percent A 1.3 % (0-0.5); Lymphocytes Absolute Auto 3.47 K/mm3 (0.9-3.2); Lymphocytes Percent Auto 26.9 % (18.3-44.2); Mean Corpuscular HGB Conc 32.5 g/dl (32-36); Mean Corpuscular Volume 98.4 fl (80-100); Mean Platelet Volume 9.9 fl (7.4-10.4); Monocytes Percent Auto 7.5 % (2.6-8.5); Platelet Count Result 218 k/mm3 (150-375); Red Cell Distribution Width 12.3 % (11.5-14.5); White Blood Count 12.9 K/mm3 (4.5-10.0)
[2024-08-10 17:57] LABS: Add Urine Microscopic? YES; Appearance Urine Clear (Clear); Bacteria Urine None Seen /hpf; Bilirubin Urine Negative (Negative); Blood Urine Negative (Negative); Color Urine Yellow (Yellow); Glucose Urine UA Negative (Negative); Ketones Urine Negative (Negative); Leukocyte Esterase Ur Trace LEU/UL (Negative); Nitrate Urine Negative (Negative); Non Pathogenic Casts 0-2; Protein Urine Negative (Negative); RBC Urine 0-2 /hpf (0-2); Specific Grav Ur 1.012 (1.001-1.035); Squamous Epithelial Cell Urine Few /hpf (Few); Urobilinogen Urine 0.2 mg/dL (<2.0); WBC Urine 0-5 /hpf (0-3); pH Urine 5.5 (5.0-9.0)
[2024-08-10 18:26] LABS: Alanine Aminotransferase 23 U/L (6-35); Albumin Level 4.2 g/dL (3.5-5.1); Alkaline Phosphatase 100 U/L (38-126); Anion Gap 11 mmol/L (4-12); Aspartate Amino Transferase 28 U/L (14-36); Bilirubin,Total 0.7 mg/dL (0.2-1.3); Blood Urea Nitrogen 27 mg/dL (7-17); CRP < 0.5 mg/dL (<1.0); Carbon Dioxide 28 mmol/L (22-30); Chloride 100 mmol/L (98-107); Estimated Glomerular Filt Rate > 60; Glucose 86 mg/dL (65-110); Phosphorus 4.1 mg/dL (2.5-4.5); Potassium 4.4 mmol/L (3.4-5.0); Sodium 139 mmol/L (137-145); Uric Acid 5.3 mg/dL (2.5-7.5)
[2024-08-10 18:36] LABS: Erythrocyte Sedimentation Rate 9 mm/hr (0-20)
[2024-08-10 18:39] LABS: Immunoglobulin A 741 mg/dL (70-400)
[2024-08-10 18:57] LABS: Hepatitis B Surface Antigen Negative (Negative)
[2024-08-10 19:02] LABS: HAV RESULT Negative (Negative); Hepatitis B Core IgM Result Negative (Negative)
[2024-08-10 19:15] LABS: Hepatitis B Surface Anti Res Positive; Hepatitis C Virus Antibody Negative (Negative)
[2024-08-12 16:04] LABS: Cyclic Citrullinated Peptide >250 UNITS
[2024-08-12 16:49] LABS: NIL 0.01 IU/mL; Quantiferon TB Plus, 1T NEGATIVE (NEGATIVE)
== END 2024-08-10 14:51 | disposition home or self-care (01) ==
PROVIDERS: PCP Family Medicine; Visit Provider Internal Medicine
DX: M85.89 Other specified disorders of bone density and structure, multiple sites (principal); M19.042 Primary osteoarthritis, left hand; M19.041 Primary osteoarthritis, right hand; M20.12 Hallux valgus (acquired), left foot; M20.11 Hallux valgus (acquired), right foot; M19.072 Primary osteoarthritis, left ankle and foot; M19.071 Primary osteoarthritis, right ankle and foot; S32.010A Wedge compression fracture of first lumbar vertebra, initial encounter for closed fracture; S32.020A Wedge compression fracture of second lumbar vertebra, initial encounter for closed fracture; M43.16 Spondylolisthesis, lumbar region; M51.369 Other intervertebral disc degeneration, lumbar region without mention of lumbar back pain or lower extremity pain; M51.379 Other intervertebral disc degeneration, lumbosacral region without mention of lumbar back pain or lower extremity pain; M47.896 Other spondylosis, lumbar region; M16.0 Bilateral primary osteoarthritis of hip; M46.1 Sacroiliitis, not elsewhere classified; X58.XXXA Exposure to other specified factors, initial encounter
CPT/HCPCS: 36415; 72110; 72202; 73120; 73620; 80053; 80074; 81001; 82784; 84100; 84443; 84550; 85025; 85652; 86038; 86039; 86140; 86200; 86480; 86706

== ENCOUNTER 2025-01-10 07:45 | Outpatient (CLI) | payer MEDICARE, SELFPAY ==
--- NOTE | ~2025-01-10 | DEXA_ITS ---
Bone Density Report Name: JAZMYNE BARNETT Age: 84 Sex: Female Ethnicity: White Date of : 1940 Indication: postmenopausal; screening for osteoporosis; height loss; prior fracture; Referring Provider: LZI MCMAHON Study: Bone densitometry was performed. Exam Date: January 10, 2025 Accession number: [id number] Bone Density: Region BMD T-score Z-score Classification AP Spine(L1-L4) 0.990 -0.5 2.3 Normal Femoral Neck (Left) 0.608 -2.2 0.3 Osteopenia Total Hip (Left) 0.672 -2.2 0.1 Osteopenia Femoral Neck (Right) 0.587 -2.4 0.1 Osteopenia Total Hip (Right) 0.614 -2.7 -0.4 Osteoporosis Total Hip Mean 0.643 -2.5 -0.2 Osteopenia World Health Organization criteria for BMD impression classify patients as: Normal (T-score at or above -1.0), Osteopenia (T-score between -1.0 and -2.5), or Osteoporosis (T-score at or below -2.5). 10-year Fracture Risk: FRAX not reported because: Some T-score for Spine Total or Hip Total or Femoral Neck at or below -2.5 Prior hip or vertebral fracture Previous Exams: Region Exam Age BMD T-score BMD Change BMD Change Date g/cm2 vs Baseline vs Previous Total Hip(Left) 01/10/2025 84 0.672 -2.2 -0.151 (-18.3% -0.244 (-26.6% 09/14/2014 74 0.916 -0.2 0.093 (11.3%)# 0.093 (11.3%)# 05/15/2011 71 0.823 -1.0 Total Hip(Right) 01/10/2025 84 0.614 -2.7 -0.225 (-26.8% -0.245 (-28.5% 09/14/2014 74 0.859 -0.7 0.020 (2.4%)# 0.020 (2.4%)# 05/15/2011 71 0.840 -0.8 *Denotes significance at 95% confidence level, LSC for Total Hip = 0.027 g/cm2 # Denotes dissimilar scan types or analysis methods Clinical Information Provided by Patient: Have had a previous hip or vertebral fracture Has had a low trauma fracture Smokes Patient maximum height was 68 Menopause Age: 56 No regular weight bearing exercise Drinks caffeinated beverages Onset of menses at age 12 Number of children 2 Impression: The patient has established osteoporosis, based on the Right Total Hip T-score and the existence of a prior fracture. The patient has risk factors, including: smoking, previous fracture. The BMD for the Total Hip(Left) decreased, changing by -26.6% since the last DXA exam. The BMD for the Total Hip(Right) decreased, changing by -28.5% since the last DXA exam. Discussion: HIGH RISK OF FRACTURE. BONE DENSITY IS UNDESIRABLY LOW AT ONE OR MORE SKELETAL SITES, CONSISTENT WITH POSTMENOPAUSAL OSTEOPOROSIS. This patient's lowest T-score, in a patient who has previously fractured, meets the World Health Organization's (WHO) criteria for severe osteoporosis. In untreated patients, the risk of osteoporotic fracture increases approximately two-fold for each 1.0 SD decrease in T-score. Low bone density is not the only risk factor for fracture; also consider factors such as patient's age, frailty or poor health, risk of falling, risk of injury, previous osteoporotic fracture, family history of osteoporosis, cigarette smoking, low body weight, etc. Not everyone with low bone mineral density has osteoporosis; osteomalacia and other metabolic bone disorders should also be considered. Patients who have osteoporosis should be evaluated for specific diseases and conditions (secondary causes) that may cause or contribute to bone loss. The [place] Association of Clinical Endocrinologists (AACE) and National Osteoporosis Foundation (NOF) recommend pharmacologic intervention for all postmenopausal women with a previous hip or vertebral fracture and a T-score in this range. The patient should follow a healthful lifestyle (good nutrition with adequate calcium and vitamin D, and appropriate weight-bearing exercise). Follow-Up: Consider a repeat BMD and Vertebral Fracture Assessment (VFA) exam in 2 years or sooner if medically necessary, to reassess this patient's status. Reported by: AN on 01/10/2025 8:53:00 AM. Reviewed, dictated and finalized at location A.
--- OUTSIDE RECORDS SUMMARY | 2025-01-10 07:50 | XMS_ITS | Encounter Summary ---
Author Organization [facility] Address [facility] [place] [address] Care Team Providers Care Business Education Instructor Name Role Phone Kj Langley MD Primary Care Provider [phone] Alexis Jolley MD Unavailable Unavailable Encounter Details Date Type Department Care Team (Late st Contact Info) Description 02/12/2024 Lab Requisition [facility] - DermPath Lab [address] [place] [id number] [place] House, PA-C [address] [place] [address] Neoplasm of uncertain behavior of skin; Inflamed seborrheic keratosis; Other specified erythematous conditions Social History Tobacco Use Types Packs/Day Years Used Date Smoking Tobacco: Former Cigarettes 1 50 1 08/10/1962 - 06/09/2013 Smokeless Tobacco: Never Comments:on e cig now. 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 Gender Identity Not on file Sexual Orientation Not on file Occupation Industry Job Start Date Job End Date Retired from [employer] Not on file Not on file Not on file documented as of this encounter Plan of Treatment Not on file documented as of this encounter Procedures Procedure Name Priority Date/Time Associated Diagnosis Comments DERMATOPATHOLOGY Routine 02/12/2024 12:0 0 AM CDT Neoplasm of uncertain behavior of skin Inflamed seborrheic keratosis Other specified erythematous conditions documented in this encounter Results * DERMATOPATHOLOGY (02/12/2024 12:00 AM CDT) Case Report Dermatopathology Report Case: [id number] Authorizing Provider: Brooke House PA-C Collected: 02/12/2024 12:00 AM Ordering Location: [facility] - Received: 02/16/2024 12:59 PM [...] IRRITATED (L82.0) 4:37 PM CDT DERMATOPATHOLOGY LABORATORY at 1637 CDT Clinical History A: BCC B: SCC C: [...] specimen consists of a shave biopsy measuring [id number] mm. Jar 0. Specimen C: Received is one formalin filled container labeled with the patient's name and designated left clavicular chest. The specimen consists of a shave biopsy measuring 7x4x2 mm. Jar 0. Specimen D: Received is one formalin filled container labeled with the patients name and designated left upper back. The specimen consists of a shave removal measuring [id number];51j63h1;20x 14x3;71i65s1;32x20x 8 mm. Jar 0. Specimen E: Received [...] specimen consists of a shave removal measuring [id number] mm. Jar 0. 4 4:37 PM T [...] characteristic determined by the Dermatopathology Laboratory at [facility], directed by Dr. Dileep Diaz. These tests need not be, and therefore are not, approved by the [place] Food and Drug Administration. The tests are used for clinical purposes. Billing Codes Specimen Charges Stain Charges 34683 63395 12552 10695 81115 28325 32440 1 1 1 1 1 1 1 [...] PM CDT Brooke House PA-C LAB - PATHOLOGY/CYTOLOGY IVORY ZHU Final Result DERMATOPATHOLOGY LABORATORY [facility] - Department of Dermatology [address] [phone] documented in this encounter Visit Diagnoses Diagnosis Neoplasm of uncertain behavior of skin Inflamed seborrheic keratosis Other specified erythematous conditions documented in this encounter Care Teams Business Education Instructor Relationship Specialty Start Date End Date Kj Langley MD [address] [place] [address] PCP - General 12/04/09 Alexis Jolley MD [address] [place] [address] Rheumatology 04/30/11 documented as of this encounter
--- OUTSIDE RECORDS SUMMARY | 2025-01-10 07:50 | XMS_ITS | Encounter Summary ---
Author Organization [facility] Address [address] [place] [address] Care Team Providers Care Supervisor Border Department Name Role Phone Kj Langley MD Primary Care Provider Alexis Jolley MD Unavailable Unavailable Encounter Details Date Type Department Care Team (Late st Contact Info) Description 10/05/2013 SS Outpatient Visit EXTERNAL NON-[facility] DEPT Alexis Jolley MD Social History Tobacco [...] on file Legal Sex Female 8:58 AM SLUBBER HAND Gender Identity Not on file Sexual Orientation Not on file Occupation Industry Job Start Date Job End Date Retired from [employer] Not on file Not on file Not on file documented as of this encounter Plan of Treatment Not on file documented as of this encounter Visit Diagnoses Not on filedocumented in this encounter Care Teams Supervisor Border Department Relationship Specialty Start Date End Date Kj Langley MD [address] [place] [address] PCP - General 12/04/09 Alexis Jolley MD [address] [place] [address] Rheumatology 04/30/11 documented as of this encounter
--- OUTSIDE RECORDS SUMMARY | 2025-01-10 07:50 | XMS_ITS | Clinical Summary ---
Author Organization [facility] Address [address] [place] [address] Care Team Providers Care Sheet Metal Worker Helper Name Role Phone Kj Langley MD Primary Care Provider [phone] Alexis Jolley MD Unavailable Unavailable Source Comments [facility],non-owned Affiliates and Associated Physician Practices is amultiple site organization consisting of ambulatory clinics and hospital sitesin [place], [place], [place] and [place]. This disclosure is being madepursuant to the Care Everywhere program and may not contain all information available regarding this patient. Last updated 18.[facility] Allergies Active Allergy Reactions Criticality Noted Date Comments Oxycodone-Acetaminophen 01/16/2014 Medications * Be aware that medications may not be up to date on this document. Alwaysverify current medications with the patient. Vitamin D 2000 UNIT TABS Take 2000 Units by mouth daily. Active Elbow Support MISCIndications:L ateral epicondylitis Use. On right elbow 1 0 12/05/19 10 Active simvastatin (ZOCOR) 40 MG tablet Take 40 mg by mouth at bedtime. Active omeprazole (PRILOSEC) 20 MG capsule Take 1 Cap by mouth daily before breakfast. 90 Cap 3 07/15/19 11 Active varenicline (CHANTIX STARTING MONTH ) 0.5 MG X 11 & 1 MG X 42 tablets Take by mouth as directed. Take 0.5 mg daily days 1-3, twice daily days 4-7, then 1 mg twice daily Active acetaminophen (TYLENOL) 500 MG tabletIndications :Rheumatoid arthritis(714.0) ([facility]) Take 2 Tabs by mouth 3 times daily. Maximum allowable Acetaminophen amount = 4 Grams / 24 hours. 30 Tab 12 10/29/19 13 Active Aspirin 81 MG TBEC Take by mouth. Activ e predniSONE (DELTASONE) 5 MG tablet TAKE ONE TABLET BY MOUTH ONCE DAILY 90 Tab 3 10/10/19 14 Active ibuprofen (MOTRIN) 200 MG tablet Take 400 mg by mouth every 8 hours as needed for Pain. Active JANTOVEN 3 MG tablet 07/24/19 15 Active Tuberculin-Allerg y Syringes 25G X 5/8 1 ML MISCIndications:R heumatoid arthritis(714.0) ([facility]) Inject 1 mL subcutaneously every 7 days. 12 Each 2 08/18/19 15 Active leflunomide (ARAVA) 10 MG tabletIndications :Rheumatoid arthritis(714.0) ([facility]) Take 1 Tab by mouth once daily. 90 Tab 2 08/18/19 15 Active folic acid (FOLVITE) 1 MG tablet TAKE ONE TABLET BY MOUTH ONCE DAILY 90 Tab 3 11/14/19 15 Active traMADol (ULTRAM) 50 MG tabletIndications :Rheumatoid arthritis(714.0) ([facility]) Take 0.5-1 Tabs by mouth 3 times daily as needed for Pain. 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 Gender Identity Not on file Sexual Orientation Not on file Occupation Industry Job Start Date Job End Date Retired from [employer] Not on file Not on file Not on file Last Filed Vital Signs Vital Sign Reading Time Taken Comments Blood Pressure 118/72 03/06/2015 11:38 AM CDT Pulse 80 03/06/2015 11:38 AM CDT Temperature - - Respiratory Rate - - Oxygen Saturation - - Inhaled Oxygen Concentration - - Weight 72.5 kg (159 lb 12.8 oz) 015 11:38 AM CDT Height 172.7 cm (5' 8) 03/06/2015 11:3 8 AM CDT Body Mass Index 24.3 03/06/2015 11:38 AM CDT Plan of Treatment Health Maintenance Due Date Last Done Comments DTAP/TDAP/TD VACCINES (1 - Tdap) 1960 PNEUMOCOCCAL VACCINE 50+ (1 of 1 - PCV) 1991 ZOSTER VACCINE (1 of 2) 1991 Respiratory Syncytial Virus (RSV) Vaccine Pt: or over 60 yrs (1 - 1-dose 75+ series) 2016 COVID-19 VACCINE ( season) 2024 DEPRESSION SCREENING 06/15/2024 MEDICARE AWV CALENDAR YEAR 2024 INFLUENZA VACCINE (#1) 2025 BONE DENSITY TESTING Completed 07/20/2017, 09/14/2014, 05/15/2011, Additional history exists HEPATITIS B VACCINE Aged Out No longe r eligible based on patient's age to complete this topic HIB VACCINE Aged Out No longer eligi ble based on patient's age to complete this topic HPV VACCINE Aged Out No longer eligi ble based on patient's age to complete this topic MENINGOCOCCAL (Group B) VACCINE SHARED DECISION-MAKING Aged Out No longer eligible based on patient's age to complete this topic MENINGOCOCCAL GROUPS A/C/Y/W VACCINE Aged Out No longer eligible based on patient's age to complete this topic Procedures Procedure Name Priority Date/Time Associated Diagnosis Comments DEXA BONE DENSITY AXIAL SKELETON Routine 07/20/2017 2:31 PM LINING VAMPER Seropositive rheumatoid arthritis of multiple sites Drug therapy Arthritis of both knees from Last 3 Months or Most Recently Relevant to Health Maintenance Results * DEXA BONE DENSITY AXIAL SKELETON (07/20/2017 2:31 PM LINING VAMPER) Anatomical Region Laterality Modality Mammography 07/20/2017 2:33 PM LINING VAMPER Narrative 07/20/2017 2:34 PM LINING VAMPER BONE MINERAL DENSITY STUDY INDICATION: Postmenopausal ovarian [...] BELOW T-SCORE Alexis Jolley MD DEXA ORDERABLES Final Result from Last 3 Months or Most Recently Relevant to Health Maintenance Insurance [facility] MANAGED MEDICARE ADV MEDICARE [facility] MANAGED MEDICARE ADV Care Teams Sheet Metal Worker Helper Relationship Specialty Start Date End Date Kj Langley MD [address] [place] [address] PCP - General 12/04/09 Alexis Jolley MD [address] [facility] [place] [address] Rheumatology 04/30/11
== END 2025-01-10 07:46 | disposition home or self-care (01) ==
PROVIDERS: PCP Family Medicine; Visit Provider Internal Medicine
DX: Z78.0 Asymptomatic menopausal state (principal); M85.852 Other specified disorders of bone density and structure, left thigh; M85.851 Other specified disorders of bone density and structure, right thigh; M81.0 Age-related osteoporosis without current pathological fracture
CPT/HCPCS: 77080

== ENCOUNTER 2025-06-13 10:43 | Outpatient (CLI) | payer MEDICARE, SELFPAY ==
[2025-06-13 11:18] LABS: Hematocrit 45.9 % (37.0-47.0); Hemoglobin 15.1 g/dL (12.0-15.0); Immature Granulocyte Percent A 0.8 % (0-0.5); Lymphocytes Absolute Auto 2.43 K/mm3 (0.9-3.2); Mean Corpuscular HGB Conc 32.9 g/dl (32-36); Mean Corpuscular Hemoglobin 32.8 pg (26-34); Mean Corpuscular Volume 99.8 fl (80-100); Nucleated Red Blood Cells Absolute Auto 0.000 K/mm3 (0.0-0.012); Nucleated Red Blood Cells Perc 0.0 % (0.0-0.2); Platelet Count Result 184 k/mm3 (150-375); Red Blood Count 4.60 M/mm3 (4.2-5.4); White Blood Count 10.8 K/mm3 (4.5-10.0)
--- OUTSIDE RECORDS SUMMARY | 2025-06-13 11:29 | XMS_ITS | Encounter Summary ---
Author Organization [facility] Address [facility] [place] [address] Care Team Providers Care Boat Oar Maker Name Role Phone Kj Langley MD Primary Care Provider [phone] Alexis Jolley MD Unavailable Unavailable Encounter Details Date Type Department Care Team (Late st Contact Info) Description 02/12/2024 Lab Requisition [facility] - DermPath Lab [address] [place] [id number] Brooke House, PA-C [address] [place] [address] Neoplasm of uncertain behavior of [...] on file Legal Sex Female 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 Jar 0. Specimen C: Received is one formalin filled container labeled with the patient's name and designated left clavicular chest. The specimen consists of a shave biopsy measuring 7x4x2 mm. Jar 0. Specimen D: Received is one formalin filled container labeled with the patients name and designated left upper back. The specimen consists of a shave removal measuring 67v12m1;74l99d3;20x 14x3;83o59c7;32x20x 8 mm. Jar 0. Specimen E: Received [...] specimen consists of a shave removal measuring [id number] mm. Jar 0. 4 4:37 PM T [...] characteristic determined by the Dermatopathology Laboratory at [facility], directed by Dr. Dileep Diaz. These tests need not be, and therefore are not, approved by the [place] Food and Drug Administration. The tests are used for clinical purposes. Billing Codes Specimen Charges Stain Charges 66310 88113 42432 76197 04718 34313 83329 1 1 1 1 1 1 1 [...] PATHOLOGY/CYTOLOGY IVORY ZHU Final Result DERMATOPATHOLOGY LABORATORY [facility] - Department of Dermatology [address], [address] [phone] documented in this encounter Visit Diagnoses Diagnosis Neoplasm of uncertain behavior of skin Inflamed seborrheic keratosis Other specified erythematous conditions documented in this encounter Care Teams Boat Oar Maker Relationship Specialty Start Date End Date Kj Langley MD [address] [place] [address] PCP - General 12/04/09 Alexis Jolley MD [address] [place] [address] Rheumatology 04/30/11 documented as of this encounter
--- OUTSIDE RECORDS SUMMARY | 2025-06-13 11:29 | XMS_ITS | Encounter Summary ---
Author Organization [facility] Address [address] 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
--- OUTSIDE RECORDS SUMMARY | 2025-06-13 11:29 | XMS_ITS | Clinical Summary ---
Author Organization [facility] Address [address] [place] [address] Care Team Providers Care Credit Correspondence Clerk Name Role Phone Kj Langley MD Primary Care Provider [phone] Alexis Jolley MD Unavailable Unavailable Source Comments [facility],non-owned Affiliates and Associated Physician Practices is amultiple site organization consisting of ambulatory clinics and hospital sitesin [place], [place], [place] and [place]. This disclosure is being madepursuant to the Care Everywhere program and may not contain all information available regarding this patient. Last updated 18.[facility] Allergies Active Allergy Reactions Criticality Noted Date [...] acetaminophen (TYLENOL) 500 MG tabletIndications :Rheumatoid arthritis(714.0) ([facility]) Take 2 Tabs by mouth [...] X 5/8 1 ML MISCIndications:R heumatoid arthritis(714.0) ([facility]) Inject 1 mL subcutaneously every 7 days. 12 Each 2 08/18/19 15 Active leflunomide (ARAVA) 10 MG tabletIndications :Rheumatoid arthritis(714.0) ([facility]) Take 1 Tab by mouth once daily. 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 Gender Identity Not on file Sexual Orientation [...] Health Maintenance Due Date Last Done Comments COVID-19 VACCINE (#1) 1945 DTAP/TDAP/TD VACCINES (1 - Tdap) 1960 PNEUMOCOCCAL VACCINE 50+ (1 of 1 - PCV) 1991 ZOSTER VACCINE (1 of 2) 1991 Respiratory Syncytial Virus (RSV) Vaccine Pt: or over 60 yrs (1 - 1-dose 75+ series) 2016 DEPRESSION SCREENING 06/15/2024 MEDICARE AWV CALENDAR YEAR [...] DENSITY AXIAL SKELETON Routine 07/20/2017 2:31 PM SANDWICH MACHINE OPERATOR Seropositive rheumatoid arthritis of multiple sites Drug therapy Arthritis of both knees from Last 3 Months or Most Recently Relevant to Health Maintenance Results * DEXA BONE DENSITY AXIAL SKELETON (07/20/2017 2:31 PM SANDWICH MACHINE OPERATOR) Anatomical Region Laterality Modality Mammography 07/20/2017 2:33 PM SANDWICH MACHINE OPERATOR Narrative 07/20/2017 2:34 PM SANDWICH MACHINE OPERATOR BONE MINERAL DENSITY STUDY INDICATION: Postmenopausal ovarian [...] Most Recently Relevant to Health Maintenance Insurance [facility] MANAGED MEDICARE [facility] MEDICARE [facility] MANAGED MEDICARE ADV Care Teams Credit Correspondence Clerk Relationship Specialty Start Date End Date Kj Langley MD [address] [facility] [place] [address] PCP - General 12/04/09 Alexis Jolley MD [address] [place] [address] Rheumatology 04/30/11
[2025-06-13 11:36] LABS: Add Urine Microscopic? YES; Appearance Urine Cloudy (Clear); Glucose Urine UA Negative (Negative); Leukocyte Esterase Ur 1+ LEU/UL (Negative); Need Manual Microscopic Reviewed; Nitrate Urine Negative (Negative); Non Pathogenic Casts 0-2; Specific Grav Ur 1.012 (1.001-1.035)
[2025-06-13 11:46] LABS: Alanine Aminotransferase 18 U/L (6-35); Albumin Level 3.9 g/dL (3.5-5.1); Alkaline Phosphatase 79 U/L (38-126); Anion Gap 7 mmol/L (4-12); Aspartate Amino Transferase 36 U/L (14-36); Bilirubin,Total 1.1 mg/dL (0.2-1.3); Blood Urea Nitrogen 20 mg/dL (7-17); CRP < 0.5 mg/dL (<1.0); Calcium 9.6 mg/dL (8.4-10.2); Carbon Dioxide 30 mmol/L (22-30); Chloride 104 mmol/L (98-107); Estimated Glomerular Filt Rate 48; Glucose 94 mg/dL (65-110); Potassium 4.3 mmol/L (3.4-5.0); Sodium 141 mmol/L (137-145); Total Protein 7.3 g/dL (6.3-8.2)
== END 2025-06-13 10:44 | disposition home or self-care (01) ==
PROVIDERS: PCP Family Medicine; Visit Provider Internal Medicine
DX: M05.9 Rheumatoid arthritis with rheumatoid factor, unspecified (principal); Z79.899 Other long term (current) drug therapy
CPT/HCPCS: 36415; 80053; 81001; 84100; 85025; 85652; 86140